=== PATIENT | female | born 1990 | race Caucasian/White ===

== ENCOUNTER 2020-03-29 08:54 | Outpatient (REF) | payer MEDICAID, SELFPAY | END 2020-03-29 08:55 | disposition home or self-care (01) | LOC: HO.LAB 08:54 | PROVIDERS: Visit Provider Internal Medicine | DX: Z20.828 Contact with and (suspected) exposure to other viral communicable diseases (principal) | CPT/HCPCS: C9803; U0003 ==

== ENCOUNTER 2020-04-17 17:21 | Emergency (ER) | payer MEDICAID, SELFPAY ==
--- NOTE | 2020-04-17 | ECG_ITS ---
Test Reason : CHESTPRESSURE Blood Pressure : / mmHG Vent. Rate : 082 BPM Atrial Rate : 082 BPM P-R Int : 150 ms QRS Dur : 090 ms QT Int : 366 ms P-R-T Axes : 064 077 051 degrees QTc Int : 427 ms Normal sinus rhythm with sinus arrhythmia Normal ECG No previous ECGs available Referred By: Bryon Ness Electronically Signed By:BLANCA DOHERTY MD
[2020-04-17 17:25] VITALS: BP 117/74; PULSE 85; RESP 18; TEMP 36.7; O2SAT 100
--- NOTE | 2020-04-17 17:40 | XR_ITS ---
EXAMINATION: XR chest 2V CLINICAL INFORMATION: Pain COMPARISON: No prior chest x-ray available in our system for comparison at the time of this dictation. TECHNIQUE: Frontal and lateral Lungs and Alessandra: Both lungs are clear. Pleura: Normal. Costophrenic angles are sharp. No pneumothorax. Heart: The heart is normal in size. Mediastinum: The mediastinum is within normal limits.. Bones: Skeletal structures included are normal for patient's age. XR/XR chest 2V IMPRESSION: Normal chest x-ray.
--- NOTE | 2020-04-17 19:02 | ED.CHESTPAIN ---
HPI - Chest Pain General Chief Complaint: Chest Pain Stated Complaint: ANXIETY,CHEST TIGHTNESS,SOB Time Seen by Provider: 04/17/20 17:40 History of Present Illness HPI narrative: Patient complains of episode of hyperventilating breathing fast palpitations feeling anxious , a mild headache but no weakness numbness or vision change, pain in the chest that was worse with movement and deep breath and was continuous not related to exertion no sweating no nausea no vomiting, accompanied by a feeling of tingling in the arms and legs, no fainting, no recent cough or fever, patient did have a recent COVID illness 2 weeks ago Right now symptoms are moderate they began half an hour ago and they continue unchanged She has had several prior similar episodes none of which were related to exertion which resolved on their own Related Data Previous Rx's Medication Instructions Recorded lorazepam [Ativan] 1 mg PO TID PRN #10 tab 04/17/20 lorazepam [Ativan] 1 mg PO TID PRN #10 tab 04/17/20 Allergies Allergy/AdvReac Type Severity Reaction Status Date / Time No Known Allergies Allergy Mild NOT Unverified 02/07/20 17:27 APPLICABLE Review of Systems Review of Systems: Positive for chest pain shortness of breath palpitations and tingling in extremities as well as feeling anxious Negative for fever cough feeling faint, fainting, weakness numbness confusion, no sweating, not related to exertion no abdominal pain no nausea no vomiting no diarrhea, no changes to bowel or bladder no burning with urination no frequency, no back pain no neck pain no rash, no leg swelling, or leg pain or calf pain PMFSH Past Medical History Medical History (Updated 04/17/20 @ 19:48 by TREVER Salazar) Gastritis Surgical History (Updated 04/17/20 @ 17:28 by Beverly Corral) H/O: hysterectomy Social History Social History Alcohol intake: never Smoked in Last 30 Days: No Use of substances other than those prescribed or required for medical reasons: No Advance Directives: No Advance Directives Information Provided: Yes Physical Exam Vital Signs: Vital Signs: Last Vital Signs Temp 98.0 F 04/17/20 17:25 Pulse 85 04/17/20 17:25 Resp 18 04/17/20 17:25 BP 117/74 04/17/20 17:25 Pulse Ox 100 04/17/20 17:25 Body Mass Index 30.0 Patient is breathing rapidly and anxious appearing, no acute distress, speaking full sentences, no respiratory distress The pharynx is clear and moist The eyes have no redness, no discharge The neck is supple without lymphadenopathy The chest is clear with full symmetrical equal breath sounds, no adventitious sounds The heart rate and rhythm is regular, no murmurs The abdomen is soft and nontender The extremities there is no calf tenderness or swelling, there is no edema Skin no rash Neuro no focal deficit, so patient is speaking full sentences, interacting appropriately, gait and balance are normal, motor is 5/5 x4, cerebellar exam is normal Course Course Course Narrative: EKG and chest x-ray were normal The patient was treated with Ativan with good relief of symptoms Her symptoms were not consistent with cardiac as they were fully reproducible with deep breath movement and palpation, she was PERC negative with a score of 0 and history and physical were consistent with hyperventilation and anxiety MDM - Chest Pain ECG Data ECG #1: Interpretation: EKG was normal sinus rhythm with a rate of 82 normal HI normal QRS duration QT was normal, there was no acute ischemic change, no acute ST changes Discharge Plan Discharge Clinical Impression: Atypical chest pain, Anxiety Patient Disposition: Home, Self-Care Additional Instructions: Your EKG and chest x-ray were normal Your symptoms were consistent with anxiety attack and were relieved with Ativan which is a good medicine for anxiety Follow with primary doctor for further evaluation Return to ER any time for any change or worsening chest pain, difficulty breathing, any worse condition or any concerns Prescriptions: New lorazepam [Ativan] 1 mg tablet 1 mg PO TID PRN (Reason: anxiety) Qty: 10 RF: 0 lorazepam [Ativan] 1 mg tablet 1 mg PO TID PRN (Reason: anxiety) Qty: 10 RF: 0 Interventions: ED Discharge Assessment Last Done: 04/17/20 20:07 Print Language: Beninese
[2020-04-17] MEDS: LORazepam 1 MG TABLET PO (19:05)
--- NOTE | 2020-04-17 19:11 | PC.NURSE ---
ASSUMED CARE OF PT. PT RESTING IN STRETCHER C/O MID STERNAL CP RATING PAIN 3/10. PT ALSO C/O ANXIETY. PT MEDICATED PER EMAR FOR ANXIETY. PA IN ROOM SPEAKING [place]ENLAND[place] WITH PT. PT AWAITING FURTHER ORDERS.
[2020-04-17] MEDS: Acetaminophen 325 MG TABLET 650 MG PO (20:12)
== END 2020-04-17 20:10 | disposition home or self-care (01) ==
PROVIDERS: Emergency Provider Emergency Medicine
DX: R51.9 Headache, unspecified (principal); R07.89 Other chest pain; F41.1 Generalized anxiety disorder; F43.0 Acute stress reaction; Z79.899 Other long term (current) drug therapy
CPT/HCPCS: 71046; 93005; 99283; 99284

== ENCOUNTER 2020-04-28 09:52 | Outpatient (REF) | payer MEDICAID, SELFPAY | END 2020-04-28 09:53 | disposition home or self-care (01) | LOC: HO.LAB 09:52 | PROVIDERS: Visit Provider Internal Medicine | DX: Z20.828 Contact with and (suspected) exposure to other viral communicable diseases (principal) | CPT/HCPCS: C9803; U0003 ==

== ENCOUNTER 2020-05-31 07:56 | Outpatient (REF) | payer MEDICAID, SELFPAY | END 2020-05-31 07:57 | disposition home or self-care (01) | LOC: HO.LAB 07:56 | PROVIDERS: Visit Provider Internal Medicine | DX: Z20.822 Contact with and (suspected) exposure to COVID-19 (principal) | CPT/HCPCS: 36415; C9803; U0003 ==

== ENCOUNTER → 2020-08-26 11:04 | Outpatient (BNVA) | payer MEDICAID, SELFPAY | PROVIDERS: Visit Provider Obstetrics & Gynecology | DX: R10.2 Pelvic and perineal pain (principal) | CPT/HCPCS: 99212 ==

== ENCOUNTER 2020-09-02 11:16 | Outpatient (REF) | payer MEDICAID, SELFPAY ==
--- NOTE | ~2020-09-02 | US_ITS ---
EXAMINATION: PELVIC ULTRASOUND CLINICAL INFORMATION: PELVIC AND PERINEAL PAIN COMPARISON: Previous pelvic ultrasound February 2019 TECHNIQUE: Transabdominal and transvaginal pelvic ultrasound was performed. Transvaginal exam was performed for better visualization of the ovaries. FINDINGS: The uterus has been removed. The ovaries are normal in size. The right ovary measures 3.2 x 2.1 x 3 cm, volume 11 mL. The left ovary measures 3.6 x 2 x 2.4 cm, volume 9 mL. There are multiple small peripheral cysts or follicles seen in both ovaries. There is no fluid in the pelvis. US/US transvaginal IMPRESSION: Multiple small bilateral peripheral cysts or follicles seen in both ovaries. The ovaries are normal in size. Appearance is questionable for polycystic ovarian syndrome. Clinical correlation recommended.
--- NOTE | ~2020-09-02 | US_ITS ---
EXAMINATION: PELVIC ULTRASOUND CLINICAL INFORMATION: PELVIC AND PERINEAL PAIN COMPARISON: Previous pelvic ultrasound February 2019 TECHNIQUE: Transabdominal and transvaginal pelvic ultrasound was performed. Transvaginal exam was performed for better visualization of the ovaries. FINDINGS: The uterus has been removed. The ovaries are normal in size. The right ovary measures 3.2 x 2.1 x 3 cm, volume 11 mL. The left ovary measures 3.6 x 2 x 2.4 cm, volume 9 mL. There are multiple small peripheral cysts or follicles seen in both ovaries. There is no fluid in the pelvis. US/US pelvic complete IMPRESSION: Multiple small bilateral peripheral cysts or follicles seen in both ovaries. The ovaries are normal in size. Appearance is questionable for polycystic ovarian syndrome. Clinical correlation recommended.
== END 2020-09-02 11:17 | disposition home or self-care (01) ==
LOC: HO.US 11:16
PROVIDERS: Visit Provider Obstetrics & Gynecology
DX: R10.2 Pelvic and perineal pain (principal)
CPT/HCPCS: 76830; 76856

== ENCOUNTER → 2020-09-16 11:04 | Outpatient (BNVA) | payer MEDICAID, SELFPAY | PROVIDERS: Visit Provider Obstetrics & Gynecology ==

== ENCOUNTER 2020-11-15 13:53 | Emergency (ER) | payer MEDICAID, SELFPAY ==
--- NOTE | ~2020-11-15 | CT_ITS ---
EXAMINATION: CT ABDOMEN AND PELVIS WITH CONTRAST CLINICAL INFORMATION: Mid to lower back pain. Status post liposuction. COMPARISON: CT of the abdomen and pelvis done on 03/18/2018. TECHNIQUE: Multidetector volumetric images were obtained from the superior aspect of the liver through the pubic symphysis following administration 85 mL of Omnipaque 350 intravenous contrast. Sagittal and coronal reformatted images were obtained on the technologist's workstation. Oral contrast: No This CT examination was performed using dose optimization techniques as appropriate, variously including the following: *Automated exposure control *Adjustment of mA and/or kV according to patient size (this includes techniques or standardized protocols for targeted exams where dose is matched to indication/reason for exam; i.e. extremities or head) *Use of iterative reconstruction technique DLP: 637.0 mGy-cm FINDINGS: LUNG BASES: The visualized lung bases are unremarkable. LIVER, GALLBLADDER, AND BILIARY TREE: Mild diffuse hypodensity consistent with hepatic steatosis is present without any superimposed focal liver lesion. The gallbladder is collapsed, otherwise unremarkable. No evidence of any intrahepatic or extrahepatic biliary ductal dilatation present. PANCREAS: Unremarkable. SPLEEN: Unremarkable. ADRENAL GLANDS: Unremarkable. KIDNEYS AND URETERS: The kidneys are normal in size, shape, and attenuation. No hydronephrosis, hydroureter, or calculi seen. No perinephric stranding. BLADDER: Nearly empty, not evaluated. GASTROINTESTINAL TRACT: The small and large bowel are unremarkable. Nonvisualized appendix without any inflammatory changes around the cecum. ABDOMINAL WALL: Remarkable for a loculated simple-appearing fluid collection overlying the posterior subcutaneous fat seen at midline extending on either side along the flank, measures approximately 15 x 18 x 3 cm at its maximum craniocaudal by transverse by anteroposterior dimension, starting at the level of spinous process of L2 vertebral body and extending inferiorly to the level of S3 vertebral body. Specific note is made of mildly thickened margin of the collection. There is no evidence of any air-fluid level present. The mean Hounsfield value of the collection measures 15. Given the patient history of recent surgery, likely represent postsurgical seroma/hematoma. Differential includes evolving early stage phlegmon and/or abscess. Further differentiation cannot be made based on this imaging appearance alone. Specific note is made of absence of any communication within the abdomen or pelvis. LYMPH NODES: Multiple prominent bilateral groin lymph nodes are present. There are no pathologically enlarged retroperitoneal lymph node measures or pelvic lymphadenopathy. VASCULAR: Unremarkable. PELVIC VISCERA: Small volume free fluid is present within the dependent part of the pelvis with Hounsfield value of 0 no evidence of any pelvic mass. OSSEOUS STRUCTURES: Unremarkable. CT/CT abdomen pelvis w con IMPRESSION: 1. Abnormal study showing evidence of a large loculated simple-appearing fluid collection seen overlying the posterior subcutaneous fat at midline, and extending on either side along the flanks starting at the level of spinous processes of L2 to inferiorly extending to the level of S3 vertebral body, measures 15 x 18 x 3 cm at its maximum craniocaudal by transverse by anteroposterior dimension. There is no evidence of any air-fluid level present. Note is made of mild thickening along the peripheral margin of the collection with Hounsfield value of 15. Given the patient history of recent surgery, likely represent postsurgical seroma/hematoma. Differential however includes evolving early stage phlegmon and/or abscess. Further differentiation cannot be made based on this imaging appearance alone. No evidence of any intra-abdominal or intrapelvic communication. 2. Nonspecific small volume free fluid is also noted within the dependent part of the pelvis without evidence of any pelvic mass or free air. 3. Multiple prominent bilateral groin lymph nodes, of indeterminate etiology. 4. Mild diffuse hepatic steatosis.
[2020-11-15 13:55] VITALS: BP 146/83; PULSE 98; RESP 16; TEMP 36.7; O2SAT 99
--- NOTE | 2020-11-15 14:14 | ED.BACK ---
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 patient describes the pain is burning. No radiation of pain. No abdominal pain. She has had some intermittent chills but denies fever, nausea, vomiting, diarrhea. No urinary symptoms. The patient tells me she did stay in [place] for approximately 7 days after her procedure and was told that this was a normal postoperative course. Patient however lives in [place] and returned here and has continued to have discomfort. Patient cleared pre-operatively by [facility] Related Data Home Medications Medication Instructions Recorded Confirmed omeprazole magnesium 20 mg 20 mg PO DAILY 08/26/20 09/16/20 tablet,delayed release sennosides 8.6 mg capsule 8.6 mg PO DAILY 08/26/20 09/16/20 Previous Rx's Medication Instructions Recorded lorazepam [Ativan] 1 mg PO TID PRN #10 tab 04/17/20 lorazepam [Ativan] 1 mg PO TID PRN #10 tab 04/17/20 oxycodone 5 mg PO Q8H PRN #10 tab 11/15/20 Allergies Allergy/AdvReac Type Severity Reaction Status Date / Time No Known Allergies Allergy Mild NOT Verified 08/26/20 11:27 APPLICABLE Review of Systems Review of Systems: Yes all other systems are reviewed and are negative Constitutional: Constitutional: Reports no additional constitutional complaints, Denies body ache(s), Denies chills, Denies fever(s), Denies headache(s) and Denies weakness Eyes: Eyes: Reports no additional eye complaints and Denies change in vision ENT: Reports system reviewed and no additional complaints, except as documented, Denies dizziness, Denies headache(s), Denies nasal congestion, Denies nasal discharge and Denies neck pain Cardiovascular: Cardiovascular: Reports no additional cardiovascular complaints, Denies chest pain, Denies leg edema and Denies dyspnea Respiratory: Respiratory: Reports no additional respiratory complaints, Denies cough and Denies dyspnea Gastrointestinal: Gastrointestinal: Reports no additional gastrointestinal complaints, Denies abdominal pain, Denies diarrhea, Denies nausea and Denies vomiting Genitourinary: Genitourinary: Reports no additional female genitourinary complaints and Denies urinary incontinence Musculoskeletal: Musculoskeletal: Reports no additional musculoskeletal complaints, Reports back pain, Denies arthralgias, Denies joint swelling, Denies neck pain, Denies numbness and Denies tingling Integumentary/Breasts: Skin/Breast: Reports system reviewed and no additional complaints, except as docu and Denies rash Neurologic: Reports system reviewed and no additional complaints, except as documented, Denies Abnormal speech present, Denies dizziness, Denies headache(s), Denies numbness, Denies tingling and Denies weakness PMFSH Past Medical History Attestation statement: The following information was validated with the patient. Source: old records reviewed and nursing notes reviewed Medical History Gastritis Surgical History H/O: hysterectomy Social History Social History Alcohol intake: never Advance Directives: No Advance Directives Information Provided: Yes Patient : No Physical Exam Vital Signs: Vital Signs: Last Vital Signs Temp 98.4 F 11/15/20 16:30 Pulse 83 11/15/20 16:30 Resp 18 11/15/20 16:30 BP 110/55 L 11/15/20 16:30 Pulse Ox 100 11/15/20 16:30 Body Mass Index 30.0 Const: General: cooperative, healthy appearing, comfortable and no acute distress Orientation/consciousness: patient oriented x3 Limitations: no limitations HENMT: Head: Yes normal to inspection Ears: hearing grossly normal bilaterally General nose exam: Normal external nose present Face and sinus: Yes normal facial exam Mouth: Normal oral and palatal mucosa present Throat: Yes posterior oropharynx normal Eyes: General: appearance normal, both eyes and all related structures Pupils: Equal, round and reactive pupils present Neck: Neck: Yes normal visual inspection Chest: Chest palpation & inspection: normal inspection of the chest Resp: Effort & Inspection: normal respiratory effort Auscultation: clear to auscultation bilaterally Cardio: Rate: regular rate Rhythm: regular rhythm Peripheral pulses: Peripheral pulses 2+ throughout GI: Inspection: Yes normal to inspection Palpation (GI): Soft to palpation and nontender Auscultation: normal bowel sounds Back/Spine/Pelvis: Other: to the lower back there is an area of swelling which crosses the midline on both sites. Soft and tender. No fluctuance, erythma or warmth Thoracic/Lumbar Spine: thoracic and lumbar spine normal to inspection Skin: General skin exam: no rashes or lesions noted Neuro: General: patient oriented x3, no focal motor deficits and normal sensation to monofilament Cranial nerves: Yes Equal, round and reactive pupils present Cognition (Neuro): normal cognition Speech: No Abnormal speech present Gait exam (Neuro): Normal gait present Motor exam (neuro): 5/5 motor strength present throughout Extrem: General: Yes normal to inspection, Yes no pedal edema and Yes no calf tenderness Course Course Course Narrative: 30-year-old female here with lower back pain for approximately 1 month status post 360 [place]. Has had some chills but no other associated symptoms. On exam the patient has an area of soft tissue swelling which extends across the midline spine with no warmth or redness. There is some swelling which is soft but no induration or obvious abscess collection. Will check labs, UA, CT A/P, provide analgesia. 1620- CT shows evidence of a large loculated simple appearing fluid collection overlying the posterior subcutaneous fat midline extending to bilateral flanks. May represent postsurgical seroma, hematoma versus abscess. Will discuss with surgical team. 1640-D/w with Dr Renee. Agree not likely abscess with no fever, no leukocytosis and no clinical findings on exam concerning for infection. Likely hematoma/serotoma. Recommended additional compression, f/u next week in office. 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 wrapped with additional [place] wrap. Reviewed worrisome signs/symptoms with patient and when to return to ED. Comfortable with discharge home. MDM - Back Pain/Injury MDM Narrative Medical decision making narrative: seroma, abscess Differential Diagnosis Differential diagnosis: Likely strain of lumbar region Medical Records Attestation: I reviewed the patient's medical records. Lab Data Attestation: I reviewed the patient's lab results. Result diagrams: 11/15/20 14:39 11/15/20 14:39 Labs: Lab Results 11/15/20 11/15/20 11/15/20 Range/Units 14:39 14:39 14:47 WBC 10.9 H (4.8-10.8) X10*3/uL RBC 3.93 L (4.20-5.50) X10*6/uL Hgb 11.0 L (12.0-16.0) g/dl Hct 34.0 L (37-47) % MCV 86.5 (80-98) fL MCH 28.0 (27.0-33.0) pg MCHC 32.4 (31.0-35.0) g/dl RDW 13.7 (11.0-16.0) % Plt Count 324 (160-400) X10*3/uL MPV 9.5 (9.4-12.3) fL Immature Gran % (Auto) 0.3 (0.0-0.4) % Neut % (Auto) 74.1 H (45-73) % Lymph % (Auto) 14.9 L (20-40) % [place] % (Auto) 9.7 (2-11) % Eos % (Auto) 0.6 (0-4) % Baso % (Auto) 0.4 (0-2) % Lymph # (Auto) 1.6 (1.2-4.9) X10*3/uL [place] # (Auto) 1.1 (0.1-1.2) X10*3/uL Eos # (Auto) 0.1 (0.0-0.4) X10*3/uL Baso # (Auto) 0.0 (0.0-0.2) X10*3/uL Abs Immat Gran (auto) 0.03 (0.00-0.03) X10*3/uL Absolute Neuts (auto) 8.1 (2.0-8.3) X10*3/uL Absolute Nucleated RBC 0.000 (0.0-0.012) X10*3/uL Nucleated RBC % (auto) 0.0 (0.0-0.2) /100WBC Sodium 138 (135-145) mmol/L Potassium 4.0 (3.3-5.1) mmol/L Chloride 104 (96-108) mmol/L Carbon Dioxide 24 (22-29) mmol/L Anion Gap 14 (12-20) BUN 7 L (9-16) mg/dL Creatinine 0.64 (0.5-1.4) mg/dL Estim Creat Clear Calc 131.0 Estimated GFR > 60 Random Glucose 85 (60-115) mg/dL Calcium 9.7 (8.4-10.2) mg/dL Magnesium 2.2 (1.6-2.6) mg/dL Total Bilirubin 0.7 (0.0-1.0) mg/dL Direct Bilirubin 0.4 (0.0-0.5) mg/dL AST 28 (5-31) U/L ALT 27 (0-31) U/L Alkaline Phosphatase 71 (39-117) U/L Total Protein 7.5 (6.5-8.0) g/dL Albumin 4.6 (3.5-5.0) g/dL Urine Color YELLOW Urine Appearance CLEAR Urine pH 6.0 (5.0-8.0) Ur Specific Orange 1.020 (1.005-1.025) Urine Protein TRACE (NEG-TRACE) MG/DL Urine Glucose (UA) NEG (NEG) MG/DL Urine Ketones NEG (NEG) MG/DL Urine Blood 2+ H (NEG) Urine Nitrite NEG (NEG) Ur Leukocyte Esterase NEG (NEG) Urine RBC 1-4 (0) /HPF Urine WBC 0-2 (0-4) /HPF Ur Squamous Epith Cells 2+ /LPF Urine Bacteria TRACE /LPF Urine Mucus 1+ /LPF Urine Test (NEGATIVE) 11/15/20 Range/Units 14:47 WBC (4.8-10.8) X10*3/uL RBC (4.20-5.50) X10*6/uL Hgb (12.0-16.0) g/dl Hct (37-47) % MCV (80-98) fL MCH (27.0-33.0) pg MCHC (31.0-35.0) g/dl RDW (11.0-16.0) % Plt Count (160-400) X10*3/uL MPV (9.4-12.3) fL Immature Gran % (Auto) (0.0-0.4) % Neut % (Auto) (45-73) % Lymph % (Auto) (20-40) % [place] % (Auto) (2-11) % Eos % (Auto) (0-4) % Baso % (Auto) (0-2) % Lymph # (Auto) (1.2-4.9) X10*3/uL [place] # (Auto) (0.1-1.2) X10*3/uL Eos # (Auto) (0.0-0.4) X10*3/uL Baso # (Auto) (0.0-0.2) X10*3/uL Abs Immat Gran (auto) (0.00-0.03) X10*3/uL Absolute Neuts (auto) (2.0-8.3) X10*3/uL Absolute Nucleated RBC (0.0-0.012) X10*3/uL Nucleated RBC % (auto) (0.0-0.2) /100WBC Sodium (135-145) mmol/L Potassium (3.3-5.1) mmol/L Chloride (96-108) mmol/L Carbon Dioxide (22-29) mmol/L Anion Gap (12-20) BUN (9-16) mg/dL Creatinine (0.5-1.4) mg/dL Estim Creat Clear Calc Estimated GFR Random Glucose (60-115) mg/dL Calcium (8.4-10.2) mg/dL Magnesium (1.6-2.6) mg/dL Total Bilirubin (0.0-1.0) mg/dL Direct Bilirubin (0.0-0.5) mg/dL AST (5-31) U/L ALT (0-31) U/L Alkaline Phosphatase (39-117) U/L Total Protein (6.5-8.0) g/dL Albumin (3.5-5.0) g/dL Urine Color Urine Appearance Urine pH (5.0-8.0) Ur Specific Orange (1.005-1.025) Urine Protein (NEG-TRACE) MG/DL Urine Glucose (UA) (NEG) MG/DL Urine Ketones (NEG) MG/DL Urine Blood (NEG) Urine Nitrite (NEG) Ur Leukocyte Esterase (NEG) Urine RBC (0) /HPF Urine WBC (0-4) /HPF Ur Squamous Epith Cells /LPF Urine Bacteria /LPF Urine Mucus /LPF Urine Test NEGATIVE (NEGATIVE) Imaging Data CT scan - abdomen: Attestation: I personally reviewed and interpreted this imaging study as follows: Radiologist's impression: 1. Abnormal study showing evidence of a large loculated simple-appearing fluid collection seen overlying the posterior subcutaneous fat at midline, and extending on either side along the flanks starting at the level of spinous processes of L2 to inferiorly extending to the level of S3 vertebral body, measures 15 x 18 x 3 cm at its maximum craniocaudal by transverse by anteroposterior dimension. There is no evidence of any air-fluid level present. Note is made of mild thickening along the peripheral margin of the collection with Hounsfield value of 15. Given the patient history of recent surgery, likely represent postsurgical seroma/hematoma. Differential however includes evolving early stage phlegmon and/or abscess. Further differentiation cannot be made based on this imaging appearance alone. No evidence of any intra-abdominal or intrapelvic communication. 2. Nonspecific small volume free fluid is also noted within the dependent part of the pelvis without evidence of any pelvic mass or free air. 3. Multiple prominent bilateral groin lymph nodes, of indeterminate etiology. 4. Mild diffuse hepatic steatosis. Discharge Plan Discharge Clinical Impression: Seroma after procedure Patient Disposition: Home, Self-Care Instructions: Seroma (DC) Additional Instructions: Continue girdle daily, apply [place] wrap over the girdle Follow-up tuesday with the surgery team Prescriptions: New oxycodone 5 mg tablet 5 mg PO Q8H PRN (Reason: pain) Qty: 10 RF: 0 No Action lorazepam [Ativan] 1 mg tablet 1 mg PO TID PRN (Reason: anxiety) Qty: 10 RF: 0 lorazepam [Ativan] 1 mg tablet 1 mg PO TID PRN (Reason: anxiety) Qty: 10 RF: 0 senna 8.6 mg capsule 8.6 mg PO DAILY RF: 0 omeprazole magnesium [Prilosec OTC] 20 mg tablet,delayed release (DR/EC) 20 mg PO DAILY RF: 0 Referrals: Homa Freedman MD [Physician] - 2 days Print Language: Honduran
[2020-11-15] MEDS: Ketorolac Tromethamine 30 MG/ML VIAL IVPUSH (14:44)
[2020-11-15 14:45] LABS: MANUAL DIFF FLAG NO
[2020-11-15 14:47] LABS: Basophils Percent Auto 0.4 % (0-2); Eosinophils Absolute Auto 0.1 X10*3/uL (0.0-0.4); Eosinophils Percent Auto 0.6 % (0-4); Imm Gran Abs Auto 0.03 X10*3/uL (0.00-0.03); Imm Gran Pct Auto 0.3 % (0.0-0.4); Lymphocytes Absolute Auto 1.6 X10*3/uL (1.2-4.9); Lymphocytes Percent Auto 14.9 % (20-40); Mean Corpuscular HGB Conc 32.4 g/dl (31.0-35.0); Mean Corpuscular Volume 86.5 fL (80-98); Mean Platelet Volume 9.5 fL (9.4-12.3); Monocytes Absolute Auto 1.1 X10*3/uL (0.1-1.2); Monocytes Percent Auto 9.7 % (2-11); Neutrophils Absolute Auto 8.1 X10*3/uL (2.0-8.3); Neutrophils Percent Auto 74.1 % (45-73); Platelet Count 324 X10*3/uL (160-400); Red Blood Count 3.93 X10*6/uL (4.20-5.50); Red Cell Distribution Width 13.7 % (11.0-16.0); White Blood Count 10.9 X10*3/uL (4.8-10.8)
[2020-11-15 14:53] LABS: Appearance Urine CLEAR; Color Urine YELLOW; Glucose Urine UA NEG (NEG); Leukocyte Esterase Urine NEG (NEG); Nitrite Urine NEG (NEG); Urine Blood 2+ (NEG); Urine Ketones NEG (NEG); Urine Protein TRACE MG/DL (NEG-TRACE)
[2020-11-15 14:55] LABS: UPreg QC Valid YES; Urine Pregnancy NEGATIVE (NEGATIVE)
[2020-11-15 15:00] LABS: Bacteria Urine TRACE /LPF; Squamous Epithelial Cell Urine 2+ /LPF; WBC Urine 0-2 /HPF (0-4)
[2020-11-15 15:01] LABS: Mucus Urine 1+ /LPF
[2020-11-15 15:10] LABS: Alanine Aminotransferase 27 U/L (0-31); Albumin Level 4.6 g/dL (3.5-5.0); Alkaline Phosphatase 71 U/L (39-117); Anion Gap 14 (12-20); Aspartate Amino Transferase 28 U/L (5-31); Bilirubin Direct 0.4 mg/dL (0.0-0.5); Bilirubin Total 0.7 mg/dL (0.0-1.0); Blood Urea Nitrogen 7 mg/dL (9-16); Calcium 9.7 mg/dL (8.4-10.2); Carbon Dioxide 24 mmol/L (22-29); Chloride 104 mmol/L (96-108); Estimated Glomerular Filt Rate > 60; Glucose Random 85 mg/dL (60-115); Magnesium 2.2 mg/dL (1.6-2.6); Sodium 138 mmol/L (135-145); Total Protein 7.5 g/dL (6.5-8.0)
[2020-11-15] MEDS: iohexoL 350 MG/ML 100 ML INFUS..BTL IV (15:24)
[2020-11-15 15:41] VITALS: BP 114/59; PULSE 85; RESP 18; O2SAT 98
[2020-11-15] MEDS: Morphine Sulfate 4 MG/ML CARTRIDGE IVPUSH (15:42)
[2020-11-15 16:30] VITALS: BP 110/55; PULSE 83; RESP 18; TEMP 36.9; O2SAT 100
== END 2020-11-15 17:26 | disposition home or self-care (01) ==
PROVIDERS: Nurse Practitioner Family; Emergency Provider Emergency Medicine
DX: L76.34 Postprocedural seroma of skin and subcutaneous tissue following other procedure (principal); Y83.8 Other surgical procedures as the cause of abnormal reaction of the patient, or of later complication, without mention of misadventure at the time of the procedure; Y92.9 Unspecified place or not applicable
CPT/HCPCS: 36415; 74177; 80048; 80076; 81001; 81025; 83735; 85025; 96374; 96375; 99284; J1885; J2270; Q9967

== ENCOUNTER 2020-11-18 13:50 | Outpatient (RCR) | payer MEDICAID, SELFPAY | END 2020-11-26 11:43 | disposition home or self-care (01) | LOC: HO.WCC 13:50 | PROVIDERS: Visit Provider Physician Assistant | DX: L76.34 Postprocedural seroma of skin and subcutaneous tissue following other procedure (principal) | CPT/HCPCS: 99213 ==

== ENCOUNTER → 2020-12-02 10:05 | Outpatient (BNVA) | payer MEDICAID, SELFPAY | PROVIDERS: PCP Nurse Practitioner Primary Care; Referring Provider Nurse Practitioner Primary Care; Visit Provider Surgery | DX: Z48.817 Encounter for surgical aftercare following surgery on the skin and subcutaneous tissue (principal); Z87.2 Personal history of diseases of the skin and subcutaneous tissue | CPT/HCPCS: 99202 ==

== ENCOUNTER 2021-10-07 14:35 | Outpatient (REF) | payer MEDICAID, SELFPAY ==
--- NOTE | ~2021-10-07 | MM_ITS ---
EXAMINATION: MM DIAGNOSTIC DIGITAL BREAST TOMOSYNTHESIS, BILATERAL US DIAGNOSTIC ULTRASOUND BREAST, BILATERAL CLINICAL INFORMATION: 31-year-old with pain upper outer left breast and palpable mass upper outer right breast. History fat transfer breast augmentation performed in [place]2020. No prior breast imaging. No known family history breast cancer. COMPARISON: None (current study represents initial baseline exam). TECHNIQUE: Digital breast tomosynthesis is performed in both the craniocaudal and mediolateral oblique views along with computer-aided detection (CAD). Synthesized 2D images are generated from the tomosynthesis. Ultrasound of each breast is targeted to the areas of clinical concern using grayscale imaging and color Doppler without and with harmonics. Patient is able to point to the areas of concern at time of imaging. FINDINGS: There are scattered areas of fibroglandular density (ACR BI-RADS breast composition Category b). There is unremarkable parenchymal pattern without suspicious mass or architectural abnormality. No skin thickening or coarsening of the Geovany's ligaments. No abnormal calcifications. The axilla are unremarkable. Right breast has an incidental complicated circumscribed oil cyst corresponding to the area of palpable concern mid upper outer quadrant measuring approximately 1.8 x 2.0 cm. There is some geographic intermediate attenuation within the oil cyst. There is incomplete peripheral fine benign rim calcification around the oil cyst. Ultrasound left breast demonstrates no cystic or solid mass or architectural abnormality. No focal duct ectasia. No skin thickening or edema tracking in soft tissue planes. Ultrasound right breast demonstrates the circumscribed mildly complicated oil cyst 11:00 position 9 cm from nipple residing just beneath the skin and measuring approximately 1.9 x 1.5 cm. There is a vascular internal geographic solid component measuring 0.5 x 1.0 cm. There is no peripheral or internal color flow. There is mild increased through-transmission of sound. A few scattered fine satellite cystic foci are also noted adjacent to the dominant oil cyst in the upper outer quadrant, small measuring under 6 mm. There is no solid mass or architectural abnormality. No skin thickening or edema tracking in soft tissue planes. Results are discussed with the patient at time of visit, using an landscape maintenance internship. MM/MM tomosynthesis diagnostic BI IMPRESSION: Right: -No mammographic evidence of malignancy or inflammatory changes. -Dominant oil cyst upper outer right breast corresponding to area of palpable concern measuring just under 2 cm, likely sequela from prior breast surgery. There are some adjacent incidental small satellite cystic foci. Left: -No mammographic evidence of malignancy or inflammatory changes. -Unremarkable ultrasound left breast. ASSESSMENT: BI-RADS 2: Benign RECOMMENDATION: 1. Patient may be managed based on the clinical impression. 2. Otherwise, routine annual screening mammography, beginning age 40, or earlier as clinical risk factors warrant. This patient's information was entered into a reminder system with a target due date for their next mammogram.
== END 2021-10-07 14:36 | disposition home or self-care (01) ==
LOC: HO.MAMMO 14:35
PROVIDERS: PCP Nurse Practitioner Primary Care; Visit Provider Nurse Practitioner Primary Care
DX: N64.4 Mastodynia (principal)
CPT/HCPCS: 76642; 77062; 77066

== ENCOUNTER → 2021-11-03 08:44 | Outpatient (BNVA) | payer MEDICAID, SELFPAY | PROVIDERS: PCP Nurse Practitioner Primary Care; Visit Provider Surgery | DX: N60.01 Solitary cyst of right breast (principal) | CPT/HCPCS: 99212 ==

== ENCOUNTER 2022-04-26 15:53 | Emergency (ER) | payer MEDICAID, SELFPAY ==
--- NOTE | 2022-04-26 | ECG_ITS ---
Test Reason : CHEST TIGHTNESS Blood Pressure : / mmHG Vent. Rate : 065 BPM Atrial Rate : 065 BPM P-R Int : 162 ms QRS Dur : 094 ms QT Int : 404 ms P-R-T Axes : 071 085 034 degrees QTc Int : 420 ms Normal sinus rhythm with sinus arrhythmia Normal ECG When compared with ECG of 17-APR-2020 17:32, No significant change was found Referred By: Generic ED Physician Electronically Signed By:TAHIR SOTO MD
--- NOTE | ~2022-04-26 | XR_ITS ---
EXAMINATION: XR CHEST CLINICAL INFORMATION: Chest pain COMPARISON: 04.17.2020 TECHNIQUE: 2 views of the chest were obtained. FINDINGS: Normal symmetric lung volumes. No parenchymal consolidation. No pleural effusion. No pneumothorax. Cardiomediastinal silhouette and pulmonary vascularity are within normal limits. No acute osseous abnormalities. XR/XR chest 2V IMPRESSION: Clear lungs
[2022-04-26 18:11] VITALS: BP 129/82; PULSE 62; RESP 16; TEMP 36.3; O2SAT 99; BMI 30.9
--- NOTE | 2022-04-26 18:13 | ED.GENADULT ---
HPI - General Adult General Chief complaint: Chest Pain Stated complaint: chest pain,left arm numbness Related Data Home Medications Medication Instructions Recorded Confirmed omeprazole magnesium 20 mg 20 mg PO DAILY 08/26/20 11/03/21 tablet,delayed release (Prilosec OTC) sennosides 8.6 mg capsule (senna) 8.6 mg PO DAILY 08/26/20 09/16/20 ergocalciferol (vitamin D2) 1,250 1,250 mcg PO QWEEK 11/03/21 11/03/21 mcg (50,000 unit) capsule ferrous sulfate 325 mg (65 mg 325 mg PO Q OTHER DAY 11/03/21 11/03/21 iron) tablet (FeroSul) Previous Rx's Medication Instructions Recorded lorazepam 1 mg tablet (Ativan) 1 mg PO TID PRN anxiety #10 tabs 04/17/20 lorazepam 1 mg tablet (Ativan) 1 mg PO TID PRN anxiety #10 tabs 04/17/20 oxycodone 5 mg tablet 5 mg PO Q8H PRN pain #10 tabs 11/15/20 Allergies Allergy/AdvReac Type Severity Reaction Status Date / Time No Known Allergies Allergy Mild NOT Verified 04/26/22 18:16 APPLICABLE [facility] Past Medical History Medical History Gastritis Surgical History H/O plastic surgery H/O: hysterectomy Family History Family History Maternal Aunt Breast cancer Maternal Aunt Breast cancer Maternal Aunt Breast cancer Mother Uterine cancer Maternal Aunt Uterine cancer Social History Social History Alcohol intake: current Patient Tobacco Use Status: Never used Tobacco Advance Directives: No Physical Exam ED Vital Signs: BMI result Body Mass Index 30.9 Course Course Course Narrative: 31F who drank red Bull today and now has chest pain and left arm pain. Denies traumatic injury, has LUE pain, denies DM/HTN and denies family hx of early cardiac issue. VS reviewed GEN: NAD PULM: CTAB CVS: RRR, no murmurs ABD: NT/ND - EKG, CXR Discharge Plan Discharge Clinical Impression: Atypical chest pain Patient Disposition: Elopement Prescriptions: No Action lorazepam [Ativan] 1 mg tablet 1 mg PO TID PRN (Reason: anxiety) Qty: 10 0RF Rx Instructions: This medication causes drowsiness, no driving for 6 hours after taking lorazepam [Ativan] 1 mg tablet 1 mg PO TID PRN (Reason: anxiety) Qty: 10 0RF Rx Instructions: This medication may cause drowsiness, no driving for 6 hours after taking oxycodone 5 mg tablet 5 mg PO Q8H PRN (Reason: pain) Qty: 10 0RF senna 8.6 mg capsule 8.6 mg PO DAILY omeprazole magnesium [Prilosec OTC] 20 mg tablet,delayed release (DR/EC) 20 mg PO DAILY ferrous sulfate [FeroSul] 325 mg (65 mg iron) tablet 325 mg PO Q OTHER DAY ergocalciferol (vitamin D2) 1,250 mcg (50,000 unit) capsule 1,250 mcg PO QWEEK Interventions: ANDIEBS Worksheet Last Done: 04/27/22 00:07 Discharge Date/Time: 04/27/22 00:47
--- NOTE | 2022-04-26 22:40 | PC.NURSE ---
no response called 3 times
--- OUTSIDE RECORDS SUMMARY | 2022-04-27 00:23 | XMS_ITS | Continuity of Care Document ---
:1990 Author Organization [facility] Address [address] [place] [id number]- Care Team Providers Name Role Phone Teddy BARNETT, Sonu Magana Primary Care Physician Encounter [facility] Date(s): 09/26/20 - 10/26/20 [facility] [employer] [address] [place] [id number] Allergies, Adverse Reactions, Alerts Substance Reaction Severity Status NKA Active
--- OUTSIDE RECORDS SUMMARY | 2022-04-27 00:23 | XMS_ITS | Continuity of Care Document ---
:1990 Author Organization [facility] Address [address] [place] [phone]- Care Team Providers Name Role Phone Sonu Espinal MD Primary Care Physician Encounter [facility] Date(s): 10/21/20 - 10/28/20 [facility] [address] [id number] Attending Physician: Panchito BARNETT, Robbin Wallace Referring Physician: Sonu Espinal MD Allergies, Adverse Reactions, Alerts Substance Reaction Severity Status NKA Active Procedures Procedure Date Related Diagnosis Body Site Status Hysterectomy 2020 Completed Colonoscopy 2019 Completed Endoscopy 2019 Completed Vaginal delivery 2011 Completed Vaginal delivery 2007 Completed
--- OUTSIDE RECORDS SUMMARY | 2022-04-27 00:23 | XMS_ITS | Continuity of Care Document ---
:1990 Author Organization [facility] Address [address] [place] [phone]- Care Team Providers Name Role Phone Teddy BARNETT, Sonu Magana Primary Care Physician Encounter [facility] Date(s): 10/21/20 - 01/01/21 [facility] [address] [address]- Attending Physician: Not on Staff, Attending MD Referring Physician: Robbin Flanagan MD Allergies, Adverse Reactions, Alerts Substance Reaction Severity Status NKA Active
--- OUTSIDE RECORDS SUMMARY | 2022-04-27 00:23 | XMS_ITS | Continuity of Care Document ---
:1990 Author Organization [facility] Address [address] [place] [phone]- Care Team Providers Name Role Phone Sonu Espinal MD Primary Care Physician Encounter [facility] Date(s): 10/21/20 - 01/01/21 [facility] [address] [place] [id number]- Attending Physician: Not on Staff, Attending MD Referring Physician: Sonu Espinal MD Allergies, Adverse Reactions, Alerts Substance Reaction Severity Status NKA Active
--- OUTSIDE RECORDS SUMMARY | 2022-04-27 00:23 | XMS_ITS | Continuity of Care Document ---
:1990 Author Organization [facility] Address [address] [place] [phone]- Care Team Providers Name Role Phone Teddy BARNETT, Sonu Magana Primary Care Physician [phone] Encounter [facility] Date(s): 12/02/20 - 01/01/21 [facility] [address] [place] [id number]- Attending Physician: Brian Aquino Admitting Physician: AdmBrian contreras Referring Physician: Admtr, Ar8 Allergies, Adverse Reactions, Alerts Substance Reaction Severity Status NKA Active
== END 2022-04-27 00:47 | disposition left against medical advice (07) ==
PROVIDERS: Emergency Provider Emergency Medicine
DX: R07.89 Other chest pain (principal); R20.0 Anesthesia of skin; M79.602 Pain in left arm; Z79.899 Other long term (current) drug therapy
CPT/HCPCS: 71046; 93005; 99283

== ENCOUNTER 2022-09-18 18:26 | Emergency (ER) | payer MEDICAID, SELFPAY ==
[2022-09-18 18:39] VITALS: BP 129/87; PULSE 72; RESP 18; TEMP 36.6; O2SAT 100; BMI 31.7
--- NOTE | 2022-09-18 18:43 | ED_ITS ---
HPI - Headache General Chief Complaint: Headache <TREVER [place] - Last Filed: 09/18/22 18:46> Stated Complaint: headache, body shakes <TREVER Houston - Last Filed: 09/18/22 18:46> Time Seen by Provider: 09/18/22 19:17 <TREVER Houston - Last Filed: 09/18/22 18:46> Source: patient <TREVER Lamb - Last Filed: 09/18/22 19:49> Mode of arrival: ambulatory <TREVER Lamb - Last Filed: 09/18/22 19:49> Limitations: no limitations <TREVER Lamb - Last Filed: 09/18/22 19:49> History of Present Illness HPI Narrative: 32 yo female presents to the ER for evaluation of posterior headache for the last couple of days along with generalized body aches and pains. She reports nausea associated with the headache and some photophobia. She denies history of migraines. She denies any weakness, numbness, tingling. No neck pain or fevers. <TREVER Lamb - Last Filed: 09/18/22 19:49> MD elicited complaint: headache <TREVER Lamb - Last Filed: 09/18/22 19:49> Onset (ago): day(s) <TREVER Lamb - Last Filed: 09/18/22 19:49> Onset description: gradually <TREVER Lamb - Last Filed: 09/18/22 19:49> Location: occipital <TREVER Lamb - Last Filed: 09/18/22 19:49> Severity: moderate <TREVER Lamb Last Filed: 09/18/22 19:49> Quality & Timing: aching and throbbing <TREVER Lamb Last Filed: 09/18/22 19:49> Exacerbating factors: light and noise <TREVER Lamb - Last Filed: 09/18/22 19:49> Relieving factors: nothing <TREVER Lamb Last Filed: 09/18/22 19:49> Context: occurred at rest <TREVER Lamb - Last Filed: 09/18/22 19:49> Associated symptoms: nausea <TREVER Lamb - Last Filed: 09/18/22 19:49> Treatments prior to arrival: none <TREVER Lamb - Last Filed: 09/18/22 19:49> Related Data Home Medications: Home Medications Medication Instructions Recorded Confirmed omeprazole magnesium 20 mg 20 mg PO DAILY 08/26/20 11/03/21 tablet,delayed release (Prilosec OTC) sennosides 8.6 mg capsule (senna) 8.6 mg PO DAILY 08/26/20 09/16/20 ergocalciferol (vitamin D2) 1,250 1,250 mcg PO QWEEK 11/03/21 11/03/21 mcg (50,000 unit) capsule ferrous sulfate 325 mg (65 mg 325 mg PO Q OTHER DAY 11/03/21 11/03/21 iron) tablet (FeroSul) Previous Rx's Medication Instructions Recorded lorazepam 1 mg tablet (Ativan) 1 mg PO TID PRN anxiety #10 tabs 04/17/20 lorazepam 1 mg tablet (Ativan) 1 mg PO TID PRN anxiety #10 tabs 04/17/20 oxycodone 5 mg tablet 5 mg PO Q8H PRN pain #10 tabs 11/15/20 ramfunwvtm-jmyppkvfldzxi-qhzqfnul 1 cap PO Q8H PRN headache #10 caps 09/18/22 50 mg-300 mg-40 mg capsule (Fioricet) ondansetron 4 mg disintegrating 4 mg PO Q8H PRN nausea and 09/18/22 tablet vomiting #7 tabs <TREVER Houston - Last Filed: 09/18/22 18:46> Allergies/Adverse Reactions: Allergies Allergy/AdvReac Type Severity Reaction Status Date / Time No Known Allergies Allergy Mild NOT Verified 04/26/22 18:16 APPLICABLE <TREVER Houston - Last Filed: 09/18/22 18:46> Review of Systems Review of Systems: Yes all other systems are reviewed and are negative <TREVER Lamb - Last Filed: 09/18/22 19:49> PMFSH Past Medical History Medical History: Medical History Gastritis <TREVER Houston - Last Filed: 09/18/22 18:46> Surgical History: Surgical History H/O plastic surgery H/O: hysterectomy <TREVER Houston - Last Filed: 09/18/22 18:46> Family History Family History: Family History Maternal Aunt Breast cancer Maternal Aunt Breast cancer Maternal Aunt Breast cancer Mother Uterine cancer Maternal Aunt Uterine cancer <TREVER Houston - Last Filed: 09/18/22 18:46> Social History Social History: Social History Alcohol intake: current Patient Tobacco Use Status: Never used Tobacco Advance Directives: No Advance Directives Information Provided: Yes <TREVER Houston - Last Filed: 09/18/22 18:46> Physical Exam Vital Signs: Vital Signs: Last Vital Signs Temp 97.8 F 09/18/22 18:39 Pulse 72 09/18/22 18:39 Resp 18 09/18/22 18:39 BP 129/87 09/18/22 18:39 Pulse Ox 100 09/18/22 18:39 O2 Del Method Room Air 09/18/22 18:39 BMI result Body Mass Index 31.7 <TREVER Houston - Last Filed: 09/18/22 18:46> Vital Signs: Last Vital Signs Temp 97.8 F 09/18/22 18:39 Pulse 72 09/18/22 18:39 Resp 18 09/18/22 18:39 BP 129/87 09/18/22 18:39 Pulse Ox 100 09/18/22 18:39 O2 Del Method Room Air 09/18/22 18:39 BMI result Body Mass Index 31.7 <TREVER Lamb - Last Filed: 09/18/22 19:49> Appearance: Alert. Oriented X3. No acute distress. Head: normocephalic, atraumatic. Eyes: Pupils equal, round and reactive to light. ENT: Pharynx normal. No tonsillar swelling or exudate. Neck: Normal inspection. Neck supple. CVS: Normal heart rate and rhythm. Pulses normal. Respiratory: No respiratory distress. Breath sounds normal. Skin: Skin warm and dry. Normal skin color. Normal skin turgor. No rashes. Extremities: No lower extremity edema. No joint swelling. Neuro/psych: Oriented X 3. No motor deficit. No sensory deficit. CN II-XII intact. Normal speech and cognition. Steady gait <TREVER Lamb - Last Filed: 09/18/22 19:49> Course Course Course Narrative: RME - 32 yo Argentine speaking female presents to the ER for headaches and nausea for several days. Denies hx of migraines in the past. VSS. Patient has no focal deficits. Pt stable to return to the waiting room until treatment room becomes available. <TREVER Houston - Last Filed: 09/18/22 18:46> Medications Administered Discontinued Medications Generic Name Dose Route Start Last Admin Trade Name Freq PRN Reason Stop Dose Admin Ketorolac Tromethamine 30 mg 09/18/22 19:30 09/18/22 19:43 Ketorolac Tromethamine 30 Mg/Ml Vial IM 09/18/22 19:31 30 mg ONCE ONE Administration Ondansetron HCl 4 mg 09/18/22 19:30 09/18/22 19:43 Ondansetron Odt 4 Mg Tab.Rapdis TRANSLINGU 09/18/22 19:31 4 mg ONCE ONE Administration <TREVER Houston - Last Filed: 09/18/22 18:46> Medications Administered Discontinued Medications Generic Name Dose Route Start Last Admin Trade Name Freq PRN Reason Stop Dose Admin Ketorolac Tromethamine 30 mg 09/18/22 19:30 09/18/22 19:43 Ketorolac Tromethamine 30 Mg/Ml Vial IM 09/18/22 19:31 30 mg ONCE ONE Administration Ondansetron HCl 4 mg 09/18/22 19:30 09/18/22 19:43 Ondansetron Odt 4 Mg Tab.Rapdis TRANSLINGU 09/18/22 19:31 4 mg ONCE ONE Administration <TREVER Lamb - Last Filed: 09/18/22 19:49> Medical Decision Making Medical Decision Making MDM Narrative: 32 yo female presents to the ER for evaluation of headaches and nausea as well as body aches. Neuro intact on arrival. COVID negative. VSS and exam unremarkable. chatting on her cell phone and appears well. She was given toradol and zofran here. she is stable for d/c home w/ fioricet and zofran. <TREVER Lamb - Last Filed: 09/18/22 19:49> Differential Diagnosis Differential Diagnoses: The differential diagnosis associated with the presentation includes <TREVER Lamb Last Filed: 09/18/22 19:49> migraine headache, tension headache, cluster headache, viral syndrome, doubt SAH or meningitis <TREVER Lamb Last Filed: 09/18/22 19:49> Lab Data MDM Lab Attestation statement: I reviewed the patient's lab results. <TREVER Lamb Last Filed: 09/18/22 19:49> Labs: Lab Results 09/18/22 Range/Units 19:09 COVID-19 (JERRY) Negative (Negative) COVID-19 Clin Com See Note <TREVER Houston - Last Filed: 09/18/22 18:46> Lab Results 09/18/22 Range/Units 19:09 COVID-19 (JERRY) Negative (Negative) COVID-19 Clin Com See Note <TREVER Lamb - Last Filed: 09/18/22 19:49> External Record Review External record reviewed: Prior outpatient labs <TREVER Lamb - Last Filed: 09/18/22 19:49> Prescription Management I considered prescription management with: Pain Medication <TREVER Lamb Last Filed: 09/18/22 19:49> Critical Care Time Critical Care Time Critical Care Time: No <TREVER Lamb Last Filed: 09/18/22 19:49> Discharge Plan Discharge Clinical Impression: Headache <TREVER Houston Last Filed: 09/18/22 18:46> Patient Disposition: Home, Self-Care <TREVER Houston Last Filed: 09/18/22 18:46> Instructions: General Headache (ED) <TREVER Houston Last Filed: 09/18/22 18:46> Additional Instructions: You tested negative for COVID today You could have another viral illness. Rest and drink plenty of fluids. Take over the counter cold/flu medications as needed for your symptoms. Take the prescribed medications as directed - one is for headache and one is for nausea Follow up with your doctor If you develop new or worsening symptoms call 911 or come back to the ER for further evaluation. Latrell negativo para COVID hoy Podr?as tener otra enfermedad viral. Descanse y rocco muchos l?quidos. Protivin medicamentos de venta braden para el resfriado o la gripe seg?n sea necesario para gricelda s?ntomas. Protivin los medicamentos recetados seg?n las indicaciones: skyla para el dolor de genia y otro para las n?useas. Seguimiento con diallo m?dico Si desarrolla s?ntomas nuevos o que empeoran, llame al 911 o regrese a la janak de emergencias para sharron evaluaci?n adicional. <TREVER Houston - Last Filed: 09/18/22 18:46> Prescriptions: New iqxpsffxmi-psubtstgzjwva-tbng [Fioricet] 50-300-40 mg capsule 1 cap PO Q8H PRN (Reason: headache) Qty: 10 0RF ondansetron 4 mg tablet,disintegrating 4 mg PO Q8H PRN (Reason: nausea and vomiting) Qty: 7 0RF No Action lorazepam [Ativan] 1 mg tablet 1 mg PO TID PRN (Reason: anxiety) Qty: 10 0RF Rx Instructions: This medication causes drowsiness, no driving for 6 hours after taking lorazepam [Ativan] 1 mg tablet 1 mg PO TID PRN (Reason: anxiety) Qty: 10 0RF Rx Instructions: This medication may cause drowsiness, no driving for 6 hours after taking oxycodone 5 mg tablet 5 mg PO Q8H PRN (Reason: pain) Qty: 10 0RF senna 8.6 mg capsule 8.6 mg PO DAILY omeprazole magnesium [Prilosec OTC] 20 mg tablet,delayed release (DR/EC) 20 mg PO DAILY ferrous sulfate [FeroSul] 325 mg (65 mg iron) tablet 325 mg PO Q OTHER DAY ergocalciferol (vitamin D2) 1,250 mcg (50,000 unit) capsule 1,250 mcg PO QWEEK <TREVER Houston - Last Filed: 09/18/22 18:46> Stand Alone Forms: Work/School Release <TREVER Houston - Last Filed: 09/18/22 18:46>
[2022-09-18 19:25] LABS: COVID-19 Test Negative (Negative); IDNOW Serial# 08D9AD1C
[2022-09-18] MEDS: Ondansetron ODT 4 MG TAB.RAPDIS TRANSLINGU (19:43)
[2022-09-18] MEDS: Ketorolac Tromethamine 30 MG/ML VIAL IM (19:43)
== END 2022-09-18 19:55 | disposition home or self-care (01) ==
PROVIDERS: Physician Assistant Medical; Emergency Provider Internal Medicine
DX: R51.9 Headache, unspecified (principal); Z20.822 Contact with and (suspected) exposure to COVID-19
CPT/HCPCS: 87635; 96372; 99282; 99284; J1885

== ENCOUNTER 2022-10-13 08:41 | Emergency (ER) | payer MEDICAID, SELFPAY ==
[2022-10-13 08:55] VITALS: BP 128/78; PULSE 71; RESP 18; TEMP 36.6; O2SAT 99; BMI 30.9
[2022-10-13 09:39] LABS: COVID-19 Test Negative (Negative); IDNOW Serial# 6674DD1D; IDNOW Serial# BCCEAD1C; Strep A Nucleic Acid Negative (Negative)
--- NOTE | 2022-10-13 10:28 | ED.GENADULT ---
HPI - General Adult General Chief complaint: General Medical Stated complaint: Sore Throat Time Seen by Provider: 10/13/22 09:59 History of Present Illness HPI narrative: patient complains of sore throat and hoarse voice for past 24 hours, it hurts to swallow but she is able to swallow She has a mild runny nose no cough no difficulty breathing no nausea or vomiting no rash no ear pain Related Data Home Medications Medication Instructions Recorded Confirmed omeprazole magnesium 20 mg 20 mg PO DAILY 08/26/20 11/03/21 tablet,delayed release (Prilosec OTC) sennosides 8.6 mg capsule (senna) 8.6 mg PO DAILY 08/26/20 09/16/20 ergocalciferol (vitamin D2) 1,250 1,250 mcg PO QWEEK 11/03/21 11/03/21 mcg (50,000 unit) capsule ferrous sulfate 325 mg (65 mg 325 mg PO Q OTHER DAY 11/03/21 11/03/21 iron) tablet (FeroSul) Previous Rx's Medication Instructions Recorded lorazepam 1 mg tablet (Ativan) 1 mg PO TID PRN anxiety #10 tabs 04/17/20 lorazepam 1 mg tablet (Ativan) 1 mg PO TID PRN anxiety #10 tabs 04/17/20 oxycodone 5 mg tablet 5 mg PO Q8H PRN pain #10 tabs 11/15/20 psvvyhriyx-ideviuihrbxey-kziyfbpy 1 cap PO Q8H PRN headache #10 caps 09/18/22 50 mg-300 mg-40 mg capsule (Fioricet) ondansetron 4 mg disintegrating 4 mg PO Q8H PRN nausea and 09/18/22 tablet vomiting #7 tabs ibuprofen 600 mg tablet 600 mg PO Q6H PRN fever or pain 10/13/22 #20 tabs prednisone 20 mg tablet 40 mg PO DAILY 2 days #4 tabs 10/13/22 Allergies Allergy/AdvReac Type Severity Reaction Status Date / Time No Known Allergies Allergy Mild NOT Verified 10/13/22 08:54 APPLICABLE [facility] Past Medical History Medical History Gastritis Surgical History H/O plastic surgery H/O: hysterectomy Family History Family History Maternal Aunt Breast cancer Maternal Aunt Breast cancer Maternal Aunt Breast cancer Mother Uterine cancer Maternal Aunt Uterine cancer Social History Social History Alcohol intake: current Patient Tobacco Use Status: Never used Tobacco Advance Directives: No Advance Directives Information Provided: Yes Physical Exam ED Vital Signs: Vital Signs - 24 hr 10/13/22 08:55 Temperature 98 F Pulse Rate 71 Respiratory Rate 18 Blood Pressure 128/78 Pulse Oximetry 99 Oxygen Delivery Method Room Air BMI result Body Mass Index 30.9 general appearance no distress Eyes no redness or discharge The sinuses are nontender The pharynx had redness and some bilateral symmetric tonsillar swelling no exudate, the voice was hoarse, mucous membranes were moist, uvula was midline The neck was supple The chest was clear to auscultation bilateral Heart no murmur Extremities for range of motion x4 Skin no rash Course Course Course Narrative: strep and COVID tests were negative, patient it who tolerates liquid was treated with Decadron and Motrin and discharged, well-appearing Medical Decision Making Lab Data Labs: Lab Results 10/13/22 10/13/22 Range/Units 09:16 09:16 COVID-19 (JERRY) Negative (Negative) COVID-19 Clin Com See Note S. pyogenes GrpA KRISTINE Negative (Negative) Discharge Plan Discharge Clinical Impression: Pharyngitis Patient Disposition: Home, Self-Care Additional Instructions: test for COVID and strep were negative, so this is likely a viral sore throat We are treating with steroids for 2 days, Tylenol or Motrin for pain Drink plenty of fluids Sometimes honey and warm fluids is helpful Return any time any worse condition or any concerns Prescriptions: New prednisone 20 mg tablet 40 mg PO DAILY 2 Days Qty: 4 0RF ibuprofen 600 mg tablet 600 mg PO Q6H PRN (Reason: fever or pain) Qty: 20 0RF No Action lorazepam [Ativan] 1 mg tablet 1 mg PO TID PRN (Reason: anxiety) Qty: 10 0RF Rx Instructions: This medication causes drowsiness, no driving for 6 hours after taking lorazepam [Ativan] 1 mg tablet 1 mg PO TID PRN (Reason: anxiety) Qty: 10 0RF Rx Instructions: This medication may cause drowsiness, no driving for 6 hours after taking oxycodone 5 mg tablet 5 mg PO Q8H PRN (Reason: pain) Qty: 10 0RF kmjtrwrxnj-plrlklknudofv-utdx [Fioricet] 50-300-40 mg capsule 1 cap PO Q8H PRN (Reason: headache) Qty: 10 0RF ondansetron 4 mg tablet,disintegrating 4 mg PO Q8H PRN (Reason: nausea and vomiting) Qty: 7 0RF senna 8.6 mg capsule 8.6 mg PO DAILY omeprazole magnesium [Prilosec OTC] 20 mg tablet,delayed release (DR/EC) 20 mg PO DAILY ferrous sulfate [FeroSul] 325 mg (65 mg iron) tablet 325 mg PO Q OTHER DAY ergocalciferol (vitamin D2) 1,250 mcg (50,000 unit) capsule 1,250 mcg PO QWEEK
[2022-10-13] MEDS: dexAMETHasone 2 MG TABLET 10 MG PO (10:39)
[2022-10-13] MEDS: Ibuprofen 600 MG TABLET PO (10:39)
== END 2022-10-13 10:43 | disposition home or self-care (01) ==
PROVIDERS: Emergency Provider Emergency Medicine Emergency Medical Services; PCP Internal Medicine Geriatric Medicine
DX: J02.9 Acute pharyngitis, unspecified (principal); Z20.822 Contact with and (suspected) exposure to COVID-19; Z79.899 Other long term (current) drug therapy
CPT/HCPCS: 87635; 87651; 99283; 99284; J8540

== ENCOUNTER 2023-03-02 18:37 | Outpatient (REF) | payer MEDICAID, SELFPAY ==
[2023-03-03 05:39] LABS: CT PCR NOT DETECTED (Not Detect.); NG PCR NOT DETECTED (Not Detect.)
[2023-03-03 09:53] LABS: BV Int Neg Control Negative (Negative); BV Int Pos Control Positive (Positive)
== END 2023-03-02 18:38 | disposition home or self-care (01) ==
LOC: HO.HHCLNP 18:37
PROVIDERS: Visit Provider Emergency Medicine
DX: N89.8 Other specified noninflammatory disorders of vagina (principal)
CPT/HCPCS: 0353U; 87480; 87510; 87660

== ENCOUNTER 2023-06-16 10:33 | Outpatient (REF) | payer MEDICAID, SELFPAY ==
[2023-06-16 12:17] LABS: HIV AB/AG Nonreactive (Nonreactive); HIV Num 1 0.07 S/CO (0.00-0.99); ~HepC Num1 0.08 S/CO (0.00-0.79); ~Hepatitis C Antibody Nonreactive (Nonreactive)
[2023-06-16 13:48] LABS: CT PCR NOT DETECTED (Not Detect.); NG PCR NOT DETECTED (Not Detect.)
[2023-06-17 09:29] LABS: RPR Rapid Plasma Reagin NON-REACTIVE (NON-REACTIVE)
== END 2023-06-16 10:34 | disposition home or self-care (01) ==
LOC: HO.HHCL 10:33
PROVIDERS: Visit Provider Nurse Practitioner Primary Care
DX: R10.2 Pelvic and perineal pain (principal); N80.9 Endometriosis, unspecified; Z11.3 Encounter for screening for infections with a predominantly sexual mode of transmission
CPT/HCPCS: 0353U; 86592; 86803; 87389

== ENCOUNTER 2023-07-15 08:26 | Emergency (ER) | payer MEDICAID, SELFPAY ==
[2023-07-15 08:42] VITALS: BP 126/82; PULSE 68; RESP 18; TEMP 36.6; O2SAT 98; BMI 31.8
[2023-07-15 09:40] LABS: Influenza A PCR NEGATIVE (Negative); Influenza B PCR NEGATIVE (Negative); Resp Syncy Virus RNA Qual PCR NEGATIVE (Negative); SARS COV2 PCR INHOUSE NEGATIVE (Negative)
== END 2023-07-15 12:40 | disposition left against medical advice (07) ==
LOC: HO.ED 12:40
PROVIDERS: Emergency Provider Emergency Medicine
DX: R51.9 Headache, unspecified (principal); R19.7 Diarrhea, unspecified; R42 Dizziness and giddiness; Z11.52 Encounter for screening for COVID-19; Z20.828 Contact with and (suspected) exposure to other viral communicable diseases
CPT/HCPCS: 0241U; 99281; 99283

== ENCOUNTER 2023-09-16 13:30 | Emergency (ER) | payer MEDICAID, SELFPAY ==
[2023-09-16] VITALS (7 sets, daily range): BP systolic 97–139; BP diastolic 54–92; PULSE 61–90; RESP 16–18; TEMP 36.3–36.7; O2SAT 100; BMI 32.1
--- NOTE | 2023-09-16 14:16 | ED_ITS ---
HPI - General Adult General Chief complaint: Headache Stated complaint: headache Time Seen by Provider: 09/16/23 21:01 Source: patient Mode of arrival: ambulatory Limitations: no limitations History of Present Illness HPI narrative: Patient comes to the emergency room complaining patient has sensation on the left side of the head. Patient states that she feels a bit unsteady but still able to walk. Patient complaining of nausea, denies visual changes. Patient states she took some kind of migraine medication earlier today without significant relief. Patient states that when she was running her fingers over her scalp, she noticed a bump. Patient denies any history of trauma. Related Data Home Medications ?Medication ?Instructions ?Recorded ?Confirmed omeprazole magnesium 20 mg 20 mg PO DAILY 08/26/20 11/03/21 tablet,delayed release (Prilosec OTC) sennosides 8.6 mg capsule (senna) 8.6 mg PO DAILY 08/26/20 09/16/20 ergocalciferol (vitamin D2) 1,250 1,250 mcg PO QWEEK 11/03/21 11/03/21 mcg (50,000 unit) capsule ferrous sulfate 325 mg (65 mg 325 mg PO Q OTHER DAY 11/03/21 11/03/21 iron) tablet (FeroSul) Previous Rx's ?Medication ?Instructions ?Recorded lorazepam 1 mg tablet (Ativan) 1 mg PO TID PRN anxiety #10 tabs 04/17/20 lorazepam 1 mg tablet (Ativan) 1 mg PO TID PRN anxiety #10 tabs 04/17/20 oxycodone 5 mg tablet 5 mg PO Q8H PRN pain #10 tabs 11/15/20 lgaftoipli-jghphskvphsnq-nuvqzayr 1 cap PO Q8H PRN headache #10 caps 09/18/22 50 mg-300 mg-40 mg capsule (Fioricet) ondansetron 4 mg disintegrating 4 mg PO Q8H PRN nausea and 09/18/22 tablet vomiting #7 tabs ibuprofen 600 mg tablet 600 mg PO Q6H PRN fever or pain 10/13/22 #20 tabs prednisone 20 mg tablet 40 mg (2 x 20 mg) PO DAILY 2 days 10/13/22 #4 tabs ketorolac 10 mg tablet 10 mg PO Q8H PRN pain #10 tabs 09/17/23 metoclopramide HCl 5 mg tablet 5 mg PO TID-QID PRN nausea and 09/17/23 (Reglan) vomiting #10 tabs Allergies Allergy/AdvReac Type Severity Reaction Status Date / Time No Known Allergies Allergy Mild NOT Verified 09/16/23 14:18 APPLICABLE Review of Systems Review of Systems: Constitutional : No Weight loss, No Fever, No Chills, No Night Sweats, No Fatigue, No Malaise ENT/Mouth : No Hearing loss, No Ear Pain, No Nasal Congestion, No Sinus Pain, No Hoarseness, No sore throat, No Rhinorrhea, No Swallowing Difficulty Eyes: No Eye Pain, No Swelling, No Redness, No Foreign Body, No Discharge, No Vision Changes Cardiovascular : No Chest Pain, No SOB, No Dyspnea on Exertion, No Orthopnea, No Edema, No Palpitations Respiratory : No Cough, No Sputum, No Wheezing, No Smoke Exposure, No Dyspnea Gastrointestinal : Complaining of nausea, No Vomiting, No Diarrhea, No Constipation, No abdominal Pain, No Hematochezia, No Melena Genitourinary : no irregular bleeding, No Dysuria, No Urinary Frequency, No Hematuria, No Urinary Incontinence, No Urgency, No Flank Pain, No Urinary Flow Changes, No Hesitancy Musculoskeletal : No joint pain, No Myalgias, No Joint Swelling Skin : No Skin Lesions, No rash Neuro : No Weakness, No Numbness, No Paresthesias, No Loss of Consciousness, complaining of dizziness described as walking sensation, complaining of head pressure Psych : No Anxiety/Panic, No Depression, No SI/HI/AH/VH, No Social Issues, Heme/Lymph: No Bruising, No Bleeding,No Lymphadenopathy Endocrine : No Polyuria, No Polydipsia, No Temperature Intolerance [facility] Past Medical History Medical History Gastritis Surgical History H/O plastic surgery H/O: hysterectomy Family History Family History Maternal Aunt Breast cancer Maternal Aunt Breast cancer Maternal Aunt Breast cancer Mother Uterine cancer Maternal Aunt Uterine cancer Social History Social History Alcohol intake: never Patient Tobacco Use Status: Never used Tobacco Advance Directives: No Advance Directives Information Provided: No Physical Exam ED Vital Signs: Vital Signs - 24 hr 09/16/23 14:16 09/16/23 18:12 09/16/23 20:22 Temperature 97.6 F 97.3 F 98.1 F Pulse Rate 68 65 62 Respiratory Rate 16 18 18 Blood Pressure 139/87 128/92 H 130/77 Pulse Oximetry 100 100 100 Oxygen Delivery Method Room Air Room Air Room Air 09/16/23 22:17 09/16/23 22:24 09/16/23 22:25 Temperature Pulse Rate 83 85 90 Respiratory Rate Blood Pressure 106/59 L 136/75 112/61 Pulse Oximetry Oxygen Delivery Method 09/16/23 23:59 09/16/23 23:59 09/16/23 23:59 Temperature Pulse Rate 64 61 77 Respiratory Rate Blood Pressure 97/54 L 110/60 107/70 Pulse Oximetry Oxygen Delivery Method BMI result Body Mass Index 32.1 Const Other: Appearance: Alert. Oriented X3. No acute distress. Eyes: Pupils equal, round and reactive to light. ENT: Pharynx normal. Neck: Normal inspection. Neck supple. No lymph nodes noted. No crepitus CVS: Normal heart rate and rhythm. Pulses normal. Normal S1 and S2 Respiratory: No respiratory distress. Breath sounds normal. No Wheezing. No rales Abdomen: Soft and nontender. No rigidity. No distention. Skin: Skin warm and dry. Normal skin color. Normal skin turgor. Extremities: No lower extremity edema. No Lacerations. No Rash Neuro: Oriented X 3. No motor deficit. No sensory deficit. Moving all extremities. No slurred speech. CN 2 through 12 grossly intact Psych: calm, cooperative, normal affect Course Course Course Narrative: RME performed by Lilia Yee PA-C. Patient is a 33 year old assigned female at presenting to the emergency department with a headache, nausea, and dizziness. Detailed physical exam and review of systems are deferred to the primary care nurse practitioner. Labs, imaging, and swabs ordered. Patient placed back in the waiting room pending room availability and results. Medications Administered Discontinued Medications Generic Name Dose Route Start Last Admin Trade Name Freq PRN Reason Stop Dose Admin Acetaminophen 975 mg 09/16/23 14:20 09/16/23 14:22 Acetaminophen 325 Mg Tablet PO 09/16/23 14:21 975 mg ONCE ONE Administration Diphenhydramine HCl 50 mg 09/16/23 21:21 09/16/23 22:01 Diphenhydramine Hcl 50 Mg/Ml Vial IVPUSH 09/16/23 21:22 50 mg ONCE ONE Administration Sodium Chloride 1,000 mls @ 999 mls/hr 09/16/23 21:21 09/16/23 21:59 Ns IVCONT 09/16/23 22:21 999 mls/hr .Q1H1M ONE Administration Ketorolac Tromethamine 30 mg 09/16/23 21:21 09/16/23 22:03 Ketorolac Tromethamine 30 Mg/Ml Vial IVPUSH 09/16/23 21:22 30 mg ONCE ONE Administration Metoclopramide HCl 10 mg 09/16/23 21:21 09/16/23 22:07 Metoclopramide Hcl 10 Mg/2 Ml Vial IVPUSH 09/16/23 21:22 10 mg ONCE ONE Administration Medical Decision Making Medical Decision Making MDM Narrative: I discussed the physical exam with the patient, patient does not have any lumps in the scalp, but patient felt when she was running her fingers to the scalp, is normal anatomy of the scalp -patient giving IV fluids, ketorolac, Benadryl, Phenergan -my interpretation of labs: Serology negative for influenza COVID and RSV -patient's orthostatics were positive, patient received IV fluids. --after IV treatment, patient states that she feels much better, migraine headache nearly gone. -after IV hydration, patient's orthostatic negative, patient asymptomatic Differential Diagnosis Differential Diagnoses: The differential diagnosis associated with the presentation includes (Orthostatic hypotension, viral illness, migraine headache) Lab Data [facility] Lab Attestation statement: I reviewed the patient's lab results. Labs: Lab Results 09/16/23 Range/Units 14:22 Influenza Type A (PCR) NEGATIVE (Negative) Influenza Type B (PCR) NEGATIVE (Negative) RSV RNA Qual (PCR) NEGATIVE (Negative) SARS-CoV-2 RNA (RT-PCR) NEGATIVE (Negative) Critical Care Time Critical Care Time Critical Care Time: Yes Total Critical Care Time: 45 Attestation: I have personally provided critical care time. Time includes review of lab data, radiology results, discussion with consultants, and monitoring for potential decompensation. Intervention performed as documented. Discharge Plan Discharge Clinical Impression: Headache, Orthostatic hypotension Patient Disposition: Home, Self-Care Instructions: Acute Headache (ED), Dizziness (ED) Additional Instructions: Please follow-up with your primary care physician tomorrow. If you have any worsening or new symptoms, please return to the emergency room or call 911 Prescriptions: New ketorolac 10 mg tablet 10 mg PO Q8H PRN (Reason: pain) Qty: 10 0RF Rx Instructions: maximum total duration of 5 days from all oral, intranasal, or parenteral formulations metoclopramide HCl [Reglan] 5 mg tablet 5 mg PO TID-QID PRN (Reason: nausea and vomiting) Qty: 10 0RF Rx Instructions: Take together with ketorolac p.r.n. migraines No Action lorazepam [Ativan] 1 mg tablet 1 mg PO TID PRN (Reason: anxiety) Qty: 10 0RF Rx Instructions: This medication causes drowsiness, no driving for 6 hours after taking lorazepam [Ativan] 1 mg tablet 1 mg PO TID PRN (Reason: anxiety) Qty: 10 0RF Rx Instructions: This medication may cause drowsiness, no driving for 6 hours after taking oxycodone 5 mg tablet 5 mg PO Q8H PRN (Reason: pain) Qty: 10 0RF lvrlvvayqt-gfssvaveodxiv-nclw [Fioricet] 50-300-40 mg capsule 1 cap PO Q8H PRN (Reason: headache) Qty: 10 0RF ondansetron 4 mg tablet,disintegrating 4 mg PO Q8H PRN (Reason: nausea and vomiting) Qty: 7 0RF prednisone 20 mg tablet 40 mg PO DAILY 2 Days Qty: 4 0RF ibuprofen 600 mg tablet 600 mg PO Q6H PRN (Reason: fever or pain) Qty: 20 0RF senna 8.6 mg capsule 8.6 mg PO DAILY omeprazole magnesium [Prilosec OTC] 20 mg tablet,delayed release (DR/EC) 20 mg PO DAILY ferrous sulfate [FeroSul] 325 mg (65 mg iron) tablet 325 mg PO Q OTHER DAY ergocalciferol (vitamin D2) 1,250 mcg (50,000 unit) capsule 1,250 mcg PO QWEEK Print Language: Amharic
[2023-09-16] MEDS: Acetaminophen 325 MG TABLET 975 MG PO (14:22)
[2023-09-16 15:38] LABS: Influenza A PCR NEGATIVE (Negative); Influenza B PCR NEGATIVE (Negative); Resp Syncy Virus RNA Qual PCR NEGATIVE (Negative); SARS COV2 PCR INHOUSE NEGATIVE (Negative)
[2023-09-16] MEDS: 0.9 % Sodium Chloride 1,000 ML 999 ML IVCONT (21:59)
[2023-09-16] MEDS: diphenhydrAMINE HCL 50 MG/ML VIAL IVPUSH (22:01)
[2023-09-16] MEDS: Ketorolac Tromethamine 30 MG/ML VIAL IVPUSH (22:03)
[2023-09-16] MEDS: Metoclopramide HCl 10 MG/2 ML VIAL IVPUSH (22:07)
[2023-09-17 00:47] VITALS: BP 109/67; PULSE 62; RESP 14; TEMP 36.7; O2SAT 96
[2023-09-17 00:50] VITALS: BP 109/67; PULSE 62; RESP 14; TEMP 36.7; O2SAT 96
== END 2023-09-17 00:51 | disposition home or self-care (01) ==
PROVIDERS: Physician Assistant Medical; Emergency Provider Emergency Medicine
DX: R51.9 Headache, unspecified (principal); I95.1 Orthostatic hypotension; Z11.52 Encounter for screening for COVID-19; Z20.828 Contact with and (suspected) exposure to other viral communicable diseases
CPT/HCPCS: 0241U; 96374; 96375; 99284; 99285; J1200; J1885; J2765

== ENCOUNTER 2023-09-23 18:03 | Outpatient (REF) | payer MEDICAID, SELFPAY ==
[2023-09-24 17:34] LABS: C. trachomatis RNA TMA NOT DETECTED (NOT DETECTED); Candida glabrata RNA NOT DETECTED (NOT DETECTED); Candida species RNA NOT DETECTED (NOT DETECTED); N. gonorrhoeae RNA TMA NOT DETECTED (NOT DETECTED); Trichomonas vaginalis RNA NOT DETECTED (NOT DETECTED)
== END 2023-09-23 18:04 | disposition home or self-care (01) ==
LOC: HO.HHCLNP 18:03
PROVIDERS: Visit Provider Emergency Medicine
DX: N89.8 Other specified noninflammatory disorders of vagina (principal)
CPT/HCPCS: 36415; 81513; 87086; 87481; 87491; 87591; 87661

== ENCOUNTER 2023-10-04 14:24 | Outpatient (AMB) | payer MEDICAID, SELFPAY ==
--- NOTE | 2023-10-04 14:34 | A.OFFVIS_ITS ---
Vital Signs 3 10/04/23 14:47 Height 5 ft 4 in Weight 191 lb 6 oz BMI 32.8 BP 122/74 Blood Pressure Location Lt brachial Position Sitting Pulse 69 Intake Visit Reasons: Mass Rt upp outer br Intake Note: Patient is seen in office for evaluation of a mass of the right upper quadrant breast. Pt c/o: right breast mass, onset one year, admits to pain, no increase/decrease, has another mass on the right side of the abdomen, onset 2-3 months, texture feels weird per pt, denies discharge, redness or pain in either lump us b:10/07/21 Computer Applications Developer Required: Yes Computer Applications Developer Language: Zambian System Controller: System Controller Present Accompanied by: Daughter Allergies No Known Allergies Allergy (Mild, Verified 10/04/23 14:35) NOT APPLICABLE Medication List - Last Reconciled 10/04/23 by Jefferson Rahman MD xsmeoyo-fwqswnujwbbte-frpbnqmj 250-250-65 mg (Pain Reliever Plus) 1 tab PO Q8H PRN aqmbkappmp-bxojvsexofevz-ntmp 50-300-40 mg (Fioricet) 1 cap PO Q8H PRN ergocalciferol (vitamin D2) 1,250 mcg PO QWEEK ferrous sulfate (FeroSul) 325 mg PO Q OTHER DAY omeprazole magnesium (Prilosec OTC) 20 mg PO DAILY sennosides (senna) 8.6 mg PO DAILY HPI Comments Details: 33-year-old female patient returning to the office with a palpable mass in the right breast at the upper outer quadrant. This is at the site of a previous fat [place] along with the previous liposuction from her back. She was previously evaluated for similar lesion proximally 2 years ago and the lesion was determined to be an oil cyst. Since her last visit she denies any new symptoms in the breast and feels the lesion has remained fairly stable. She does have minimal discomfort associated with this lesion. She now also has a lump in the right abdomen in the upper outer quadrant just above the umbilicus. This does cause discomfort when palpated. She finds that the lump is on her pant line which increases the discomfort. She would like both lesions removed. [facility] Medical History Gastritis Surgical History H/O plastic surgery H/O: hysterectomy Family History Maternal Aunt Breast cancer Maternal Aunt Breast cancer Maternal Aunt Breast cancer Mother Uterine cancer Maternal Aunt Uterine cancer Social History Alcohol intake: never Patient Tobacco Use Status: Never used Tobacco Female Reproductive History Menstrual Age of Menarche: 11 Review of Systems Const All systems reviewed & are unremarkable except as noted in HPI and below Skin/Breast Reports breast pain and Reports breast mass Physical Exam Vital Signs: Last Vital Signs Pulse 69 10/04/23 14:47 BP 122/74 10/04/23 14:47 BMI result Body Mass Index 32.8 Const General: cooperative and no acute distress Nutritional Appearance: well nourished Orientation/consciousness: patient oriented x3 Limitations: no limitations HEENT Head: Yes normocephalic and Yes atraumatic Ears: hearing grossly normal bilaterally Chest Other: Right breast lesion as noted below in the upper outer quadrant. Remaining breast is normal. No enlarged lymph nodes are appreciated. Chest/axillae images: 2 1. 2 cm mass upper outer quadrant Resp Effort & Inspection: normal respiratory effort, no audible wheezes, no cough and no respiratory distress Cardio Jugular venous distension: no JVD GI Inspection: Yes normal to inspection Palpation (GI): Tenderness to palpation present (GI) in the RUQ Abdomen image: 2 1. 2 cm mass right upper quadrant, mobile within subcutaneous tissue, ? lipoma Skin Other: Warm, dry, no rash Neuro General: patient oriented x3 Extrem General: Yes no clubbing, cyanosis or edema Assessment & Plan Assessment & Plan (1) Benign breast cyst in female: Code(s): N60.09 - Solitary cyst of unspecified breast Category: Medical Qualifiers: Laterality: right Qualified Code(s): N60.01 - Solitary cyst of right breast (2) Lipoma: Code(s): D17.9 - Benign lipomatous neoplasm, unspecified Category: Medical Qualifiers: Lipoma location: trunk Qualified Code(s): D17.1 - Benign lipomatous neoplasm of skin and subcutaneous tissue of trunk Plan 33-year-old female patient presenting with a painful abdominal mass in the abdominal wall located in the right upper quadrant as well as a persistent palpable mass in the right breast at the upper outer quadrant. Patient has requested excision of both lesions and after discussion of the procedure, risks, and alternatives, she consents to excision of the right breast mass and right abdominal mass. These will be scheduled as a short-stay surgery at her earliest convenience. Coding Level of Care Code Est Pt Level 4 (09976) Diagnoses Benign cyst of right breast in female N60.01 Laterality: right Lipoma of torso D17.1 Lipoma location: trunk
[2023-10-04 14:47] VITALS: BP 122/74; PULSE 69; BMI 32.8
== END 2023-10-04 15:23 | disposition home or self-care (01) ==
PROVIDERS: Referring Provider Nurse Practitioner Primary Care; Visit Provider Surgery
DX: N60.01 Solitary cyst of right breast (principal); D17.1 Benign lipomatous neoplasm of skin and subcutaneous tissue of trunk
CPT/HCPCS: 99214

== ENCOUNTER → 2023-10-04 14:24 | Outpatient (BNVA) | payer MEDICAID, SELFPAY | PROVIDERS: Referring Provider Nurse Practitioner Primary Care; Visit Provider Surgery | DX: N60.01 Solitary cyst of right breast (principal); D17.1 Benign lipomatous neoplasm of skin and subcutaneous tissue of trunk | CPT/HCPCS: 99212 ==

== ENCOUNTER 2023-10-12 10:10 | Day surgery (SDC) | payer MEDICAID, SELFPAY ==
[2023-10-06 13:33] VITALS: BMI 32.8
--- NOTE | 2023-10-10 15:27 | P.CONAN_ITS ---
Documented by User: Elisa Grey NP 10/10/23 15:28 HPI - Anesthesia Eval Consult details Narrative: 33yo F for Right Breast Lump Mass Excision,and excision of Right abdominal Mass PMFSH Active Problems Active Problems: All Active Problems Lipoma (Acute) Benign breast cyst in female (Acute) Seroma complicating a procedure (Acute) Pelvic pain (Acute) Past Medical History Medical History Atypical chest pain GERD (gastroesophageal reflux disease) Ovarian cyst Migraine Gastritis Family History Family History Maternal Aunt Breast cancer Maternal Aunt Breast cancer Maternal Aunt Breast cancer Mother Uterine cancer Maternal Aunt Uterine cancer Surgical History Surgical History Hx of tubal ligation Hx of dilation and curettage History of esophagogastroduodenoscopy (EGD) H/O colonoscopy H/O plastic surgery H/O: hysterectomy Social History Social History Are you a primary patient care director to a significant other at home: No Do you presently have visiting nurse or other home services: No Alcohol intake: never Patient Tobacco Use Status: Never used Tobacco Use of substances other than those prescribed or required for medical reasons: No Have you been hit, kicked, punched, or otherwise hurt by someone within the past year? If so, by whom?: No Are you DNR?: No Advance Directives: No Advance Directives Information Provided: Yes Advance Directives on File: No Recently lost weight without trying: No Eating poorly because of decreased appetite: No Nutrition Risks: No Nutritional Risk Patient : No FDLMP: N/A-had hysterectomy : No Poor oral hygiene: No (one broken tooth) Meds Allergies Allergy/AdvReac Type Severity Reaction Status Date / Time No Known Allergies Allergy Mild NOT Verified 10/04/23 14:35 APPLICABLE Home Medications ?Medication ?Instructions ?Recorded ?Confirmed ?Last Taken ?Type omeprazole magnesium 20 mg 20 mg PO DAILY 08/26/20 10/12/23 10/12/23 History tablet,delayed release (Prilosec OTC) sennosides 8.6 mg capsule (senna) 8.6 mg PO DAILY 08/26/20 10/06/23 Unknown History ergocalciferol (vitamin D2) 1,250 1,250 mcg PO QWEEK 11/03/21 10/06/23 Unknown History mcg (50,000 unit) capsule xjheduh-qdmzrgjajlckq-tpyweomb 250 1 tab PO Q8H PRN headache 10/04/23 10/06/23 Unknown History mg-250 mg-65 mg tablet (Pain Reliever Plus) Exam Height,Weight and Vital Signs: Height 5 ft 4 in Weight 86.636 kg Assessment and Plan Assessment Anesthesia Assessment: Chart Reviewed Documented by User: Jaciel Heller MD 10/12/23 12:29 [facility] Past Medical History Medical History Atypical chest pain GERD (gastroesophageal reflux disease) Ovarian cyst Migraine Gastritis Family History Family History Maternal Aunt Breast cancer Maternal Aunt Breast cancer Maternal Aunt Breast cancer Mother Uterine cancer Maternal Aunt Uterine cancer Family history of problems with anesthesia: No Surgical History Surgical History Hx of tubal ligation Hx of dilation and curettage History of esophagogastroduodenoscopy (EGD) H/O colonoscopy H/O plastic surgery H/O: hysterectomy History of Problems with Anesthesia: No Social History Social History Are you a primary patient care director to a significant other at home: No Do you presently have visiting nurse or other home services: No Alcohol intake: never Patient Tobacco Use Status: Never used Tobacco Use of substances other than those prescribed or required for medical reasons: No Have you been hit, kicked, punched, or otherwise hurt by someone within the past year? If so, by whom?: No Are you DNR?: No Advance Directives: No Advance Directives Information Provided: Yes Advance Directives on File: No Recently lost weight without trying: No Eating poorly because of decreased appetite: No Nutrition Risks: No Nutritional Risk Patient : No FDLMP: N/A-had hysterectomy : No Poor oral hygiene: No (one broken tooth) Meds Allergies Allergy/AdvReac Type Severity Reaction Status Date / Time No Known Allergies Allergy Mild NOT Verified 10/04/23 14:35 APPLICABLE Home Medications ?Medication ?Instructions ?Recorded ?Confirmed ?Last Taken ?Type omeprazole magnesium 20 mg 20 mg PO DAILY 08/26/20 10/12/23 10/12/23 History tablet,delayed release (Prilosec OTC) sennosides 8.6 mg capsule (senna) 8.6 mg PO DAILY 08/26/20 10/06/23 Unknown History ergocalciferol (vitamin D2) 1,250 1,250 mcg PO QWEEK 11/03/21 10/06/23 Unknown History mcg (50,000 unit) capsule aaunxpt-arqiqyltmfqar-eyneyery 250 1 tab PO Q8H PRN headache 10/04/23 10/06/23 Unknown History mg-250 mg-65 mg tablet (Pain Reliever Plus) Exam Airway Mallampati Class: II TM Dist: >3cm Neck ROM: Full Loose/Missing/Broken Teeth: No Heart: rrr Lungs: cta Assessment and Plan Assessment Anesthesia Assessment: Anesthesia Plan Discussed Final Anesthetic Review Family History of Problems with Anesthesia: No History of Problems with Anesthesia: No NPO: Yes ASA Class: II Final Preanesthetic Review: No Changes in Pt Med Stat, Meds/Allgs Chart Reviewed, Consent Obtained/Reviewed and Anes Risks/Benef Reviewed Patient Risk: Intermediate Procedure Risk: Low Anesthetic Plan Anesthetic Plan: GA Disposition: Standard PACU
[2023-10-12] VITALS (11 sets, daily range): BP systolic 111–124; BP diastolic 62–83; PULSE 56–68; RESP 16–17; TEMP 36.2–36.6; O2SAT 94–99
[2023-10-12] MEDS: Lactated Ringers 1,000 ML 100 ML IVCONT (10:39)
--- NOTE | 2023-10-12 11:17 | MHC.SHP ---
Pre-Procedural Eval Section A - 24 Hr Update-Section A only Date of Service: 10/12/23 The patient is an INPATIENT: No Changes since office visit: Yes Patient answered all questions; No Cold of Flu in the past 2 weeks, No New Medical Problems and No Changes in Medication The patient has been examined within 24 hours of the surgical procedure. The History & Physical has been completed within 30 days and I have reviewed it.: Yes Section B - Complete if H&P > 30 days Chief Complaint: Benign lipomatous neoplasm of skin,solitary cyst Allergies: Allergies Allergy/AdvReac Type Severity Reaction Status Date / Time No Known Allergies Allergy Mild NOT Verified 10/04/23 14:35 APPLICABLE Plan Diagnosis/Plan: Unchanged I have reviewed the history and physical and performed a pertinent physical examination on my patient. No changes have occurred unless specified. Time Spent With Patient Time: Total time managing care of this patient today ____ minutes.
--- NOTE | 2023-10-12 13:25 | P.OP_ITS ---
Operative Note Operative Note Date of Service: 10/12/23 Narrative: Preoperative diagnosis: Right breast lump upper outer quadrant, right upper quadrant abdominal mass Postoperative diagnosis: Same Procedure: Excision of right breast lump upper outer quadrant, right upper quadrant abdominal mass Surgeon: Jefferson Rahman MD Help Desk Support Specialist: Lynda Poole PA-C Anesthesia: General LMA Indications for procedure: 33-year-old female patient presenting with a previous history of Plastic surgery to the right breast with a persistent hard lump located in the right breast at the upper outer quadrant. Reviewed measures approximately 2.5 cm in diameter. Previous workup were felt to be consistent with oil cyst. The patient had persistent pain associated with this lump and requested excision. In addition she has a lump in the right upper quadrant measuring approximately 2 cm by 2 cm most consistent with a lipoma. Operative findings: 2.5 cm cystic lesion of the right breast upper outer quadrant. 2 cm soft tissue mass in the right upper quadrant abdomen most consistent with a lipoma. Specimen: Right breast mass, right upper quadrant abdominal mass Estimated blood loss: 5 mL Complications: None Procedure details: Patient was brought to the OR and placed in a supine position. After administering general anesthesia the patient's abdomen and right breast were prepped with ChloraPrep and draped in a sterile fashion. A surgical time-out was called the consent confirmed. Patient received preoperative antibiotics and Venodyne boots were in place. Local anesthesia consisting of 0.5% Sensorcaine was infiltrated over the right breast lump in a transverse fashion. A curvilinear incision was then made with a scalpel and carried out through subcutaneous tissue. Superior and inferior skin flaps were then created using Metzenbaum scissors. Sharp dissection was then used to dissect around the palpable mass which was grasped with an Allis clamp. Hemostasis was assured using electrocautery. The lesion was completely excised and sent to pathology for further examination. Wounds were again checked for hemostasis and then irrigated with saline solution. Dermis was then reapproximated using interrupted 3-0 Polysorb sutures. Skin was closed using a running subcuticular 4-0 Polysorb suture. Attention was then directed to the right upper quadrant abdominal lesion. Again local anesthesia was infiltrated over the top of the lesion. A transverse incision was made with a 15 blade and carried out through subcutaneous tissue. Allis clamp was then used to grasp the mass and electrocautery used to dissect around the lesion. Hemostasis was assured using electrocautery. The lesion was excised and sent to pathology for further examination. Wounds were checked for hemostasis once again and then irrigated with saline solution. Dermis was then reapproximated using interrupted 3-0 Polysorb sutures. Skin was closed using a running subcuticular 4-0 Polysorb suture. Sterile dressings consisting of Steri-Strips, 2 x 2 gauze and Tegaderm were then applied. The patient tolerated the procedure well. Sponge, instrument, needle counts were reported as correct. The patient was transferred to PACU in stable condition.
[2023-10-12] MEDS: Ketorolac Tromethamine 30 MG/ML VIAL IVPUSH (14:43)
[2023-10-12] MEDS: Acetaminophen 325 MG TABLET 650 MG PO (14:44)
[2023-10-12] MEDS: fentaNYL citrate/PF 100 MCG/2 ML VIAL 25 MCG IVPUSH (14:48)
== END 2023-10-12 15:27 | disposition home or self-care (01) ==
PROVIDERS: PCP Nurse Practitioner Primary Care; Visit Provider Surgery
PROC: (CPT 19120; principal; 2023-10-12 11:50)
DX: D17.1 Benign lipomatous neoplasm of skin and subcutaneous tissue of trunk (principal); N60.01 Solitary cyst of right breast; N63.11 Unspecified lump in the right breast, upper outer quadrant; R19.01 Right upper quadrant abdominal swelling, mass and lump; K21.9 Gastro-esophageal reflux disease without esophagitis; Z90.710 Acquired absence of both cervix and uterus; Z79.82 Long term (current) use of aspirin; Z79.899 Other long term (current) drug therapy
CPT/HCPCS: 11406; 22902; 88304; 88307; 88341; 88342; 88360; J0690; J1100; J1885; J2250; J2405; J2704; J2765; J2795; J3010

== ENCOUNTER → 2023-10-12 10:10 | Outpatient (BNV) | payer MEDICAID, SELFPAY | PROVIDERS: PCP Nurse Practitioner Primary Care; Visit Provider Surgery | DX: D17.1 Benign lipomatous neoplasm of skin and subcutaneous tissue of trunk (principal); N60.01 Solitary cyst of right breast | CPT/HCPCS: 11406; 22902 ==

== ENCOUNTER 2023-10-18 18:40 | Outpatient (REF) | payer MEDICAID, SELFPAY ==
[2023-10-19 04:46] LABS: CT PCR NOT DETECTED (Not Detect.); NG PCR NOT DETECTED (Not Detect.)
[2023-10-19 11:12] LABS: Bacterial Vaginosis PCR NEGATIVE (Negative); Candida Group PCR DETECTED (Not Detect); Candida glab krusei PCR NOT DETECTED (Not Detect); Trichomonas vaginalis PCR NOT DETECTED (Not Detect)
== END 2023-10-18 18:41 | disposition home or self-care (01) ==
LOC: HO.HHCLNP 18:40
PROVIDERS: Visit Provider Emergency Medicine
DX: N89.8 Other specified noninflammatory disorders of vagina (principal)
CPT/HCPCS: 0352U; 0353U

== ENCOUNTER 2023-10-21 10:25 | Outpatient (AMB) | payer MEDICAID, SELFPAY ==
--- NOTE | 2023-10-21 10:12 | A.OFFVIS_ITS ---
Vital Signs 3 10/21/23 10:32 Height 5 ft 4 in Weight 185 lb BMI 31.8 BP 112/63 Blood Pressure Location Lt brachial Position Sitting Pulse 62 Intake Visit Reasons: S/P excision Rt breast mass, Rt upper abdomen mass Intake Note: Patient is seen in office for post op assessment post excision of right breast lump UOQ & RUQ abdominal mass. Patient c/o: denies any concerns Director Of Operations Support Required: Yes Director Of Operations Support Language: Inspector Rubber Stamp Die Name: Lona NEWMAN Information Interpreted: non-clinical & clinical Blast Furnace Tender: Blast Furnace Tender Present Accompanied by: Self / Same As Patient Allergies No Known Allergies Allergy (Mild, Verified 10/21/23 10:36) NOT APPLICABLE HPI Comments Details: 33-year-old female patient returning to the office with a palpable mass in the right breast at the upper outer quadrant. This is at the site of a previous [place] along with the previous liposuction from her back. She was previously evaluated for similar lesion proximally 2 years ago and the lesion was determined to be an oil cyst. Since her last visit she denies any new symptoms in the breast and feels the lesion has remained fairly stable. She does have minimal discomfort associated with this lesion. She feels the lump was causing increased discomfort and requested excision. She subsequently underwent a right breast lumpectomy along with excision of a lipoma in the right upper quadrant abdomen. Pathology revealed benign tissue without evidence of atypia or malignancy. [facility] Medical History Atypical chest pain GERD (gastroesophageal reflux disease) Ovarian cyst Migraine Gastritis Surgical History History of breast lump/mass excision (10/12/23) Hx of tubal ligation Hx of dilation and curettage History of esophagogastroduodenoscopy (EGD) H/O colonoscopy H/O plastic surgery H/O: hysterectomy Family History Maternal Aunt Breast cancer Maternal Aunt Breast cancer Maternal Aunt Breast cancer Mother Uterine cancer Maternal Aunt Uterine cancer Social History Are you a primary careers adviser to a significant other at home: No Do you presently have visiting nurse or other home services: No Alcohol intake: never Patient Tobacco Use Status: Never used Tobacco Female Reproductive History Menstrual Age of Menarche: 11 Physical Exam Vital Signs: Last Vital Signs Pulse 62 10/21/23 10:32 BP 112/63 10/21/23 10:32 BMI result Body Mass Index 31.8 Const General: no acute distress Nutritional Appearance: well nourished Orientation/consciousness: patient oriented x3 Limitations: no limitations Chest Other: Right breast excision site: Clean, dry, and intact without redness or discharge. No hematoma or seroma appreciated. Chest/axillae images: 2 1. Incision upper outer quadrant right breast Resp Effort & Inspection: normal respiratory effort GI Other: Right upper quadrant abdominal incision: Incision clean, dry, and intact without hematoma or seroma. Abdomen image: 2 1. Incision right upper quadrant Neuro General: patient oriented x3 Assessment & Plan Assessment & Plan (1) Lipoma: Code(s): D17.9 - Benign lipomatous neoplasm, unspecified Category: Medical Qualifiers: Lipoma location: trunk Qualified Code(s): D17.1 - Benign lipomatous neoplasm of skin and subcutaneous tissue of trunk (2) Benign breast cyst in female: Code(s): N60.09 - Solitary cyst of unspecified breast Category: Medical Qualifiers: Laterality: right Qualified Code(s): N60.01 - Solitary cyst of right breast Plan Patient returns 1 week following excision of a right breast cyst and right upper quadrant abdominal lipoma. She tolerated the procedure well the wounds are healing nicely. She may resume normal activity without restrictions and should follow up as needed. Coding Level of Care Code Global (85026) Diagnoses Lipoma of torso D17.1 Lipoma location: trunk Benign cyst of right breast in female N60.01 Laterality: right
[2023-10-21 10:32] VITALS: BP 112/63; PULSE 62; BMI 31.8
== END 2023-10-21 10:36 | disposition home or self-care (01) ==
PROVIDERS: PCP Nurse Practitioner Primary Care; Visit Provider Surgery
DX: D17.1 Benign lipomatous neoplasm of skin and subcutaneous tissue of trunk (principal); N60.01 Solitary cyst of right breast
CPT/HCPCS: 99024

== ENCOUNTER → 2023-10-21 10:25 | Outpatient (BNVA) | payer MEDICAID, SELFPAY | PROVIDERS: Visit Provider Surgery | DX: D17.1 Benign lipomatous neoplasm of skin and subcutaneous tissue of trunk (principal); N60.01 Solitary cyst of right breast | CPT/HCPCS: 99212 ==

== ENCOUNTER 2024-01-05 16:16 | Outpatient (REF) | payer MEDICAID, SELFPAY | END 2024-01-05 16:17 | disposition home or self-care (01) | LOC: HO.HHCLNP 16:16 | PROVIDERS: Visit Provider Family Medicine | DX: R30.0 Dysuria (principal); R82.79 Other abnormal findings on microbiological examination of urine | CPT/HCPCS: 87086; 87088; 87186 ==

== ENCOUNTER 2024-07-19 15:26 | Outpatient (REF) | payer MEDICAID, SELFPAY ==
[2024-07-19 16:10] LABS: MANUAL DIFF FLAG NO
[2024-07-19 16:18] LABS: Basophils Absolute Auto 0.1 X10*3/uL (0.0-0.2); Basophils Percent Auto 1.1 % (0-2); Eosinophils Absolute Auto 0.3 X10*3/uL (0.0-0.4); Eosinophils Percent Auto 4.9 % (0-4); Hematocrit 38.4 % (37.0-47.0); Hemoglobin 13.4 g/dl (12.0-16.0); Imm Gran Abs Auto 0.01 X10*3/uL (0.00-0.03); Imm Gran Pct Auto 0.2 % (0.0-0.4); Lymphocytes Percent Auto 35.6 % (20-40); Mean Corpuscular HGB Conc 34.9 g/dl (31.0-35.0); Mean Corpuscular Hemoglobin 29.9 pg (27.0-33.0); Mean Corpuscular Volume 85.7 fL (80.0-98.0); Mean Platelet Volume 9.6 fL (9.4-12.3); Monocytes Absolute Auto 0.4 X10*3/uL (0.1-1.2); Monocytes Percent Auto 7.4 % (2-11); Neutrophils Absolute Auto 2.9 x10*3/uL (2.0-8.3); Neutrophils Percent Auto 50.8 % (45-73); Platelet Count 278 X10*3/uL (160-400); Red Blood Count 4.48 X10*6/uL (4.20-5.50); Red Cell Distribution Width 12.7 % (11.0-16.0); White Blood Count 5.7 X10*3/uL (4.8-10.8)
[2024-07-19 16:34] LABS: Iron 130 mcg/dL (30-160); Percent Iron Saturation 43 % (15-50); Total Iron Binding Capacity 300 mcg/dL (228-428); Unsaturated Iron Binding 170 ug/dL
--- OUTSIDE RECORDS SUMMARY | 2024-07-19 18:46 | XMS_ITS | Encounter Summary ---
Author Organization [employer] [facility] Address [address] [place] [address] 7[address] [place] [address] Care Team Providers Care Project Coordinator Rn Name Role Phone Soha Aguilera Primary Care Provider [phone] Encounter Details Date Type Department Care Team (Late st Contact Info) Description 06/11/2022 Orders Only [facility] MEDICINE [address] [place] [phone] Mary Ellen Ordaz LPN Social History Tobacco Use Types Packs/Day Years Used Date Smoking Tobacco: Never Assessed Comments Unknown Sex and Gender Information Value Date Recorded Sex Assigned at Female 03/22/2022 10:19 AM EDT Legal Sex Female 10:19 AM EDT Gender Identity Female 03/22/2022 10:19 AM EDT Sexual Orientation Straight 03/22/2022 10 :19 AM EDT documented as of this encounter Plan of Treatment Upcoming Encounters Date Type Department Care Team (Late st Contact Info) Description 10/18/2024 9:15 AM EDT Office Visit [facility] MEDICINE [address] [place] [address] Soha Aguilera ANP [address] [place] [address] documented as of this encounter Visit Diagnoses Not on filedocumented in this encounter Care Teams Project Coordinator Rn Relationship Specialty Start Date End Date Soha Aguilera ANP [address] [place] [phone] PCP - General Family Medicine 11/08/19 documented as of this encounter
--- OUTSIDE RECORDS SUMMARY | 2024-07-19 18:46 | XMS_ITS | Encounter Summary ---
Author Organization [employer] Address [address] [facility] 7 [place] [address] Care Team Providers Care Hat Finishing Materials Preparer Name Role Phone Soha Aguilera Primary Care Provider Reason for Visit * Reason Onset Date Comments Appointment Request 04/05/2023 Encounter Details Date Type Department Care Team ([facility] st Contact Info) Description 04/05/2023 Telephone [facility] MEDICINE [address] [place], [place] [phone] Soha Aguilera ANP [address] [place] [address] Appointment Request Social History Tobacco Use Types Packs/Day Years Used Date Smoking Tobacco: Never Passive Smoke Exposure: Never Smokeless Tobacco: Never Alcohol Use Standard Drinks/Week Comments Yes 0 (1 standard drink = 0.6 oz pur e alcohol) Occasionnally Housing Stability Answer Date Recorded What is your housing situation today? I have marisabel bradshaw 03/21/[address] you li ve. Do you have problems with any of the following? None of the above 03/21/2023 Food Insecurity Answer Date Recorded Within the past 12 months, y ou worried that your food would run out before you got money to buy more: Never True 03/21/2023 Within the past 12 months,th e food you bought just didn't last and you didn't have enough money to get more: Never True Transportation Answer Date Recorded In the past 12 months, has l ack of transportation kept you from medical appts, meetings, work or from getting things needed for daily living? No 03/21/2023 Utilities Answer Date Recorded In the past 12 months, has t he electric, gas, oil or water company threatened to shut off services in your home? No 03/21/2023 Depression Answer Date Recorded Patient Health Questionnaire-2 Score 0 06/24/2022 Comments No Sex and Gender Information Value Date Recorded Sex Assigned at Female 03/22/2022 10:19 AM EDT Legal Sex Female 10:19 AM EDT Gender Identity Female 03/22/2022 10:19 AM EDT Sexual Orientation Straight 03/22/2022 10 :19 AM EDT documented as of this encounter Miscellaneous Notes * Telephone Encounter - Cathleen Oswald - 04/05/2023 10:38 AM EST Tc from pt requesting PE appt. Last visit with PCP Willy 10/08/2022 Instructions Follow up in about 6 months (around 04/10/2023) for Physical. documented in this encounter Plan of Treatment Upcoming Encounters Date Type Department Care Team (Late st Contact Info) Description 10/18/2024 9:15 AM EDT Office Visit [facility] MEDICINE [address] [place] [address] Soha Aguilera ANP [address] [place] [address] documented as of this encounter Visit Diagnoses Not on filedocumented in this encounter Care Teams Hat Finishing Materials Preparer Relationship Specialty Start Date End Date Soha Aguilera ANP [address] [place] [address] PCP - General Family Medicine 11/08/19 documented as of this encounter
--- OUTSIDE RECORDS SUMMARY | 2024-07-19 18:46 | XMS_ITS | Encounter Summary ---
Author Organization [employer] Address [address] [facility] 7t [place] [address] Care Team Providers Care Master Control Operator Name Role Phone Soha Aguilera Primary Care Provider [phone] Reason for Visit * Reason Onset Date Comments [facility] 08/31/2023 Encounter Details Date Type Department Care Team ([facility] st Contact Info) Description 08/31/2023 Telephone [facility] MEDICINE [address] [place], [place] [phone] Soha Aguilera ANP [address] [place] [address] [facility] Social History Tobacco Use Types Packs/Day Years [...] encounter Miscellaneous Notes * Telephone Encounter - Beti Martinez RN - 09/01/2023 10:21 AM EDT Walk in from Jorge Rodriguez [employer] Plans Intelligence Officer with [facility] [phone] stating order for US ABD complete needs to be changed to US soft tissue abdominal wall. Advised will forward request to ordering provider. * Telephone Encounter - Cathleen Oswald - 08/31/2023 9:58 AM EDT [facility] requesting correction on order instead of US Abdomen Complete shouldsay US Soft Tissue Abdominal Wall documented in this encounter Plan of Treatment Upcoming Encounters Date Type Department Care Team (Late st Contact Info) Description 10/18/2024 9:15 AM EDT Office Visit [facility] MEDICINE [address] [place] [address] Soha Aguilera ANP [address] [place] [address] documented as of this encounter Visit Diagnoses Not on filedocumented in this encounter Care Teams Master Control Operator Relationship Specialty Start Date End Date Soha Aguilera ANP [address] [place] [address] PCP - General Family Medicine 11/08/19 documented as of this encounter
--- OUTSIDE RECORDS SUMMARY | 2024-07-19 18:46 | XMS_ITS | Encounter Summary ---
Author Organization [employer] Address [address] [facility] 7t [place] [address] Care Team Providers Care Electronics Manufacturer Name Role Phone Willy Soha DOWNEY Primary Care Provider [phone] Reason for Visit * Reason Comments Sore Throat Encounter Details Date Type Department Care Team ([facility] st Contact Info) Description 07/03/2024 10:00 AM EST Office Visit [facility] [address] [place] [address] [phone] Carla Ceballos MD [address] [place] [address] Strep pharyngitis (Primary Dx); Sore throat Social History Tobacco Use Types Packs/Day Years Used Date Smoking Tobacco: Never Passive Smoke Exposure: Never Smokeless Tobacco: Never Tobacco Cessation:Counseling Given: Not Answered Alcohol Use Standard Drinks/Week Comments Yes 0 (1 standard drink = 0.6 oz pur e alcohol) Occasionnally Depression Answer Date Recorded Patient Health Questionnaire-9 Score 19 03/13/2024 Patient Health Questionnaire-9 Score 19 03/13/2024 Last PHQ-9: Questionnaire Data Not on file 1 Housing Stability Answer Date Recorded What is your housing situation today? I have marisabel bradshaw 03/13/[address] you li ve. Do you have problems with any of the following? None of the above 03/13/2024 Food Insecurity Answer Date Recorded Within the past 12 months, y ou worried that your food would run out before you got money to buy more: Sometimes True 2023 Within the past 12 months,th e food you bought just didn't last and you didn't have enough money to get more: Sometimes True 03/13/2024 Transportation Answer Date Recorded In the past 12 months, has l ack of transportation kept you from medical appts, meetings, work or from getting things needed for daily living? No 03/13/2024 Utilities Answer Date Recorded In the past 12 months, has t he electric, gas, oil or water company threatened to shut off services in your home? No 03/13/2024 Depression Answer Date Recorded Patient Health Questionnaire-2 Score 5 03/13/2024 Internet Access Answer Date Recorded Internet Access Q1 Yes 03/13/2024 Internet Access Q2 Not on file 03/13/2024 Comments No Sex and Gender Information Value Date Recorded Sex Assigned at Female 03/22/2022 10:19 AM EDT Legal Sex Female 10:19 AM EDT Gender Identity Female 03/22/2022 10:19 AM EDT Sexual Orientation Straight 03/22/2022 10 :19 AM EDT documented as of this encounter Last Filed Vital Signs Vital Sign Reading Time Taken Comments Blood Pressure 126/86 07/03/2024 10:13 AM EST Pulse 65 07/03/2024 10:13 AM EST Temperature 36.7 ??C (98 ??F) 07/03/2024 10:13 AM EST Respiratory Rate 16 07/03/2024 10:13 AM EST Oxygen Saturation 97% 07/03/2024 10:13 AM EST Inhaled Oxygen Concentration - - Weight 82.1 kg (181 lb) 07/03/2024 10:13 AM EST Height 162.6 cm (5' 4 ) 07/03/2024 10:13 AM EST Body Mass Index 31.07 07/03/2024 10:13 AM EST documented in this encounter Progress Notes * Carla Ceballos MD - 07/03/2024 10:00 AM EST Subjective History was provided by the patient. Nancy Friend is a 34 y.o. female with past medical history of migraine who presents for evaluation of symptoms of a URI. Symptoms include sore throat. Onset of symptoms was 3 days ago, unchanged since that time. Associated negative symptoms include cough, fever, runny nose, vomiting, and diarrhea. Evaluation to date: none. Treatment to date: none Objective Vitals: 07/03/24 1013 BP: 126/86 BP Location: Left arm Patient Position: Sitting BP Cuff Size: Adult Pulse: 65 Resp: 16 Temp: 98 ??F (36.7 ??C) TempSrc: Oral SpO2: 97% Weight: 181 lb (82.1 kg) Height: 5' 4 (1.626 m) Physical Exam Constitutional: Appearance: Normal appearance. HENT: Right Ear: Tympanic membrane normal. Left Ear: Tympanic membrane normal. Nose: No congestion or rhinorrhea. Mouth/Throat: Pharynx: Oropharynx is clear. No oropharyngeal exudate. Comments: Mild erythema, midline uvula, no exudate Eyes: Conjunctiva/sclera: Conjunctivae normal. Cardiovascular: Rate and Rhythm: Normal rate and regular rhythm. Heart sounds: Normal heart sounds. Pulmonary: Effort: Pulmonary effort is normal. Breath sounds: Normal breath sounds. Musculoskeletal: Cervical back: Normal range of motion. No rigidity or tenderness. Lymphadenopathy: Cervical: Cervical adenopathy present. Neurological: Mental Status: She is alert. Psychiatric: Behavior: Behavior normal. Office Visit on 07/03/2024 Component Date Value Ref Range Status Influenza B 07/03/2024 Negative Negative, Indeterminate Final Influenza A 07/03/2024 Negative Negative, Indeterminate Final Rapid COVID Ag 07/03/2024 Negative Final Rapid Strep A Screen 07/03/2024 Positive (A) Negative, None Detected Final Problem List Items Addressed This Visit Strep pharyngitis - Primary -rapid strep positive -amoxicillin 500mg bid for 10 days -droplet precautions discussed -supportive care discussed -ER precautions given Other Visit Diagnoses Sore throat Relevant Orders Influenza B (ID NOW Rapid Molecular) (Completed) Influenza A (ID NOW Rapid Molecular) (Completed) POCT Rapid COVID Ag (Completed) POCT rapid strep A manually resulted (Completed) -No evidence of respiratory distress. Symptoms mild. -No evidence of dehydration. -Supportive care advised. -Isolation recommendations discussed. -ER precautions discussed. -Seek medical attention for worsening symptoms. - note for work given for 3 days, if pt needs more, instructed to call and we can extend note. documented in this encounter Miscellaneous Notes * Assessment & Plan Note - Carla Ceballos MD - 07/03/2024 10:29 AM EST Associated Problem(s): Strep pharyngitis -rapid strep positive -amoxicillin 500mg bid for 10 days -droplet precautions discussed -supportive care discussed -ER precautions given documented in this encounter Plan of Treatment Upcoming Encounters Date Type Department Care Team (Late st Contact Info) Description 10/18/2024 9:15 AM EDT Office Visit [facility] MEDICINE [address] [place] [address] Soha Aguilera, ANP [address] [place] [address] documented as of this encounter Procedures Procedure Name Priority Date/Time Associated Diagnosis Comments POCT INFLUENZA B (ID NOW RAPID MOLECULAR) Routine 07/03/2024 10:28 AM EST Sore throat POCT INFLUENZA A (ID NOW RAPID MOLECULAR) Routine 07/03/2024 10:28 AM EST Sore throat POCT RAPID COVID ANTIGEN Routine 07/03/2024 10:28 AM EST Sore throat POCT RAPID STREP A Routine 07/03/2024 10 :28 AM EST Sore throat documented in this encounter Results * (ABNORMAL) POCT rapid strep A manually resulted (07/03/2024 10:28 AM EST) Rapid Strep A Screen Positive( A) Negative, None Detected Swab 07/03/2024 10:2 8 AM EST Carla Ceballos MD POINT OF CARE TEST ENTER/E DIT ORDERABLES Final Result * POCT Rapid COVID Ag (07/03/2024 10:28 AM EST) Rapid COVID Ag Negative Swab 07/03/2024 10:2 8 AM EST Carla Ceballos MD POINT OF CARE TEST ENTER/E DIT ORDERABLES Final Result * Influenza A (ID NOW Rapid Molecular) (07/03/2024 10:28 AM EST) Influenza A Negative Negative, Indeterminate [facility] Swab 07/03/2024 10:2 8 AM EST Carla Ceballos MD POINT OF CARE TEST ENTER/E DIT ORDERABLES Final Result Performing Organization Address City/[facility]/ZIP Co de Phone Number [facility] [address] [place] [phone] * Influenza B (ID NOW Rapid Molecular) (07/03/2024 10:28 AM EST) Influenza B Negative Negative, Indeterminate [facility] Swab 07/03/2024 10:2 8 AM EST Carla Ceballos MD POINT OF CARE TEST ENTER/E DIT ORDERABLES Final Result Performing Organization Address [facility] Co de Phone Number [facility] [address] [place] [phone] documented in this encounter Visit Diagnoses Diagnosis Strep pharyngitis- Primary Sore throat Acute pharyngitis documented in this encounter Additional Health Concerns Assessment Noted Time PHQ-9 Depression Total Score: 19 024 10:19 AM EDT documented as of this encounter Care Teams Electronics Manufacturer Relationship Specialty Start Date End Date Soha Aguilera ANP [address] [place] [phone] PCP - General Family Medicine 11/08/19 documented as of this encounter
--- OUTSIDE RECORDS SUMMARY | 2024-07-19 18:46 | XMS_ITS | Encounter Summary ---
Author Organization [employer] Address [address] [place] [address] [address], [place] [address] Care Team Providers Care Semiconductor Wafers Tester Name Role Phone Soha Aguilera Primary Care Provider [phone] Reason for Visit * Reason Comments Pre-visit Planning SDOH screening was c ompleted on 06/14/2024 Encounter Details Date Type Department Care Team ([facility] Contact Info) Description 07/06/2024 Patient Outreach [facility] MEDICINE [address] [place], [place] [phone] Soha Aguilera ANP [address] [place] [address] Pre-visit Planning (SDOH screening was completed on 06/14/2024) Social History Tobacco Use Types Packs/Day Years [...] AM EDT documented as of this encounter Progress Notes * Magali Edge - 07/06/2024 10:44 AM EST MARIO Bach placed successful outbound call to patient for pre-visit planning. Patient name and confirmed. Patient confirms appt date and time, and has transportation arrangements. Biggest concern for appointment at this time is no concerns. Patient advised to bring to appointment a photo id and insurance card. Appropriate screenings completed in anticipation of appointment. documented in this encounter Plan of Treatment Upcoming Encounters Date Type Department Care Team (Late st Contact Info) Description 10/18/2024 9:15 AM EDT Office Visit [facility] MEDICINE [address] [place] [address] Soha Aguilera ANP [address] [place] [address] documented as of this encounter Visit Diagnoses Not on filedocumented in this encounter Additional Health Concerns Assessment Noted Time PHQ-9 Depression Total Score: 19 024 10:19 AM EDT documented as of this encounter Care Teams Semiconductor Wafers Tester Relationship Specialty Start Date End Date Soha Aguilera ANP [address] [place] [address] PCP - General Family Medicine 11/08/19 documented as of this encounter
--- OUTSIDE RECORDS SUMMARY | 2024-07-19 18:46 | XMS_ITS | Encounter Summary ---
Author Organization [employer] Address [address] [facility] 7t [place] [address] Care Team Providers Care Metal Sprayer Protective Coating Name Role Phone WillySoha Primary Care Provider [phone] Reason for Visit * Reason Onset Date Comments chart prep 06/27/2024 Encounter Details Date Type Department Care Team ([facility] st Contact Info) Description 06/27/2024 Telephone [facility] MEDICINE [address] [place] [address] Cherelle Rios MA chart prep Social History Tobacco Use Types Packs/Day Years [...] encounter Miscellaneous Notes * Telephone Encounter - Cherelle Rios MA - 06/27/2024 1:42 PM EST Chart Prep Labs: done Images: ordered 09/02/23 Vaccines due: yes Referrals: 10/05/23 Screenings: none Overdue care gaps: Sbirt, PHQ-9 documented in this encounter Plan of Treatment Upcoming Encounters Date Type Department Care Team (Late st Contact Info) Description 10/18/2024 9:15 AM EDT Office Visit [facility] MEDICINE [address] [place] [address] Soha Aguilera ANP [address] [place] [address] documented as of this encounter Visit Diagnoses Not on filedocumented in this encounter Additional Health Concerns Assessment Noted Time PHQ-9 Depression Total Score: 19 024 10:19 AM EDT documented as of this encounter Care Teams Metal Sprayer Protective Coating Relationship Specialty Start Date End Date Soha Aguilera ANP [address] [place] [address] PCP - General Family Medicine 11/08/19 documented as of this encounter
--- OUTSIDE RECORDS SUMMARY | 2024-07-19 18:46 | XMS_ITS | Encounter Summary ---
Author Organization [employer] Address [address] [facility] 7 [place] [address] Care Team Providers Care Steelscope Operator Name Role Phone Soha Aguilera Primary Care Provider [phone] Reason for Visit * Reason Onset Date Comments Chart Prep 07/16/2024 Encounter Details Date Type Department Care Team ([facility] st Contact Info) Description 07/16/2024 Telephone [facility] MEDICINE [address] [place], [place] [phone] Soha Aguilera ANP [address] [place] [address] Chart Prep Social History Tobacco Use Types Packs/Day Years [...] encounter Miscellaneous Notes * Telephone Encounter - Ami Marinelli MA - 07/16/2024 3:43 PM EST Chart Prep Labs: not applicable Images: not applicable Vaccines due: Covid Due Referrals: General Surgery Completed Screenings: Not Applicable Overdue care gaps: Sbirt and PHQ-9 documented in this encounter Plan of Treatment Upcoming Encounters Date Type Department Care Team (Late st Contact Info) Description 10/18/2024 9:15 AM EDT Office Visit [facility] MEDICINE [address] [place] [address] Soha Aguilera ANP [address] [place] [address] documented as of this encounter Visit Diagnoses Not on filedocumented in this encounter Additional Health Concerns Assessment Noted Time PHQ-9 Depression Total Score: 19 024 10:19 AM EDT documented as of this encounter Care Teams Steelscope Operator Relationship Specialty Start Date End Date Soha Aguilera ANP [address] [place] [address] PCP - General Family Medicine 11/08/19 documented as of this encounter
--- OUTSIDE RECORDS SUMMARY | 2024-07-19 18:46 | XMS_ITS | Encounter Summary ---
Author Organization [email or web address] Address [address] [facility] 7t [place] [address] Care Team Providers Care Human Resource Internship Name Role Phone Willy Soha DOWNEY Primary Care Provider [phone] Encounter Details Date Type Department Care Team (Latest Contact Info) Description 07/19/2024 Travel Social History Tobacco Use Types Packs/Day Years Used Date Smoking Tobacco: Never Passive Smoke Exposure: Never Smokeless Tobacco: Never Alcohol Use Standard Drinks/Week Comments Yes 0 (1 standard drink = 0.6 oz pur e alcohol) Occasionnally Depression Answer Date Recorded Patient Health Questionnaire-9 Score 16 07/19/2024 Patient Health Questionnaire-9 Score 16 07/19/2024 Last PHQ-9: Questionnaire Data Not on file 0 07/19/2024 Housing Stability Answer Date Recorded What is [...] Answer Date Recorded Patient Health Questionnaire-2 Score 3 07/19/2024 Internet Access Answer Date Recorded Internet Access [...] Description 10/18/2024 9:15 AM EDT Office Visit [facility] MEDICINE [address] [place] [address] Soha Aguilera ANP [address] [place] [address] documented as of this encounter Visit Diagnoses Not on filedocumented in this encounter Additional Health Concerns Assessment Noted Time PHQ-9 Depression Total Score: 16 025 3:25 PM EST documented as of this encounter Care Teams Human Resource Internship Relationship Specialty Start Date End Date Soha Aguilera ANP [address] [place] [address] PCP - General Family Medicine 11/08/19 documented as of this encounter
--- OUTSIDE RECORDS SUMMARY | 2024-07-19 18:46 | XMS_ITS | Encounter Summary ---
Author Organization [employer] Address [address] [facility] 7t [place] [address] Care Team Providers Care Tester Operator Name Role Phone Soha Aguilera Primary Care Provider [phone] Reason for Referral * Imaging (Routine) - Closed Specialty Diagnoses / Procedures Referred By Contashley t Referred To Contact Radiology Diagnoses Abdominal wall mass Procedures US ABDOMINAL WALL, SOFT TISSUE RIGHT Ana Laura Montelongo FNP [address] [place] [address] Phone: tel: fax: [facility] [address] [facility], [address] [place] [address] Phone: tel: fax: Referral ID Status Reason Start Date Expiration Date Visits Re quested Visits Authorized [id number] Closed 09/02/2023 09/01/2024 1 1 Encounter Details Date Type Department Care Team (Late st Contact Info) Description 09/02/2023 Orders Only [facility] [address] [place], [place] [phone] Ana Laura Montelongo FNP [address] [place], [place] [phone] Abdominal wall mass (Primary Dx) Social History Tobacco Use Types Packs/Day Years [...] Description 10/18/2024 9:15 AM EDT Office Visit [facility] MEDICINE [address] [place] [address] Soha Aguilera ANP [address] [place] [address] Scheduled Orders Name Type Priority Associated Diagnoses Orde r Schedule US ABDOMINAL WALL, SOFT TISSUE RIGHT Imaging Routine Abdominal wall mass Expected: 09/02/2023, Expires: 09/01/2024 documented as of this encounter Visit Diagnoses Diagnosis Abdominal wall mass- Primary Abdominal or pelvic swelling, mass or lump, unspecified site documented in this encounter Care Teams Tester Operator Relationship Specialty Start Date End Date Soha Aguilera ANP [address] [place] [address] PCP - General Family Medicine 11/08/19 documented as of this encounter
--- OUTSIDE RECORDS SUMMARY | 2024-07-19 18:46 | XMS_ITS | Encounter Summary ---
Author Organization [employer] Address [address] [place] [address] 7 [place] [address] Care Team Providers Care Grinder Set Up Operator Jig Name Role Phone Soha Aguilera Primary Care Provider [phone] Reason for Visit * Reason Comments CHW - Office Visit Encounter Details Date Type Department Care Team ([facility] st Contact Info) Description 07/19/2024 2:15 PM EST Office Visit [facility] MEDICINE [address] [place], [place] [phone] Soha Aguilera ANP [address] [place] [address] History of pneumonia (Primary Dx); Shortness of breath; Seborrheic dermatitis of scalp; Easy bruising Social History Tobacco Use Types Packs/Day Years [...] Sign Reading Time Taken Comments Blood Pressure 126/74 07/19/2024 2:49 PM EST Pulse 59 07/19/2024 2:49 PM EST Temperature 36.6 ??C (97.9 ??F) 07/19/2024 2:49 PM ES T Respiratory Rate 14 07/19/2024 2:49 PM EST Oxygen Saturation 99% 07/19/2024 2:49 PM EST Inhaled Oxygen Concentration - - Weight 82.6 kg (182 lb 3.2 oz) 07/19/2024 2:49 P M EST Height - - Body Mass Index 31.27 07/03/2024 10:13 AM EST documented in this encounter Plan of Treatment Upcoming Encounters Date Type Department Care Team (Late st Contact Info) Description 10/18/2024 9:15 AM EDT Office Visit [facility] MEDICINE [address] [place], [place] [phone] Soha Aguilera ANP [address] [place] [address] Scheduled Orders Name Type Priority Associated Diagnoses Orde r Schedule XR Chest 2 Views Imaging Routine History of pneumonia Shortness of breath Expected: 07/19/2024, Expires: 07/19/2025 documented as of this encounter Procedures Procedure Name Priority Date/Time Associated Diagnosis Comments CBC WITH AUTO DIFFERENTIAL Routine 07/19/2024 3:28 PM EST Shortness of breath Easy bruising IRON AND TOTAL IRON BINDING CAPACITY Routine 07/19/2024 3:28 PM EST Easy bruising documented in this encounter Results * Iron And Total Iron Binding Capacity (07/19/2024 3:28 PM EST) [facility] Iron 130 30 - 160 mcg/dL [facility] Total Iron Binding Capacity 300 228 - 428 mcg/dL [facility] Percent Iron Saturation 43 15 - 50 % [facility] Unsaturated Iron Binding 170 ug/dL [facility] Blood Venous blood specimen / Unknown 07/19/2024 3:28 PM EST 07/19/2024 4:04 PM EST [facility] LAB BLOOD ORDERABLES Final Resul t [facility] [address] [place] [phone] * (ABNORMAL) CBC auto differential (07/19/2024 3:28 PM EST) [facility] White Blood Count 5.7 4.8 - 10.8 X10*3/uL [facility] Red Blood Count 4.48 4.20 - 5.50 X10*6/uL [facility] Hemoglobin 13.4 12.0 - 16.0 g/dl [facility] Hematocrit 38.4 37.0 - 47.0 % [facility] Mean Corpuscular Volume 85.7 80.0 - 98.0 fL [facility] Mean Corpuscular Hemoglobin 29.9 27.0 - 33.0 pg [facility] Mean Corpuscular HGB Conc 34.9 31.0 - 35.0 g/dl [facility] Red Cell Distribution Width 12.7 11.0 - 16.0 % [facility] Platelet Count 278 160 - 400 X10*3/uL [facility] Mean Platelet Volume 9.6 9.4 - 12.3 fL [facility] Neutrophils Percent Auto 50.8 45 - 73 % [facility] Imm Gran Pct Auto 0.2 0.0 - 0.4 % [facility] Lymphocytes Percent Auto 35.6 20 - 40 % [facility] Monocytes Percent Auto 7.4 2 - 11 % [facility] Eosinophils Percent Auto 4.9(H) 0 - 4 % [facility] Basophils Percent Auto 1.1 0 - 2 % [facility] NRBC Pct Auto 0.0 0.0 - 0.2 /100WBC [facility] Neutrophils Absolute Auto 2.9 2.0 - 8.3 x10*3/uL [facility] Imm Gran Abs Auto 0.01 0.00 - 0.03 X10*3/uL [facility] Lymphocytes Absolute Auto 2.0 1.2 - 4.9 X10*3/uL [facility] Monocytes Absolute Auto 0.4 0.1 - 1.2 X10*3/uL [facility] Eosinophils Absolute Auto 0.3 0.0 - 0.4 X10*3/uL [facility] Basophils Absolute Auto 0.1 0.0 - 0.2 X10*3/uL [facility] NRBC Abs Auto 0.000 0.0 - 0.012 X10*3/uL [facility] Blood Venous blood specimen / Unknown 07/19/2024 3:28 PM EST 07/19/2024 4:04 PM EST Soha Aguilera [facility] LAB BLOOD ORDERABLES Final Resul t [facility] [address] [place] [address] [phone] documented in this encounter Visit Diagnoses Diagnosis History of pneumonia- Primary Personal history of pneumonia (recurrent) Shortness of breath Seborrheic dermatitis of scalp Other seborrheic dermatitis Easy bruising Other symptoms involving skin and integumentary tissues documented in this encounter Additional Health Concerns Assessment Noted Time PHQ-9 Depression Total Score: 16 07/19/ 025 3:25 PM EST documented as of this encounter Care Teams Grinder Set Up Operator Jig Relationship Specialty Start Date End Date Soha Aguilera ANP [address] [place] [address] PCP - General Family Medicine 11/08/19 documented as of this encounter
--- OUTSIDE RECORDS SUMMARY | 2024-07-19 18:46 | XMS_ITS | Encounter Summary ---
Author Organization [employer] Address [address] [facility] 7t [place] [address] Care Team Providers Care Extrusion Line Operator Name Role Phone Soha Aguilera Primary Care Provider [phone] Reason for Visit * Reason Onset Date Comments Results 09/26/2023 Encounter Details Date Type Department Care Team ([facility] st Contact Info) Description 09/26/2023 Telephone [facility] MEDICINE [address] [place], [place] [phone] Soha Aguilera ANP [address] [place] [address] Results Social History Tobacco Use Types Packs/Day Years [...] encounter Miscellaneous Notes * Telephone Encounter - Naomie Jimenes RN - 09/26/2023 12:56 PM EDT Please review and advise for below US result. Result is in pt.'s chart. * Telephone Encounter - Michael Xiao - 09/26/2023 12:39 PM EDT TC from pt who called [facility] . They state results were sent 09/22 and sent again this am . * Telephone Encounter - Shiraz Cardenas - 09/26/2023 10:57 AM EDT TC from pt requesting call back regarding Results. Type of results: Sonogram Date when done: 09/01 Facility: [facility] documented in this encounter Plan of Treatment Upcoming Encounters Date Type Department Care Team (Late st Contact Info) Description 10/18/2024 9:15 AM EDT Office Visit [facility] MEDICINE [address] [place] [address] Soha Aguilera ANP [address] [place] [address] documented as of this encounter Visit Diagnoses Not on filedocumented in this encounter Care Teams Extrusion Line Operator Relationship Specialty Start Date End Date Soha Aguilera ANP [address] [place] [address] PCP - General Family Medicine 11/08/19 documented as of this encounter
--- OUTSIDE RECORDS SUMMARY | 2024-07-19 18:46 | XMS_ITS | Clinical Summary ---
Author Organization [employer] Address [address] [place] [address] [address] [place] [address] Care Team Providers Care Torch Solderer Name Role Phone Willy Soha DOWNEY Primary Care Provider [phone] Allergies No known active allergies Medications * This document contains information received from the source organization and may not represent a complete record from that organization. acetaminophen (Tylenol 8 Hour) 650 MG ER tablet Take 1 tablet by mouth in the morning and 1 tablet at noon and 1 tablet in the evening. 04/25/20 19 Active docusate sodium (Colace) 100 MG capsule Take 1 capsule by mouth at bed time. Active ergocalciferol (Vitamin D-2) 1.25 MG (52488 UT) capsule take 1 capsule (73736HHAEV) by oral route ONCE A WEEK for 8 weeks 01/31/20 21 Active ferrous sulfate 325 (65 Fe) MG tablet take 1 tablet by oral every other day 01/31/20 21 Active pantoprazole (ProtoNix) 40 MG EC tablet Take 1 tablet by mouth at bed time. Active sennosides (Senokot) 8.6 MG tablet take 2 tablet by oral route every day as needed for constipation Active Ketoconazole (Nizoral A-D) 1 % shampooIndicati ons:Scalp itch APPLY TO DAMP SCALP, LATHER, AND RINSE EVERY 3 DAYS DIRECTED 200 mL 11 03/21/20 23 Active Additional Information Patient not taking.Reported on 06/16/2023 diphenhydrAMINE (BENADryl) 25 MG capsule Take 1 capsule (25 mg) by mouth every 4 (four) hours if needed for sleep. 30 capsule 07/15/19 24 Active Additional Information Patient not taking.Reported on 05/02/2024 betamethasone valerate (Valisone) 0.1 % cream Apply topically 2 times daily. 30 g 10/18/19 24 Active baclofen (Lioresal) 10 MG tabletIndicatio ns:Acute non intractable tension-type headache TAKE 1 TABLET BY MOUTH THREE TIMES DAILY NEEDED FOR MUSCLE SPASMS (NECK) 30 tablet 1 02/14/20 24 Active aspirin-acetami nophen-caffeine (Pain Reliever Plus) 250-250-65 MG tabletIndicatio ns:Intractable migraine without aura and without status migrainosus TAKE 1 TABLET BY MOUTH EVERY 8 HOURS NEEDED FOR HEADACHE 30 tablet 1 02/14/20 24 Active budesonide-form oterol (Symbicort) 80-4.5 MCG/ACT inhalerIndicati ons:Wheezing Inhale 2 puffs every 4-6 hours as needed for cough and wheeezing 1 each 04/13/20 24 Active triamcinolone (Kenalog) 0.1 % ointmentIndicat ions:Rash APPLY TOPICALLY TO AFFECTED AREA(S) TWICE DAILY 30 g 1 06/15/19 25 Active amoxicillin (Amoxil) 500 MG capsuleIndicati ons:Strep pharyngitis Take 1 tab po bid for 10 days 20 capsule 07/03/19 25 Active Fluocinolone Acetonide Scalp 0.01 % oilIndications: Seborrheic dermatitis of scalp Apply in evening, wash off in AM, 3x/wk 118.28 mL 2 07/19/19 25 Active selenium sulfide (Selsun) 2.5 % shampooIndicati ons:Seborrheic dermatitis Use 3x/wk as shampoo 118 mL 11 06/16/19 24 025 Discontin ued(Ineff ective) Magnesium 400 MG capsuleIndicati ons:Intractable migraine without aura and without status migrainosus 1 tab once daily 90 capsule 2 10/10/19 24 025 Discontin ued(Ineff ective) amitriptyline (Elavil) 10 MG tabletIndicatio ns:Intractable migraine without aura and without status migrainosus Take 1 tablet (10 mg) by mouth at bedtime. 90 tablet 1 12/12/19 24 025 Discontin ued(Ineff ective) Active Problems Problem Noted Date Diagnosed Date Shortness of breath 07/19/2024 Strep pharyngitis 07/03/2024 Assessment & Plan (07/03/2024 10:29 AM EST): -rapid strep positive -amoxicillin 500mg bid for 10 days -droplet precautions discussed -supportive care discussed -ER precautions given Candidal vulvovaginitis 10/19/2023 Intractable migraine without aura and without status migrainosus 07/15/2023 Chronic constipation 03/16/2018 Cyst of ovary 11/02/2017 Chronic gastritis 11/02/2017 Pain in female pelvis 11/02/2017 Seborrheic dermatitis of scalp 01/21/2017 Atopic dermatitis 09/25/2012 Encounters Date Type Department Care Team Description 07/19/2024 2:15 PM EST Office Visit [facility] [address] [place] [phone] Soha Aguilera ANP History of pneumonia (Primary Dx); Shortness of breath; Seborrheic dermatitis of scalp; Easy bruising 07/19/2024 Travel 07/16/2024 Telephone [facility] [address] [place] [phone] Soha Aguilera ANP Chart Prep 07/06/2024 Patient Outreach [address] [address] Soha Aguilera ANP Pre-visit Planning (SDOH screening was completed on 06/14/2024) 07/03/2024 10:00 AM EST Office Visit [facility] [address] [place] [phone] Carla Ceballos MD Strep pharyngitis (Primary Dx); Sore throat 06/27/[address] [address] Cherelle Rios MA chart prep 06/15/2024 Refill [facility] [address] [place] [phone] Soha Aguilera ANP Rash 06/14/2024 Patient Outreach [address] [address] Soha Aguilera ANP Care Coordination ([facility] outreach for SDOH PT-1 and food needs- LVM ) 06/14/2024 Patient Outreach [facility] [address] [place] [address] Soha Aguilera ANP Pre-visit Planning (SDOH Screening positive and Tobacco screening negative) 06/12/2024 1:45 PM EST Office Visit [facility] [address] [place] [address] Sorin, Keila, OD 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) 05/14/2024 Telephone [facility] [address] [place] [address] Audrey Honeycutt [place] February recall 05/02/2024 10:00 AM EST Office Visit [facility] [address] [place] [address] Sorin, Keila, OD Lattice degeneration of left retina (Primary Dx); Regular astigmatism of both eyes 05/02/2024 Travel 04/24/2024 10:30 AM EST Office Visit [facility] [address] [place] [phone] Soha Aguilera ANP Acute cough (Primary Dx); Pneumonia of right lower lobe due to infectious organism 04/24/2024 Travel 04/24/[address] [address] Soha Aguilera ANP Nurse Triage 04/23/[address] [address] Soha Aguilera ANP ER Follow-up from Last 3 Months Immunizations Name Administration Dates Next Due DTaP 02/18/2012, 5,07/01/1993,11/10,1990,1990 HPV, Quadrivalent 09/26/2012,02/25/2009,12/26/19 09 Hep B, Adolescent or Pediatric 01/18/2006,1998,05/30/1998 Hib ([facility]) 10/10/1992,1990 IPV 12/02/1994, 3,1990,09/06 Influenza injectable quadriv alent IIV4 with preservative 04/29/2017,02/27/2015 Influenza injectable quadriv alent preservative free 06/16/2023,06/24/2022,04/13/2019,05/09 Influenza, seasonal, injecta ble, preservative free 03/13/2024 MMR 08/07/1993,10/12/1992 Meningococcal MCV4P [id number]-135 12/25/2008 Moderna Covid-19 Vaccine 12+ 10/01/2020,09/04/19 21 Moderna Covid-19 Vaccine 6+ Bivalent 06/24/2022 TD (adult), 2 Lf tetanus tox oid, preservative free, adsorbed 03/13/2024,05/29/2009 Tdap 01/18/2006 Varicella 12/25/2008,1994 Family History Medical History Relation Name Comments Asthma Brother Asthma Mother Endometrial cancer Mother Diabetes Other Heart disease Other Stroke Other Relation Name Status Comments Brother Mother Other Social History Tobacco Use Types Packs/Day Years [...] Orientation Straight 03/22/2022 10 :19 AM EDT Last Filed Vital Signs Vital Sign Reading [...] oz) 07/19/2024 2:49 P M EST Height 162.6 cm (5' 4 ) 07/03/2024 10:13 AM EST Body Mass Index 31.27 07/03/2024 10:13 AM EST Plan of Treatment Upcoming Encounters Date Type Department Care Team (Late st Contact Info) Description 10/18/2024 9:15 AM EDT Office Visit [facility] [address] [place] [address] Soha Aguilera ANP [address] [place] [address] Health Maintenance Due Date Last Done Comments Family Planning (PISQ) 2005 COVID-19 Vaccine ( season) 2024 06/24/2022, 10/01/2020, 09/03/2020 Depression Monitoring (PHQ-9) 01/16/2025 07/19/2024, 07/19/2024 SDOH Screening 06/14/2025 06/14/2024 Alcohol/Substance Use Screening 07/19/2025 07/19/2024 Depression Screening 07/19/2025 07/19/2024, 07/19/19 Tobacco Screening 07/19/2025 07/19/2024 DTaP/Tdap/Td Vaccines (10 - Td or Tdap) 03/13/2034 03/13/2024, 02/18/2012, 05/29/2009, Additional history exists Zoster Vaccines (1 of 2) 2040 RSV Patients and Patients Aged 60 years or older (1 - 1-dose 75+ series) 2065 HIB Vaccines Completed 10/10/1992, 1990 IPV Vaccines Completed 12/02/1994, 09/21, 1990, Additional history exists Hepatitis B Vaccines Completed 01/18/2006, 08/15/1998, 05/30/1998 Meningococcal Vaccine Completed 12/25/2008 HPV Vaccines Completed 09/26/2012, 10/2008, 12/25/2008 HIV Screening Completed 06/16/2023, 06/2022, 08/29/2020, Additional history exists Hepatitis C Screening Completed 06/16/2023 , 06/24/2022, 08/29/2020 Influenza Vaccine Completed 03/13/2024, , 06/24/2022, Additional history exists Hepatitis A Vaccines Aged Out No long er eligible based on patient's age to complete this topic Pneumococcal Vaccine: Pediatrics (0 to 5 Years) and At-Risk Patients (6 to 49) Years) Aged Out No longer eligible based on patient's age to complete this topic RSV under 20 months Aged Out No longe r eligible based on patient's age to complete this topic Rotavirus Vaccines Aged Out No longer eligible based on patient's age to complete this topic Procedures Procedure Name Priority Date/Time Associated Diagnosis Comments IRON AND TOTAL IRON BINDING CAPACITY Routine 07/19/2024 3:28 PM EST Easy bruising CBC WITH AUTO DIFFERENTIAL Routine 07/19/2024 3:28 PM EST Shortness of breath Easy bruising POCT RAPID STREP A Routine 07/03/2024 10 :28 AM EST Sore throat POCT RAPID COVID ANTIGEN Routine 07/03/2024 10:28 AM EST Sore throat POCT INFLUENZA A (ID NOW RAPID MOLECULAR) Routine 07/03/2024 10:28 AM EST Sore throat POCT INFLUENZA B (ID NOW RAPID MOLECULAR) Routine 07/03/2024 10:28 AM EST Sore throat HEPATITIS C AB W/REFL TO HCV RNA, QN, PCR Routine 06/16/2023 10:36 AM EST Routine screening for STI (sexually transmitted infection) HIV 1/2 ANTIGEN/ANTIBODY, FOURTH GENERATION W/RFL Routine 06/16/2023 10:36 AM EST Routine screening for STI (sexually transmitted infection) from Last 3 Months or Most Recently Relevant to Health Maintenance Results * (ABNORMAL) CBC auto differential (07/19/2024 3:28 PM EST) White Blood Count 5.7 4.8 - 10.8 X10*3/uL [facility] Red Blood Count 4.48 4.20 - 5.50 X10*6/uL [facility] Hemoglobin 13.4 12.0 - 16.0 g/dl [facility] Hematocrit 38.4 37.0 - 47.0 % [facility] Mean Corpuscular Volume 85.7 80.0 - 98.0 fL [facility] Mean Corpuscular Hemoglobin 29.9 27.0 - 33.0 pg [facility] Mean Corpuscular HGB Conc 34.9 31.0 - 35.0 g/dl [facility] Red Cell Distribution Width 12.7 11.0 - 16.0 % [facility] Platelet Count 278 160 - 400 X10*3/uL [facility] Mean Platelet Volume 9.6 9.4 - 12.3 fL [facility] Neutrophils Percent Auto 50.8 45 - 73 % [facility] Imm Gran Pct Auto 0.2 0.0 - 0.4 % [facility] Lymphocytes Percent Auto 35.6 20 - 40 % [facility] Monocytes Percent Auto 7.4 2 - 11 % [facility] Eosinophils Percent Auto 4.9(H) 0 - 4 % [facility] Basophils Percent Auto 1.1 0 - 2 % [facility] NRBC Pct Auto 0.0 0.0 - 0.2 /100WBC [facility] Neutrophils Absolute Auto 2.9 2.0 - 8.3 x10*3/uL [facility] Imm Gran Abs Auto 0.01 0.00 - 0.03 X10*3/uL [facility] Lymphocytes Absolute Auto 2.0 1.2 - 4.9 X10*3/uL [facility] Monocytes Absolute Auto 0.4 0.1 - 1.2 X10*3/uL [facility] Eosinophils Absolute Auto 0.3 0.0 - 0.4 X10*3/uL [facility] Basophils Absolute Auto 0.1 0.0 - 0.2 X10*3/uL [facility] NRBC Abs Auto 0.000 0.0 - 0.012 X10*3/uL [facility] Blood Venous blood specimen / Unknown 07/19/2024 3:28 PM EST 07/19/2024 4:04 PM EST Soha Aguilera ANP LAB BLOOD ORDERABLES Final Resul t Performing Organization Address City/[facility]/ZIP Co de Phone Number [facility] [address] [place] [phone] * Iron And Total Iron Binding Capacity (07/19/2024 3:28 PM EST) Iron 130 30 - 160 mcg/dL [facility] Total Iron Binding Capacity 300 228 - 428 mcg/dL [facility] Percent Iron Saturation 43 15 - 50 % [facility] Unsaturated Iron Binding 170 ug/dL [facility] Blood Venous blood specimen / Unknown 07/19/2024 3:28 PM EST 07/19/2024 4:04 PM EST Soha Aguilera ANP LAB BLOOD ORDERABLES Final Resul t [facility] [address] [place] [phone] * Influenza B (ID NOW Rapid Molecular) (07/03/2024 10:28 AM EST) [facility] Influenza B Negative Negative, Indeterminate [facility] Swab 07/03/2024 10:2 8 AM EST Carla Ceballos MD POINT OF CARE TEST ENTER/E DIT ORDERABLES Final Result Performing Organization Address [facility] Co de Phone Number [facility] [address] [place] [phone] * Influenza A (ID NOW Rapid Molecular) (07/03/2024 10:28 AM EST) [facility] Influenza A Negative Negative, Indeterminate [facility] Swab 07/03/2024 10:2 8 AM EST us Carla Ceballos MD POINT OF CARE TEST ENTER/E DIT ORDERABLES Final Result Performing Organization Address [facility] Co de Phone Number [facility] [address] [place] [phone] * POCT Rapid COVID Ag (07/03/2024 10:28 AM EST) [facility] Rapid COVID Ag Negative Swab 07/03/2024 10:2 8 AM EST us Carla Ceballos MD POINT OF CARE TEST ENTER/E DIT ORDERABLES Final Result * (ABNORMAL) POCT rapid strep A manually resulted (07/03/2024 10:28 AM EST) [facility] Rapid Strep A Screen Positive( A) Negative, None Detected Swab 07/03/2024 10:2 8 AM EST us Carla Ceballos MD POINT OF CARE TEST ENTER/E DIT ORDERABLES Final Result * Hepatitis C Antibody with Reflex to HCV, RNA, Quantitative, Real-Time PCR (06/16/2023 10:36 AM EST) Pathologist [facility] Hepatitis C Antibody Nonreactive Nonreactive [facility] Comment:Antibodies to HCV no t detected; does not exclude early acuteHCV infection. Blood Venous blood specimen / Unknown 06/16/2023 10:36 AM EST 06/16/2023 11:36 AM EST Soha Aguilera ANP LAB BLOOD ORDERABLES Final Resul t Performing Organization Address [facility] Co de Phone Number [facility] [address] [place] [phone] * HIV-1/2 Antigen and Antibodies, Fourth Generation, with Reflexes (06/16/2023 10:36 AM EST) Pathologist [facility] HIV AB/AG Nonreactive Nonreactive [facility] Comment:HIV-1 p24 Ag and/or HIV-1/HIV-2 Ab not detected.A test result that is nonreactive does not exclude thepossibility of exposure to or infection with HIV-1 and/orHIV-2. Nonreactive results in this assay for individualswith prior exposure to HIV-1 and/or HIV-2 may be due toantigen and antibody levels that are below the limit ofdetection of this assay.The [employer] HIV Ag/Ab Combo assay result andsupplemental assay results should be interpreted inconjunction with the patient's clinical presentation,history and other laboratory results. If the results areinconsistent with clinical evidence, additional testing issuggested to confirm the result. Blood Venous blood specimen / Unknown 06/16/2023 10:36 AM EST 06/16/2023 11:36 AM EST Soha Aguilera ANP LAB BLOOD ORDERABLES Final Resul t Performing Organization Address [facility] Co de Phone Number [facility] [address] [place] [phone] from Last 3 Months or Most Recently Relevant to Health Maintenance Insurance C3 Care Teams Torch Solderer Relationship Specialty Start Date End Date Soha Aguilera ANP [address] [place] [phone] PCP - General Family Medicine 11/08/19
== END 2024-07-19 15:27 | disposition home or self-care (01) ==
LOC: HO.HHCL 15:26
PROVIDERS: Visit Provider Nurse Practitioner Primary Care
DX: R23.3 Spontaneous ecchymoses (principal); R06.02 Shortness of breath
CPT/HCPCS: 36415; 83540; 85025

== ENCOUNTER 2024-07-23 14:10 | Outpatient (REF) | payer MEDICAID, SELFPAY ==
--- NOTE | ~2024-07-23 | XR_ITS ---
EXAMINATION: XR CHEST CLINICAL INFORMATION: h/o PNA 03/2024, ongoing SOB COMPARISON: None available. TECHNIQUE: 2 views of the chest were obtained. FINDINGS: No significant abnormality is noted involving the heart, lungs, mediastinum, bony thorax or soft tissues. XR/XR chest 2V IMPRESSION: Unremarkable chest examination. Electronically signed by: Alfred Carmona MD 07/23/2024 03:37 PM EST
--- OUTSIDE RECORDS SUMMARY | 2024-07-23 16:57 | XMS_ITS | Encounter Summary ---
Author Organization [employer] Address [address] [facility] [address] [place] [address] Care Team Providers Care Automobile Technician Name Role Phone WillySoha Primary Care Provider [phone] Reason for Visit * Reason Onset Date Comments chart prep 06/27/2024 Encounter Details Date Type Department Care Team ([facility] st Contact Info) Description 06/27/2024 Telephone [facility] [address] [place] [address] Cherelle Rios MA chart prep Social History [...] Description 10/18/2024 9:15 AM EDT Office Visit [facility] [address] [place] [phone] Soha Aguilera ANP [address] [place] [address] documented as of this encounter Visit Diagnoses Not on filedocumented in this encounter Additional Health Concerns Assessment Noted Time PHQ-9 Depression Total Score: 19 024 10:19 AM EDT documented as of this encounter Care Teams Automobile Technician Relationship Specialty Start Date End Date Soha Aguilera ANP [address] [place] [phone] PCP - General Family Medicine 11/08/19 documented as of this encounter
--- OUTSIDE RECORDS SUMMARY | 2024-07-23 16:57 | XMS_ITS | Encounter Summary ---
Author Organization [employer] Address [address] [place] [address] [place] [address] Care Team Providers Care Rock Star Name Role Phone Soha Aguilera Primary Care Provider [phone] Reason for Visit * Reason Comments Pre-visit Planning SDOH screening was c ompleted on 06/14/2024 Encounter Details Date Type Department Care Team ([facility] Contact Info) Description 07/06/[address] [facility] [address] [place], [place] [phone] Soha Aguilera ANP [address] [place] [address] Pre-visit Planning (SDOH screening was completed on [...] Description 10/18/2024 9:15 AM EDT Office Visit [facility] [address] [place] [address] Soha Aguilera ANP [address] [place] [address] documented as of this encounter Visit Diagnoses Not on filedocumented in this encounter Additional Health Concerns Assessment Noted Time PHQ-9 Depression Total Score: 19 024 10:19 AM EDT documented as of this encounter Care Teams Rock Star Relationship Specialty Start Date End Date Soha Aguilera ANP [address] [place] [address] PCP - General Family Medicine 11/08/19 documented as of this encounter
--- OUTSIDE RECORDS SUMMARY | 2024-07-23 16:57 | XMS_ITS | Encounter Summary ---
Author Organization [employer] Address [address] [place] [address] 7 [place] [address] Care Team Providers Care Stripper Printed Circuit Boards Name Role Phone Inocencio Cassidy Primary Care Provider [phone] Reason for Visit * Reason Comments CHW - Office Visit Encounter Details Date Type Department Care Team ([facility] st Contact Info) Description 07/19/2024 2:15 PM EST Office Visit [facility] MED[facility] [address] [place], [place] [phone] Inocencio Cassidy ANP [address] [place] [address] History of pneumonia (Primary Dx); Shortness of [...] Description 10/18/2024 9:15 AM EDT Office Visit [facility] [address] [place] [address] Inocencio Cassidy ANP [address] [place] [address] documented as of this encounter Procedures Procedure Name Priority Date/Time Associated Diagnosis Comments XR CHEST 2 VIEWS Routine 07/23/2024 2:10 PM EST History of pneumonia Shortness of breath CBC WITH AUTO DIFFERENTIAL Routine 07/19/2024 3:28 PM EST Shortness of breath Easy bruising IRON AND TOTAL IRON BINDING CAPACITY Routine 07/19/2024 3:28 PM EST Easy bruising documented in this encounter Results * XR Chest 2 Views (07/23/2024 2:10 PM EST) Anatomical Region Laterality Modality Chest Radiographic Batsheva ging 07/23/2024 2:10 PM EST Narrative 07/23/2024 3:40 PM EST ?[facility] ?[address] ?[place] [address] ?XRay Report ? Signed ? Patient: Nancy Johnson ?MR#: ?? [id number] ? : 1990 ?Acct:[id number] ? Age/Sex: 34 / F ?ADM Date: 07/23/24 ? Loc: HO.HHCX ? Attending Dr: Inocencio Cassidy NP ? Ordering Physician: INOCENCIO CASSIDY NP ?? Date of Service: 07/23/24 ?? Procedure(s): XR chest 2V ?? Accession Number(s): [id number] ? cc: INOCENCIO CASSIDY NP ? EXAMINATION: ?? XR CHEST ? CLINICAL INFORMATION: ?? h/o PNA 03/2024, ongoing SOB ? COMPARISON: ?? None available. ? TECHNIQUE: ?? 2 views of the chest were obtained. ? FINDINGS: ?? No significant abnormality is noted involving the heart, lungs, ?? mediastinum, bony thorax or soft tissues. ? XR/XR chest 2V ?? IMPRESSION: ?? Unremarkable chest examination. ? Electronically signed by: ??Alfred Kristine MD ??07/23/2024 03:37 PM EST RP ? Dictated By: ?Kristine,Alfred S MD ? Signed By: ?<Electronically signed by Alfred S Kristine, MD in OV> ?07/23/24 1537 ? DD/ 1410 ? TD/TT: 07/23/24 1419 ? Screener Operator: MSM ? Procedure Note Ramo, Image - 07/23/2024 [facility] [address] [place] [address] XRay Report Signed Patient: Markel Johnson#: [id number] : 1990Acct:[id number] Age/Sex: 34 / FADM Date: 07/23/24 Loc: HO.HHCX Attending Dr: Inocencio Cassidy GI TECHNICIAN Ordering Physician: INOCENCIO CASSIDY NP Date of Service: 07/23/24 Procedure(s): XR chest 2V Accession Number(s): [id number] cc: INOCENCIO CASSIDY NP EXAMINATION: XR CHEST CLINICAL INFORMATION: h/o PNA 03/2024, ongoing SOB COMPARISON: None available. TECHNIQUE: 2 views of the chest were obtained. FINDINGS: No significant abnormality is noted involving the heart, lungs, mediastinum, bony thorax or soft tissues. XR/XR chest 2V IMPRESSION: Unremarkable chest examination. Electronically signed by: Alfred Carmona MD 07/23/2024 03:37 PM EST Dictated By: Alfred Carmona MD Signed By: <Electronically signed by Alfred Carmona MD in OV> 07/23/24 1537 DD/ 1410 TD/TT: 07/23/24 1419 Screener Operator: DAVEY us Inocencio Cassidy ANP IMG XR PROCEDURES Final Result * Iron And Total Iron Binding Capacity (07/19/2024 3:28 PM EST) Iron 130 30 - 160 mcg/dL [facility] Total Iron Binding Capacity 300 228 - 428 mcg/dL [facility] Percent Iron Saturation 43 15 - 50 % [facility] Unsaturated Iron Binding 170 ug/dL [facility] Blood Venous blood specimen / Unknown 07/19/2024 3:28 PM EST 07/19/2024 4:04 PM EST us Inocencio Cassidy ANP LAB BLOOD ORDERABLES Final Resul t [facility] [address] [place] [phone] * (ABNORMAL) CBC auto differential (07/19/2024 3:28 PM EST) White Blood Count 5.7 4.8 - 10.8 X10*3/uL [facility] Red Blood Count 4.48 4.20 - 5.50 X10*6/uL [facility] Hemoglobin 13.4 12.0 - 16.0 g/dl [facility] Hematocrit 38.4 37.0 - 47.0 % [facility] Mean Corpuscular Volume 85.7 80.0 - 98.0 fL [facility] Mean Corpuscular Hemoglobin 29.9 27.0 - 33.0 pg [facility] Mean Corpuscular HGB Conc 34.9 31.0 - 35.0 g/dl [facility] Red Cell Distribution Width 12.7 11.0 - 16.0 % [facility] Platelet Count 278 160 - 400 X10*3/uL [facility] Mean Platelet Volume 9.6 9.4 - 12.3 fL [facility] Neutrophils Percent Auto 50.8 45 - 73 % [facility] Imm Gran Pct Auto 0.2 0.0 - 0.4 % [facility] Lymphocytes Percent Auto 35.6 20 - 40 % [facility] Monocytes Percent Auto 7.4 2 - 11 % [facility] Eosinophils Percent Auto 4.9(H) 0 - 4 % [facility] Basophils Percent Auto 1.1 0 - 2 % [facility] NRBC Pct Auto 0.0 0.0 - 0.2 /100WBC [facility] Neutrophils Absolute Auto 2.9 2.0 - 8.3 x10*3/uL [facility] Imm Gran Abs Auto 0.01 0.00 - 0.03 X10*3/uL [facility] Lymphocytes Absolute Auto 2.0 1.2 - 4.9 X10*3/uL [facility] Monocytes Absolute Auto 0.4 0.1 - 1.2 X10*3/uL [facility] Eosinophils Absolute Auto 0.3 0.0 - 0.4 X10*3/uL [facility] Basophils Absolute Auto 0.1 0.0 - 0.2 X10*3/uL [facility] NRBC Abs Auto 0.000 0.0 - 0.012 X10*3/uL [facility] Blood Venous blood specimen / Unknown 07/19/2024 3:28 PM EST 07/19/2024 4:04 PM EST Inocencio DOWNEY LAB BLOOD ORDERABLES Final Resul t [facility] [address] [place] [address] [phone] documented in this encounter Visit Diagnoses Diagnosis History of pneumonia- Primary Personal history of pneumonia (recurrent) Shortness of breath Seborrheic dermatitis of scalp Other seborrheic dermatitis Easy bruising Other symptoms involving skin and integumentary tissues documented in this encounter Additional Health Concerns Assessment Noted Time PHQ-9 Depression Total Score: 16 07/19/ 025 3:25 PM EST documented as of this encounter Care Teams Stripper Printed Circuit Boards Relationship Specialty Start Date End Date Inocencio Cassidy ANP [address] [place] [phone] PCP - General Family Medicine 11/08/19 documented as of this encounter
--- OUTSIDE RECORDS SUMMARY | 2024-07-23 16:57 | XMS_ITS | Encounter Summary ---
Author Organization [employer] Address [address] [facility] 7t [place] [address] Care Team Providers Care Gear Tooth Grinding Machine Operator Name Role Phone Soha Aguilera Primary Care Provider [phone] Reason for Referral * Imaging (Routine) - Closed Specialty Diagnoses / Procedures Referred By Contashley t Referred To Contact Radiology Diagnoses Abdominal wall mass Procedures US ABDOMINAL WALL, SOFT TISSUE RIGHT Ana Laura Montelongo FNP [address] [place] [address] Phone: tel: fax: [facility] [address] [facility], [address] [place] [address] Phone: tel: fax: Referral ID Status Reason Start Date Expiration Date Visits Re quested Visits Authorized [id number] Closed 09/02/2023 09/01/2024 1 1 Encounter Details Date Type Department Care Team (Late st Contact Info) Description 09/02/2023 Orders Only [facility] & PEDS [address] [place], [place] [phone] Ana Laura Montelongo FNP [address] [place], [place] [phone] Abdominal wall mass (Primary Dx) Social History [...] Description 10/18/2024 9:15 AM EDT Office Visit [facility] MEDICINE [address] [place] [phone] Soha Aguilera ANP [address] [place] [address] Scheduled Orders Name Type Priority Associated Diagnoses Orde r Schedule US ABDOMINAL WALL, SOFT TISSUE RIGHT Imaging Routine Abdominal wall mass Expected: 09/02/2023, Expires: 09/01/2024 documented as of this encounter Visit Diagnoses Diagnosis Abdominal wall mass- Primary Abdominal or pelvic swelling, mass or lump, unspecified site documented in this encounter Care Teams Gear Tooth Grinding Machine Operator Relationship Specialty Start Date End Date Soha Aguilera ANP [address] [place] [phone] PCP - General Family Medicine 11/08/19 documented as of this encounter
--- OUTSIDE RECORDS SUMMARY | 2024-07-23 16:57 | XMS_ITS | Encounter Summary ---
Author Organization [employer] Address [address] [facility] 7 [place] [address] Care Team Providers Care Accreditation Manager Name Role Phone Inocencio Cassidy Primary Care Provider [phone] Reason for Visit * Reason Onset Date Comments Med Refill 07/23/2024 Encounter Details Date Type Department Care Team ([facility] st Contact Info) Description 07/23/2024 Telephone [facility] MEDICINE [address] [place], [place] [phone] Inocencio Cassidy ANP [address] [place] [address] Med Refill Social History Tobacco Use Types Packs/Day Years [...] encounter Miscellaneous Notes * Telephone Encounter - Danna Heller RN - 07/23/2024 3:10 PM EST Returned call to pt using [employer] inset cutter Christine #[id number] to advise amitriptyline 25mg prescription sent to [facility] pharmacy and to call pharmacy directly to ensure ready for diamond picker. Pt verbalized understanding, no further questions. * Addendum Note - SHAYAN Menon - 07/23/2024 3:01 PM ESTAddended by: INOCENCIO CASSIDY on: 07/23/2024 03:01 PM Modules accepted: Orders * Telephone Encounter - SHAYAN Menon - 07/23/2024 3:01 PM EST Apologies - all set * Telephone Encounter - Danna Heller RN - 07/23/2024 2:43 PM EST Amitriptyline 10mg discontinued at 07/19/24 visit. [id number] prescribed for same diagnosis. Will message PCP to clarify plan of care & medication for migraines. * Telephone Encounter - Shruthi Vigiliago - 07/23/2024 2:30 PM EST Pt walked in stating she needs refill for Amitriptyline at 25mg pt states she went to pharmacy and theirs nothing . documented in this encounter Plan of Treatment Upcoming Encounters Date Type Department Care Team (Late st Contact Info) Description 10/18/2024 9:15 AM EDT Office Visit [facility] MEDICINE [address] [place] [phone] Inocencio Cassidy ANP [address] [place] [address] documented as of this encounter Visit Diagnoses Diagnosis Intractable migraine without aura and without status migrainosus- Primary documented in this encounter Additional Health Concerns Assessment Noted Time PHQ-9 Depression Total Score: 16 07/19/ 025 3:25 PM EST documented as of this encounter Care Teams Accreditation Manager Relationship Specialty Start Date End Date Inocencio Cassidy ANP [address] [place] [phone] PCP - General Family Medicine 11/08/19 documented as of this encounter
--- OUTSIDE RECORDS SUMMARY | 2024-07-23 16:57 | XMS_ITS | Encounter Summary ---
Author Organization [employer] Address [address] [facility] 7t [place] [address] Care Team Providers Care Telegraph Printer Mechanic Name Role Phone Willy Soha DOWNEY Primary Care Provider [phone] Reason for Visit * Reason Comments Sore Throat Encounter Details Date Type Department Care Team ([facility] st Contact Info) Description 07/03/2024 10:00 AM EST Office Visit [facility] [address] [place] [phone] Carla Ceballos MD [address] [place] [address] Strep pharyngitis (Primary Dx); Sore throat Social [...] 9:15 AM EDT Office Visit [facility] MED[facility] [address] [place] [address] Soha Aguilera, ANP [address] [place] [address] documented as of this encounter Procedures Procedure [...] AM EST) Influenza A Negative Negative, Indeterminate [facility] Swab 07/03/2024 10:2 8 AM EST Carla Ceballos MD POINT OF CARE TEST ENTER/E DIT ORDERABLES Final Result Performing Organization Address City/[facility]/ZIP Co de Phone Number [facility] [address] [place] [phone] * Influenza B (ID NOW Rapid Molecular) (07/03/2024 10:28 AM EST) Influenza B Negative Negative, Indeterminate [facility] Swab 07/03/2024 10:2 8 AM EST Carla Ceballos MD POINT OF CARE TEST ENTER/E DIT ORDERABLES Final Result Performing Organization Address [facility] Co de Phone Number [facility] [address] [place] [phone] documented in this encounter Visit Diagnoses Diagnosis Strep pharyngitis- Primary Sore throat Acute pharyngitis documented in this encounter Additional Health Concerns Assessment Noted Time PHQ-9 Depression Total Score: 19 024 10:19 AM EDT documented as of this encounter Care Teams Telegraph Printer Mechanic Relationship Specialty Start Date End Date Soha Aguilera ANP [address] [place] [phone] PCP - General Family Medicine 11/08/19 documented as of this encounter
--- OUTSIDE RECORDS SUMMARY | 2024-07-23 16:57 | XMS_ITS | Encounter Summary ---
Author Organization [employer] Address [address] [facility] 7t [place] [address] Care Team Providers Care Weather Strip Mechanic Name Role Phone Soha Aguilera Primary Care Provider [phone] Reason for Visit * Reason Onset Date Comments [facility] 08/31/2023 Encounter Details Date Type Department Care Team ([facility] st Contact Info) Description 08/31/2023 Telephone [facility] MEDICINE [address] [place], [place] [phone] Soha Aguilera ANP [address] [place] [address] [facility] Social History Tobacco Use Types [...] AM EDT Walk in from Jorge Rodriguez Condominium Property Manager with [facility] [phone] stating order for US ABD complete needs [...] Description 10/18/2024 9:15 AM EDT Office Visit [facility] MEDICINE [address] [place] [address] Soha Aguilera ANP [address] [place] [address] documented as of this encounter Visit Diagnoses Not on filedocumented in this encounter Care Teams Weather Strip Mechanic Relationship Specialty Start Date End Date Soha Aguilera ANP [address] [place] [address] PCP - General Family Medicine 11/08/19 documented as of this encounter
--- OUTSIDE RECORDS SUMMARY | 2024-07-23 16:57 | XMS_ITS | Encounter Summary ---
Author Organization [employer] Address [address] [facility] 7t [place] [address] Care Team Providers Care Food Supervisor Name Role Phone Willy Soha DOWNEY Primary Care Provider [phone] Encounter Details Date Type Department Care Team [...] Description 10/18/2024 9:15 AM EDT Office Visit [facility] MEDICINE [address] [place] [address] Soha Aguilera ANP [address] [place] [address] documented as of this encounter Visit Diagnoses Not on filedocumented in this encounter Additional Health Concerns Assessment Noted Time PHQ-9 Depression Total Score: 16 025 3:25 PM EST documented as of this encounter Care Teams Food Supervisor Relationship Specialty Start Date End Date Soha Aguilera ANP [address] [place] [address] PCP - General Family Medicine 11/08/19 documented as of this encounter
--- OUTSIDE RECORDS SUMMARY | 2024-07-23 16:57 | XMS_ITS | Encounter Summary ---
Author Organization [employer] Address [address] [facility] 7 [place] [address] Care Team Providers Care Dice Manager Name Role Phone Soha Aguilera Primary Care Provider [phone] Reason for Visit * Reason Onset Date Comments Chart Prep 07/16/2024 Encounter Details Date Type Department Care Team ([facility] st Contact Info) Description 07/16/2024 Telephone [facility] MEDICINE [address] [place], [place] [phone] Soha Aguilera ANP [address] [place] [address] Chart Prep Social History Tobacco Use Types [...] Description 10/18/2024 9:15 AM EDT Office Visit [facility] MEDICINE [address] [place] [address] Soha Aguilera ANP [address] [place] [address] documented as of this encounter Visit Diagnoses Not on filedocumented in this encounter Additional Health Concerns Assessment Noted Time PHQ-9 Depression Total Score: 19 024 10:19 AM EDT documented as of this encounter Care Teams Dice Manager Relationship Specialty Start Date End Date Soha Aguilera ANP [address] [place] [phone] PCP - General Family Medicine 11/08/19 documented as of this encounter
--- OUTSIDE RECORDS SUMMARY | 2024-07-23 16:57 | XMS_ITS | Encounter Summary ---
Author Organization [employer] Address [address] [facility] 7t [place] [address] Care Team Providers Care Inflated Ball Molder Name Role Phone Soha Aguilera Primary Care Provider [phone] Reason for Visit * Reason Onset Date Comments Results 09/26/2023 Encounter Details Date Type Department Care Team ([facility] st Contact Info) Description 09/26/2023 Telephone [facility] MEDICINE [address] [place], [place] [phone] Soha Aguilera ANP [address] [place] [address] Results Social History Tobacco Use Types Packs/Day [...] encounter Miscellaneous Notes * Telephone Encounter - Noamie Jimenes RN - 09/26/2023 12:56 PM EDT [...] Description 10/18/2024 9:15 AM EDT Office Visit [facility] MEDICINE [address] [place] [address] Soha Aguilera ANP [address] [place] [address] documented as of this encounter Visit Diagnoses Not on filedocumented in this encounter Care Teams Inflated Ball Molder Relationship Specialty Start Date End Date Soha Aguilera ANP [address] [place] [address] PCP - General Family Medicine 11/08/19 documented as of this encounter
--- OUTSIDE RECORDS SUMMARY | 2024-07-23 16:57 | XMS_ITS | Encounter Summary ---
Author Organization [employer] [facility] Address [address] [place] [address] 7t [place] [address] Care Team Providers Care Community Service Director Name Role Phone Soha Aguilera Primary Care Provider [phone] Encounter Details Date Type Department Care Team (Late st Contact Info) Description 06/11/2022 Orders Only [facility] MEDICINE [address] [place] [phone] Mary Ellen Ordaz LPN Social History Tobacco [...] 9:15 AM EDT Office Visit [facility] MEDICINE [address] [place] [address] Soha Aguilera ANP [address] [place] [address] documented as of this encounter Visit Diagnoses Not on filedocumented in this encounter Care Teams Community Service Director Relationship Specialty Start Date End Date Soha Aguilera ANP [address] [place] [address] PCP - General Family Medicine 11/08/19 documented as of this encounter
--- OUTSIDE RECORDS SUMMARY | 2024-07-23 16:57 | XMS_ITS | Encounter Summary ---
Author Organization [employer] Address [address] [facility] 7 [place] [address] Care Team Providers Care Policy Intern Name Role Phone Soha Aguilera Primary Care Provider [phone] Reason for Visit * Reason Onset Date Comments Appointment Request 04/05/2023 Encounter Details Date Type Department Care Team ([facility] st Contact Info) Description 04/05/2023 Telephone [facility] [address] [place], [place] [phone] Soha Aguilera ANP [address] [place] [address] Appointment Request Social History Tobacco Use Types [...] 10/18/2024 9:15 AM EDT Office Visit [facility] [address] [place] [address] Soha Aguilera ANP [address] [place] [address] documented as of this encounter Visit Diagnoses Not on filedocumented in this encounter Care Teams Policy Intern Relationship Specialty Start Date End Date Soha Aguilera ANP [address] [place] [address] PCP - General Family Medicine 11/08/19 documented as of this encounter
--- OUTSIDE RECORDS SUMMARY | 2024-07-23 16:57 | XMS_ITS | Clinical Summary ---
Author Organization [employer] Address [address] [place] [address] 7t [place] [address] Care Team Providers Care Implementation Services Analyst Name Role Phone Willy Inocencio DOWNEY Primary Care Provider [phone] Allergies No known active allergies Medications * [...] time. Active ergocalciferol (Vitamin D-2) 1.25 MG (60955 UT) capsule take 1 capsule (65452PSKHP) by oral route ONCE A WEEK for [...] TO AFFECTED AREA(S) TWICE DAILY 30 g 06/15/19 25 Active amoxicillin (Amoxil) 500 MG capsuleIndicati ons:Strep pharyngitis Take 1 tab po bid for 10 days 20 capsule 07/03/19 25 Active Fluocinolone Acetonide Scalp 0.01 % oilIndications: Seborrheic dermatitis of scalp Apply in evening, wash off in AM, 3x/wk 118.28 mL 2 07/19/19 25 Active amitriptyline (Elavil) 25 MG tabletIndicatio ns:Intractable migraine without aura and without status migrainosus Take 1 tablet (25 mg) by mouth at bedtime. 90 tablet 07/24/19 25 025 Active selenium sulfide (Selsun) 2.5 % shampooIndicati [...] Encounters Date Type Department Care Team Description 07/23/[address] [address] Inocencio Cassidy ANP Med Refill 07/19/2024 2:15 PM EST Office Visit [address] [address] Inocencio Cassidy ANP History of pneumonia (Primary Dx); Shortness of breath; Seborrheic dermatitis of scalp; Easy bruising 07/19/2024 Travel 07/16/[address] [address] Inocencio Cassidy ANP Chart Prep 07/06/2024 Patient Outreach [address] [address] Inocencio Cassidy ANP Pre-visit Planning (SDDC screening was completed on 06/14/2024) 07/03/2024 10:00 AM EST Office Visit [facility] [address] [place] [address] Carla Ceballos MD Strep pharyngitis (Primary Dx); Sore throat 06/27/[address] [address] Cherelle Rios MA chart prep 06/15/[address] [address] Inocencio Cassidy ANP Rash 06/14/2024 Patient Outreach [address] [address] Inocencio Cassidy ANP Care Coordination ([facility] outreach for SDOH PT-1 and food needs- LVM ) 06/14/2024 Patient Outreach [address] [address] Inocencio Cassidy ANP Pre-visit Planning (SDOH Screening positive and Tobacco screening negative) 06/12/2024 1:45 PM EST Office Visit [facility] [address] [place] [address] Keila Rowell, OD 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) 05/14/[address] [address] Audrey Honeycutt MA June recall 05/02/2024 10:00 AM EST Office Visit [facility] [address] [place] [address] Keila Rowell, OD Lattice degeneration of left retina (Primary Dx); Regular astigmatism of both eyes 05/02/2024 Travel 04/24/2024 10:30 AM EST Office Visit [address] [address] Inocencio Cassidy ANP Acute cough (Primary Dx); Pneumonia of right lower lobe due to infectious organism 04/24/2024 Travel 04/24/[address] [address] Inocencio Cassidy ANP Nurse Triage from Last 3 Months Immunizations Name Administration Dates Next Due DTaP 02/18/2012, 5,07/01/1993,11/10,1990,1990 HPV, Quadrivalent 09/26/2012,02/25/2009,12/26/19 09 Hep B, Adolescent or Pediatric 01/18/2006,1998,05/30/1998 Hib (HbOC) 10/10/1992,1990 IPV 12/02/1994, 3,1990,09/06 Influenza injectable quadriv [...] EDT Office Visit [facility] [address] [place] [address] Inocencio Cassidy ANP [address] [place] [address] Health Maintenance Due Date Last Done Comments [...] EST History of pneumonia Shortness of breath IRON AND TOTAL IRON BINDING CAPACITY Routine [...] Recently Relevant to Health Maintenance Results * XR Chest 2 Views (07/23/2024 2:10 PM EST) Anatomical Region Laterality Modality Chest Radiographic Batsheva ging 07/23/2024 2:10 PM EST Narrative 07/23/2024 3:40 PM EST ?[facility] ?[address] ?[place] [address] ?XRay Report ? Signed ? Patient: Schmitt Phuc,Nancy ?MR#: ?? [id number] ? : 1990 ?Acct:[id number] ? Age/Sex: 34 / F ?ADM Date: 03/03/25 ? Loc: HO.HHCX ? Attending : Inocencio Cassidy NP ? Ordering Physician: INOCENCIO CASSIDY NP ?? Date of Service: 07/23/24 ?? Procedure(s): XR chest 2V ?? Accession Number(s): [id number] ? cc: INOCENCIO CASSIDY NP ? EXAMINATION: [...] chest examination. ? Electronically signed by: ??Alfred Carmona MD ??07/23/2024 03:37 PM EST RP ? Dictated By: ?Alfred Carmona MD ? Signed By: ?<Electronically signed by Alfred Carmona MD in OV> ?07/23/24 1537 ? DD/ 1410 ? TD/TT: 07/23/24 1419 ? [employer] Law Clerk: MSM ? Procedure Note Donotuseinterpreter, Image - 07/23/[address] [address] XRay Report Signed Patient: Lamin JohnsonnMR#: [id number] : 1990Acct:[id number] Age/Sex: 34 / FADM Date: 07/23/24 Loc: HO.HHCX Attending Dr: Inocencio Cassidy NP Ordering Physician: INOCENCIO CASSIDY NP Date of Service: 07/23/24 Procedure(s): XR chest 2V Accession Number(s): [id number] cc: INOCENCIO CASSIDY NP EXAMINATION: XR CHEST [...] 07/23/24 1537 DD/ 1410 TD/TT: 07/23/[address] Law Clerk: MSM us Inocencio Cassidy ANP IMG XR PROCEDURES Final Result * (ABNORMAL) CBC auto differential (07/19/2024 3:28 PM EST) White Blood Count 5.7 4.8 - 10.8 X10*3/uL [facility] Red Blood Count 4.48 4.20 - 5.50 X10*6/uL [facility] Hemoglobin 13.4 12.0 - 16.0 g/dl [facility] Hematocrit 38.4 37.0 - 47.0 % [facility] Mean Corpuscular Volume 85.7 80.0 - 98.0 fL [facility] Mean Corpuscular Hemoglobin 29.9 27.0 - 33.0 pg [facility] Mean Corpuscular HGB Conc 34.9 31.0 - 35.0 g/dl [facility] Red Cell Distribution Width 12.7 11.0 - 16.0 % [facility] Platelet Count 278 160 - 400 X10*3/uL [facility] Mean Platelet Volume 9.6 9.4 - 12.3 fL [facility] Neutrophils Percent Auto 50.8 45 - 73 % [facility] Imm Gran Pct Auto 0.2 0.0 - 0.4 % [facility] Lymphocytes Percent Auto 35.6 20 - 40 % [facility] Monocytes Percent Auto 7.4 2 - 11 % [facility] Eosinophils Percent Auto 4.9(H) 0 - 4 % [facility] Basophils Percent Auto 1.1 0 - 2 % [facility] NRBC Pct Auto 0.0 0.0 - 0.2 /100WBC [facility] Neutrophils Absolute Auto 2.9 2.0 - 8.3 x10*3/uL [facility] Imm Gran Abs Auto 0.01 0.00 - 0.03 X10*3/uL [facility] Lymphocytes Absolute Auto 2.0 1.2 - 4.9 X10*3/uL [facility] Monocytes Absolute Auto 0.4 0.1 - 1.2 X10*3/uL [facility] Eosinophils Absolute Auto 0.3 0.0 - 0.4 X10*3/uL [facility] Basophils Absolute Auto 0.1 0.0 - 0.2 X10*3/uL [facility] NRBC Abs Auto 0.000 0.0 - 0.012 X10*3/uL [facility] Blood Venous blood specimen / Unknown 07/19/2024 3:28 PM EST 07/19/2024 4:04 PM EST Inocencio Cassidy [facility] LAB BLOOD ORDERABLES Final Resul t Performing Organization Address [facility] Co de Phone Number [facility] [address] [place] [phone] * Iron And Total Iron Binding Capacity (07/19/2024 3:28 PM EST) Iron 130 30 - 160 mcg/dL [facility] Total Iron Binding Capacity 300 228 - 428 mcg/dL [facility] Percent Iron Saturation 43 15 - 50 % [facility] Unsaturated Iron Binding 170 ug/dL [facility] Blood Venous blood specimen / Unknown 07/19/2024 3:28 PM EST 07/19/2024 4:04 PM EST Inocencio Cassidy [facility] LAB BLOOD ORDERABLES Final Resul t Performing Organization Address [facility] Co de Phone Number [facility] [address] [place] [phone] * Influenza B (ID NOW Rapid Molecular) (07/03/2024 10:28 AM EST) Influenza B Negative Negative, Indeterminate [facility] Swab 07/03/2024 10:2 8 AM EST Carla Ceballos MD POINT OF CARE TEST ENTER/E DIT ORDERABLES Final Result Performing Organization Address [facility] Co de Phone Number [facility] [address] [place] [phone] * Influenza A (ID NOW Rapid Molecular) (07/03/2024 10:28 AM EST) [facility] Influenza A Negative Negative, Indeterminate [facility] Swab 07/03/2024 10:2 8 AM EST Carla Ceballos MD POINT OF CARE TEST ENTER/E DIT ORDERABLES Final Result Performing Organization Address [facility] Co de Phone Number [facility] [address] [place] [phone] * POCT Rapid COVID Ag (07/03/2024 10:28 AM EST) [facility] Rapid COVID Ag Negative Swab 07/03/2024 10:2 8 AM EST Carla Ceballos MD POINT OF CARE TEST ENTER/E DIT ORDERABLES Final Result * (ABNORMAL) POCT rapid strep A manually resulted (07/03/2024 10:28 AM EST) [facility] Rapid Strep A Screen Positive( A) Negative, None Detected Swab 07/03/2024 10:2 8 AM EST us Carla Ceballos MD POINT OF CARE TEST ENTER/E DIT ORDERABLES Final Result * Hepatitis C Antibody with Reflex to HCV, RNA, Quantitative, Real-Time PCR (06/16/2023 10:36 AM EST) [facility] Hepatitis C Antibody Nonreactive Nonreactive [facility] Comment:Antibodies to HCV no t detected; does not exclude early acuteHCV infection. Blood Venous blood specimen / Unknown 06/16/2023 10:36 AM EST 06/16/2023 11:36 AM EST Inocencio DOWNEY LAB BLOOD ORDERABLES Final Resul t Performing Organization Address City/[facility]/ZIP Co de Phone Number [facility] [address] [place] [phone] * HIV-1/2 Antigen and Antibodies, Fourth Generation, with Reflexes (06/16/2023 10:36 AM EST) HIV AB/AG Nonreactive Nonreactive [facility] Comment:HIV-1 p24 Ag and/or HIV-1/HIV-2 Ab not detected.A test result that is nonreactive does not exclude thepossibility of exposure to or infection with HIV-1 and/orHIV-2. Nonreactive results in this assay for individualswith prior exposure to HIV-1 and/or HIV-2 may be due toantigen and antibody levels that are below the limit ofdetection of this assay.The [employer] HIV Ag/Ab Combo assay result andsupplemental assay results should be interpreted inconjunction with the patient's clinical presentation,history and other laboratory results. If the results areinconsistent with clinical evidence, additional testing issuggested to confirm the result. Blood Venous blood specimen / Unknown 06/16/2023 10:36 AM EST 06/16/2023 11:36 AM EST Inocencio [facility] LAB BLOOD ORDERABLES Final Resul t [facility] [address] [place] [phone] [phone] from Last 3 Months or Most Recently Relevant to Health Maintenance Insurance [facility] C3 Care Teams Implementation Services Analyst Relationship Specialty Start Date End Date Inocencio Cassidy ANP [address] [place] [phone] PCP - General Family Medicine 11/08/19
== END 2024-07-23 14:11 | disposition home or self-care (01) ==
LOC: HO.HHCX 14:10
PROVIDERS: Visit Provider Nurse Practitioner Primary Care
DX: R06.02 Shortness of breath (principal); Z87.01 Personal history of pneumonia (recurrent)
CPT/HCPCS: 71046

== ENCOUNTER → 2024-07-23 14:10 | Outpatient (BNV) | payer MEDICAID, SELFPAY | PROVIDERS: Visit Provider Radiology Diagnostic Radiology | DX: R06.02 Shortness of breath (principal) | CPT/HCPCS: 71046 ==

== ENCOUNTER 2024-07-25 17:26 | Outpatient (REF) | payer MEDICAID, SELFPAY ==
--- OUTSIDE RECORDS SUMMARY | 2024-07-25 19:30 | XMS_ITS | Encounter Summary ---
Author Organization [employer] Address [address] [facility] 7t [place] [address] Care Team Providers Care Truck Chauffeur Name Role Phone Willy Soha DOWNEY Primary Care Provider [phone] Reason for Visit * Reason Comments Sore Throat Encounter Details Date Type Department Care Team ([facility] st Contact Info) Description 07/03/2024 10:00 AM EST Office Visit [facility] [address] [place] [phone] Carla Ceballos MD [address] [place] [address] Strep pharyngitis (Primary Dx); Sore throat Social [...] Visit [facility] [address] [place] [address] Soha Aguilera, ANP [address] [place] [address] documented as of this encounter Procedures Procedure [...] AM EST) Influenza A Negative Negative, Indeterminate [facility] Swab 07/03/2024 10:2 8 AM EST Carla Ceballos MD POINT OF CARE TEST ENTER/E DIT ORDERABLES Final Result Performing Organization Address City/[facility]/ZIP Co de Phone Number [facility] [address] [place] [phone] * Influenza B (ID NOW Rapid Molecular) (07/03/2024 10:28 AM EST) Influenza B Negative Negative, Indeterminate [facility] Swab 07/03/2024 10:2 8 AM EST Carla Ceballos MD POINT OF CARE TEST ENTER/E DIT ORDERABLES Final Result Performing Organization Address [facility] Co de Phone Number [facility] [address] [place] [phone] documented in this encounter Visit Diagnoses Diagnosis Strep pharyngitis- Primary Sore throat Acute pharyngitis documented in this encounter Additional Health Concerns Assessment Noted Time PHQ-9 Depression Total Score: 19 024 10:19 AM EDT documented as of this encounter Care Teams Truck Chauffeur Relationship Specialty Start Date End Date Soha Aguilera ANP [address] [place] [phone] PCP - General Family Medicine 11/08/19 documented as of this encounter
--- OUTSIDE RECORDS SUMMARY | 2024-07-25 19:30 | XMS_ITS | Encounter Summary ---
Author Organization [employer] Address [address] [place] [address] 7 [place] [address] Care Team Providers Care Plant Operations Coordinator Name Role Phone Inocencio Cassidy Primary Care Provider [phone] Reason for Visit * Reason Comments CHW - Office Visit Encounter Details Date Type Department Care Team ([facility] st Contact Info) Description 07/19/2024 2:15 PM EST Office Visit [facility] [address] [place], [place] [phone] Inocencio Cassidy ANP [address] [place] [address] History of pneumonia (Primary Dx); Shortness of [...] Description 10/18/2024 9:15 AM EDT Office Visit [facility] [address] [place] [address] Inocencio Cassidy ANP [address] [place] [address] documented as of this encounter Procedures Procedure [...] PM EST Narrative 07/23/2024 3:40 PM EST ?[facility] ?[address] ?[place] [address] ?XRay Report ? Signed ? Patient: Nancy Johnson ?MR#: ?? [id number] ? : 1990 ?Acct:[id number] ? Age/Sex: 34 / F ?ADM Date: 07/23/24 ? Loc: HO.HHCX ? Attending Dr: Inocencio Cassidy NP ? Ordering Physician: INOCENCIO CASSIDY NP ?? Date of Service: 07/23/24 ?? Procedure(s): XR chest 2V ?? Accession Number(s): [id number] ? cc: INOCENCIO CASSIDY NP ? EXAMINATION: [...] DD/ 1410 ? TD/TT: 07/23/24 1419 ? Operational Intelligence Analyst: MSM ? Procedure Note Ramo, Image - 07/23/2024 [facility] [address] [place] [address] XRay Report Signed Patient: Markel Johnson#: [id number] : 1990Acct:[id number] Age/Sex: 34 / FADM Date: 07/23/24 Loc: HO.HHCX Attending Dr: Inocencio Cassidy DIRECTOR [employer] Ordering Physician: INOCENCIO CASSIDY NP Date of Service: 07/23/24 Procedure(s): XR chest 2V Accession Number(s): [id number] cc: INOCENCIO CASSIDY NP EXAMINATION: XR CHEST [...] 07/23/24 1537 DD/ 1410 TD/TT: 07/23/24 1419 Operational Intelligence Analyst: DAVEY us Inocencio Cassidy ANP IMG XR PROCEDURES Final Result * Iron And Total Iron Binding Capacity (07/19/2024 3:28 PM EST) Iron 130 30 - 160 mcg/dL [facility] Total Iron Binding Capacity 300 228 - 428 mcg/dL [facility] Percent Iron Saturation 43 15 - 50 % [facility] Unsaturated Iron Binding 170 ug/dL [facility] Blood Venous blood specimen / Unknown 07/19/2024 3:28 PM EST 07/19/2024 4:04 PM EST us Inocencio Cassidy ANP LAB BLOOD ORDERABLES Final Resul t [facility] [address] [place] [phone] * (ABNORMAL) CBC auto differential (07/19/2024 3:28 PM EST) White Blood Count 5.7 4.8 - 10.8 X10*3/uL [facility] Red Blood Count 4.48 4.20 - 5.50 X10*6/uL [facility] Hemoglobin 13.4 12.0 - 16.0 g/dl [facility] Hematocrit 38.4 37.0 - 47.0 % [facility] Mean Corpuscular Volume 85.7 80.0 - 98.0 fL [facility] Mean Corpuscular Hemoglobin 29.9 27.0 - 33.0 pg [facility] Mean Corpuscular HGB Conc 34.9 31.0 - 35.0 g/dl [facility] Red Cell Distribution Width 12.7 11.0 - 16.0 % [facility] Platelet Count 278 160 - 400 X10*3/uL [facility] Mean Platelet Volume 9.6 9.4 - 12.3 fL [facility] Neutrophils Percent Auto 50.8 45 - 73 % [facility] Imm Gran Pct Auto 0.2 0.0 - 0.4 % [facility] Lymphocytes Percent Auto 35.6 20 - 40 % [facility] Monocytes Percent Auto 7.4 2 - 11 % [facility] Eosinophils Percent Auto 4.9(H) 0 - 4 % [facility] Basophils Percent Auto 1.1 0 - 2 % [facility] NRBC Pct Auto 0.0 0.0 - 0.2 /100WBC [facility] Neutrophils Absolute Auto 2.9 2.0 - 8.3 x10*3/uL [facility] Imm Gran Abs Auto 0.01 0.00 - 0.03 X10*3/uL [facility] Lymphocytes Absolute Auto 2.0 1.2 - 4.9 X10*3/uL [facility] Monocytes Absolute Auto 0.4 0.1 - 1.2 X10*3/uL [facility] Eosinophils Absolute Auto 0.3 0.0 - 0.4 X10*3/uL [facility] Basophils Absolute Auto 0.1 0.0 - 0.2 X10*3/uL [facility] NRBC Abs Auto 0.000 0.0 - 0.012 X10*3/uL [facility] Blood Venous blood specimen / Unknown 07/19/2024 3:28 PM EST 07/19/2024 4:04 PM EST Inocencio DOWNEY LAB BLOOD ORDERABLES Final Resul t [facility] [address] [place] [address] [phone] documented in this encounter Visit Diagnoses Diagnosis History of pneumonia- Primary Personal history of pneumonia (recurrent) Shortness of breath Seborrheic dermatitis of scalp Other seborrheic dermatitis Easy bruising Other symptoms involving skin and integumentary tissues documented in this encounter Additional Health Concerns Assessment Noted Time PHQ-9 Depression Total Score: 16 07/19/ 025 3:25 PM EST documented as of this encounter Care Teams Plant Operations Coordinator Relationship Specialty Start Date End Date Inocencio Cassidy ANP [address] [place] [phone] PCP - General Family Medicine 11/08/19 documented as of this encounter
--- OUTSIDE RECORDS SUMMARY | 2024-07-25 19:30 | XMS_ITS | Encounter Summary ---
Author Organization [employer] Address [address] [facility] 7 [place] [address] Care Team Providers Care Spool Worker Name Role Phone Inocencio Cassidy Primary Care Provider [phone] Reason for Visit * Reason Onset Date Comments Med Refill 07/23/2024 Encounter Details Date Type Department Care Team ([facility] st Contact Info) Description 07/23/2024 Telephone [facility] [address] [place], [place] [phone] Inocencio Cassidy ANP [address] [place] [address] Med Refill Social History Tobacco Use Types [...] PM EST Returned call to pt using [employer] manager market intelligence Christine #[phone] to advise amitriptyline 25mg prescription sent to [facility] pharmacy and to call pharmacy directly to ensure ready for picker tender. Pt verbalized understanding, no further questions. * Addendum Note - SHAYAN Menon - 07/23/2024 3:01 PM ESTAddended by: INOCENCIO CASSIDY on: 07/23/2024 03:01 PM Modules accepted: Orders * Telephone Encounter - SHAYAN Menon - 07/23/2024 3:01 PM EST Apologies - all set * Telephone Encounter - Danna Heller RN - 07/23/2024 2:43 PM EST Amitriptyline 10mg discontinued at 07/19/24 visit. Nrbapfq-zckqdlfnmertt-kqoulezi prescribed for same diagnosis. Will message PCP [...] 9:15 AM EDT Office Visit [facility] [address] [place] [phone] Inocencio Cassiyd ANP [address] [place] [address] documented as of this encounter Visit Diagnoses Diagnosis Intractable migraine without aura and without status migrainosus- Primary documented in this encounter Additional Health Concerns Assessment Noted Time PHQ-9 Depression Total Score: 16 07/19/ 025 3:25 PM EST documented as of this encounter Care Teams Spool Worker Relationship Specialty Start Date End Date Inocencio Cassidy ANP [address] [place] [phone] PCP - General Family Medicine 11/08/19 documented as of this encounter
--- OUTSIDE RECORDS SUMMARY | 2024-07-25 19:30 | XMS_ITS | Encounter Summary ---
Author Organization [employer] Address [address] [facility] 7t [place] [address] Care Team Providers Care Firer Locomotive Crane Name Role Phone WillySoha Primary Care Provider [phone] Reason for Visit * Reason Onset Date Comments chart prep 06/27/2024 Encounter Details Date Type Department Care Team ([facility] st Contact Info) Description 06/27/2024 Telephone [facility] [address] [place] [phone] Cherelle Rios MA chart prep Social History [...] Description 10/18/2024 9:15 AM EDT Office Visit [facility] [address] [place] [phone] Soha Aguilera ANP [address] [place] [address] documented as of this encounter Visit Diagnoses Not on filedocumented in this encounter Additional Health Concerns Assessment Noted Time PHQ-9 Depression Total Score: 19 024 10:19 AM EDT documented as of this encounter Care Teams Firer Locomotive Crane Relationship Specialty Start Date End Date Soha Aguilera ANP [address] [place] [phone] PCP - General Family Medicine 11/08/19 documented as of this encounter
--- OUTSIDE RECORDS SUMMARY | 2024-07-25 19:30 | XMS_ITS | Encounter Summary ---
Author Organization [employer] Address [address] [facility] 7 [place] [address] Care Team Providers Care Dedicated Intermodal Truck Driver Name Role Phone Soha Aguilera Primary Care Provider [phone] Reason for Visit * Reason Onset Date Comments Appointment Request 04/05/2023 Encounter Details Date Type Department Care Team ([facility] st Contact Info) Description 04/05/2023 Telephone [facility] [address] [place], [place] [phone] Soha Aguilera ANP [address] [place] [address] Appointment Request Social History Tobacco Use Types [...] Description 10/18/2024 9:15 AM EDT Office Visit [facility] [address] [place] [address] Soha Aguilera ANP [address] [place] [address] documented as of this encounter Visit Diagnoses Not on filedocumented in this encounter Care Teams Dedicated Intermodal Truck Driver Relationship Specialty Start Date End Date Soha Aguilera ANP [address] [place] [address] PCP - General Family Medicine 11/08/19 documented as of this encounter
--- OUTSIDE RECORDS SUMMARY | 2024-07-25 19:30 | XMS_ITS | Encounter Summary ---
Author Organization [employer] Address [address] [facility] [address] [place] [address] Care Team Providers Care Occupational Health Nurse Name Role Phone Willy Soha DOWNEY Primary Care Provider [phone] Encounter Details Date Type Department Care Team [...] Description 10/18/2024 9:15 AM EDT Office Visit [facility] [address] [place] [address] Soha Aguilera ANP [address] [place] [address] documented as of this encounter Visit Diagnoses Not on filedocumented in this encounter Additional Health Concerns Assessment Noted Time PHQ-9 Depression Total Score: 16 025 3:25 PM EST documented as of this encounter Care Teams Occupational Health Nurse Relationship Specialty Start Date End Date Soha Aguilera ANP [address] [place] [address] PCP - General Family Medicine 11/08/19 documented as of this encounter
--- OUTSIDE RECORDS SUMMARY | 2024-07-25 19:30 | XMS_ITS | Clinical Summary ---
Author Organization [email or web address] Address [address] [place] [address] 7[address] [place] [address] Care Team Providers Care Cardiopulmonary Supervisor Name Role Phone Willy Inocencio DOWNEY Primary Care Provider [phone] Allergies No known active allergies Medications * [...] time. Active ergocalciferol (Vitamin D-2) 1.25 MG (18600 UT) capsule take 1 capsule ([id number]) by oral route ONCE A WEEK for [...] Encounters Date Type Department Care Team Description 07/25/2024 11:15 AM EST Office Visit [address] [address] Milagro Pinzon NP Dysuria (Primary Dx); Abnormal urinalysis 07/25/2024 Travel 07/24/[address] [address] Inocencio Cassidy ANP Nurse Triage 07/23/[address] [address] Inocencio Cassidy ANP Med Refill 07/19/2024 2:15 PM EST Office Visit [address] [address] Inocencio Cassidy ANP History of pneumonia (Primary Dx); Shortness of breath; Seborrheic dermatitis of scalp; Easy bruising 07/19/2024 Travel 07/16/[address] [address] Inocencio Cassidy ANP Chart Prep 07/06/2024 Patient Outreach [address] [address] Inocencio Cassidy ANP Pre-visit Planning ([facility] screening was completed on 06/14/2024) 07/03/2024 10:00 AM EST Office Visit [facility] [address] [place] [phone] Carla Ceballos MD Strep pharyngitis (Primary Dx); Sore throat 06/27/[address] [facility] [address] [place] [address] Cherelle Rios MA chart prep 06/15/[address] [facility] [address] [place] [address] Inocencio Cassidy ANP Rash 06/14/2024 Patient Outreach [address] [address] Inocencio Cassidy ANP Care Coordination ([facility] outreach for SDOH PT-1 and food needs- LVM ) 06/14/2024 Patient Outreach [address] [address] Inocencio Cassidy ANP Pre-visit Planning (SDOH Screening positive and Tobacco screening negative) 06/12/2024 1:45 PM EST Office Visit 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 [address] [place] [address] Audrey Honeycutt MA February recall 05/02/2024 10:00 AM EST Office Visit [facility] [address] [place] [address] Keila Rowell, OD Lattice degeneration of left retina (Primary Dx); Regular astigmatism of both eyes 05/02/2024 Travel from Last 3 Months Immunizations Name Administration [...] Sign Reading Time Taken Comments Blood Pressure 129/83 07/25/2024 11:34 AM EST Pulse 72 07/25/2024 11:34 AM EST Temperature 37.1 ??C (98.7 ??F) 07/25/2024 11:[address] Respiratory Rate 18 07/25/2024 11:34 AM EST Oxygen Saturation 98% 07/25/2024 11:34 AM EST Inhaled Oxygen Concentration - - Weight 83.3 kg (183 lb 9.6 oz) 07/25/2024 11:34 AM EST Height 162.6 cm (5' 4 ) 07/25/2024 11:34 AM EST Body Mass Index 31.51 07/25/2024 11:34 AM EST Plan of Treatment Upcoming Encounters Date Type Department Care Team (Late st Contact Info) Description 10/18/2024 9:15 AM EDT Office Visit [facility] [address] [place] [address] Inocencio Cassidy ANP [address] [place] [address] Health Maintenance Due Date Last Done Comments Family Planning (PISQ) 2005 COVID-19 Vaccine ( season) 2024 06/24/2022, 10/01/2020, 09/03/2020 Depression Monitoring (PHQ-9) 01/16/2025 07/19/2024, 07/19/2024 SDOH Screening 06/14/2025 06/14/2024 Alcohol/Substance Use Screening 07/19/2025 07/19/2024 Depression Screening 07/19/2025 07/19/2024, 07/19/19 Tobacco Screening 07/25/2025 07/25/2024 DTaP/Tdap/Td Vaccines (10 - Td or Tdap) [...] Name Priority Date/Time Associated Diagnosis Comments POCT URINALYSIS DIPSTICK Routine 07/25/2024 11:52 AM EST Dysuria XR CHEST 2 VIEWS Routine 07/23/2024 2:10 [...] Relevant to Health Maintenance Results * (ABNORMAL) POCT Urinalysis (07/25/2024 11:52 AM EST) Color, UA Yellow Clarity, UA Clear Glucose, UA Negative Bilirubin, UA Negative Ketones, UA Negative Spec Grav, UA 1.030 Blood, UA Positive(A) Negative, None Detected Comment:trace-lysed pH, UA 6.5 Protein, UA Trace Comment:30mg/dl Urobilinogen, UA 0.2 Leukocytes, UA Trace Negative, Rare, Trace Comment:small Nitrite, UA Negative Negative, None Detected Appearance, UA clear QC Media Lot # [id number] Lot# Expiration Date [id number] Urine 07/25/2024 11:5 2 AM EST us Milagro Pinzon FOOD STOREROOM CLERK POINT OF CARE TEST ENTER/EDIT O RDERABLES Final Result * XR Chest 2 Views (07/23/2024 2:10 PM EST) Anatomical Region Laterality Modality Chest Radiographic Batsheva ging 07/23/2024 2:10 PM EST Narrative 07/23/2024 3:40 PM EST ?[facility] ?[address] ?[place] [address] ?XRay Report ? Signed ? Patient: Nancy Johnson ?MR#: ?? [id number] ? : 1990 ?Acct:[id number] ? Age/Sex: 34 / F ?ADM Date: 07/23/24 ? Loc: HO.HHCX ? Attending Dr: Inocencio Cassidy NP ? Ordering Physician: INOCENCIO CASSIDY NP ?? Date of Service: 07/23/24 ?? Procedure(s): XR chest 2V ?? Accession Number(s): [id number] ? cc: INOCENCIO CASSIDY NP ? EXAMINATION: [...] DD/ 1410 ? TD/TT: 07/23/24 1419 ? Industrial Gas Service Helper: MSM ? Procedure Note Ramo, Image - 07/23/[address] [address] XRay Report Signed Patient: Lamin JohnsonPamela#: [id number] : 1990Acct:[id number] Age/Sex: 34 / FADM Date: 07/23/24 Loc: HO.HHCX Attending Dr: Inocencio Cassidy FOOD STOREROOM CLERK Ordering Physician: INOCENCIO CASSIDY NP Date of Service: 07/23/24 Procedure(s): XR chest 2V Accession Number(s): [id number] cc: INOCENCIO CASSIDY NP EXAMINATION: XR CHEST CLINICAL INFORMATION: h/o PNA 03/2024, ongoing SOB COMPARISON: None available. TECHNIQUE: 2 views of the chest were obtained. FINDINGS: No significant abnormality is noted involving the heart, lungs, mediastinum, bony thorax or soft tissues. XR/XR chest 2V IMPRESSION: Unremarkable chest examination. Electronically signed by: Alfred Carmona MD 07/23/2024 03:37 PM EST RP Dictated By: Alfred Carmona MD Signed By: <Electronically signed by Alfred Carmona MD in OV> 07/23/24 1537 DD/ 1410 TD/TT: 07/23/24 1419 Industrial [employer] Service Helper: DAVEY Inocencio Cassidy ANP IMG XR PROCEDURES Final Result * (ABNORMAL) CBC auto differential (07/19/2024 3:28 PM EST) White Blood Count 5.7 4.8 - 10.8 X10*3/uL [facility] Red Blood Count 4.48 4.20 - 5.50 X10*6/uL [facility] Hemoglobin 13.4 12.0 - 16.0 g/dl [facility] Hematocrit 38.4 37.0 - 47.0 % [facility] Mean Corpuscular Volume 85.7 80.0 - 98.0 fL [facility] Mean Corpuscular Hemoglobin 29.9 27.0 - 33.0 pg [facility] Mean Corpuscular HGB Conc 34.9 31.0 - 35.0 g/dl [facility] Red Cell Distribution Width 12.7 11.0 - 16.0 % [facility] Platelet Count 278 160 - 400 X10*3/uL [facility] Mean Platelet Volume 9.6 9.4 - 12.3 fL [facility] Neutrophils Percent Auto 50.8 45 - 73 % [facility] Imm Gran Pct Auto 0.2 0.0 - 0.4 % [facility] Lymphocytes Percent Auto 35.6 20 - 40 % [facility] Monocytes Percent Auto 7.4 2 - 11 % [facility] Eosinophils Percent Auto 4.9(H) 0 - 4 % [facility] Basophils Percent Auto 1.1 0 - 2 % [facility] NRBC Pct Auto 0.0 0.0 - 0.2 /100WBC [facility] Neutrophils Absolute Auto 2.9 2.0 - 8.3 x10*3/uL [facility] Imm Gran Abs Auto 0.01 0.00 - 0.03 X10*3/uL [facility] Lymphocytes Absolute Auto 2.0 1.2 - 4.9 X10*3/uL [facility] Monocytes Absolute Auto 0.4 0.1 - 1.2 X10*3/uL [facility] Eosinophils Absolute Auto 0.3 0.0 - 0.4 X10*3/uL [facility] Basophils Absolute Auto 0.1 0.0 - 0.2 X10*3/uL [facility] NRBC Abs Auto 0.000 0.0 - 0.012 X10*3/uL [facility] Blood Venous blood specimen / Unknown 07/19/2024 3:28 PM EST 07/19/2024 4:04 PM EST Inocencio Cassidy [facility] LAB BLOOD ORDERABLES Final Resul t [facility] [address] [place] [phone] * Iron And Total Iron Binding Capacity (07/19/2024 3:28 PM EST) Iron 130 30 - 160 mcg/dL [facility] Total Iron Binding Capacity 300 228 - 428 mcg/dL [facility] Percent Iron Saturation 43 15 - 50 % [facility] Unsaturated Iron Binding 170 ug/dL [facility] Blood Venous blood specimen / Unknown 07/19/2024 3:28 PM EST 07/19/2024 4:04 PM EST Inocencio DOWNEY LAB BLOOD ORDERABLES Final Resul t Performing Organization Address [facility] Co de Phone Number [facility] [address] [place] [phone] * Influenza B (ID NOW Rapid Molecular) (07/03/2024 10:28 AM EST) [facility] Influenza B Negative Negative, Indeterminate [facility] Swab 07/03/2024 10:2 8 AM EST Result [facility] Carla Ceballos MD POINT OF CARE TEST ENTER/E DIT ORDERABLES Final Result Performing Organization Address [facility] Co de Phone Number [facility] [address] [place] [phone] * Influenza A (ID NOW Rapid Molecular) (07/03/2024 10:28 AM EST) [facility] Influenza A Negative Negative, Indeterminate [facility] Swab 07/03/2024 10:2 8 AM EST Result [facility] Carla Ceballos MD POINT OF CARE TEST ENTER/E DIT ORDERABLES Final Result Performing Organization Address [facility] Co de Phone Number [facility] [address] [place] [phone] * POCT Rapid COVID Ag (07/03/2024 10:28 AM EST) [facility] Rapid COVID Ag Negative Swab 07/03/2024 10:2 8 AM EST Result [facility] Carla Ceballos MD POINT OF CARE TEST ENTER/E DIT ORDERABLES Final Result * (ABNORMAL) POCT rapid strep A manually resulted (07/03/2024 10:28 AM EST) [facility] Rapid Strep A Screen Positive( A) Negative, None Detected Swab 07/03/2024 10:2 8 AM EST Carla Ceballos MD POINT OF CARE TEST ENTER/E DIT ORDERABLES Final Result * Hepatitis C Antibody with Reflex to HCV, RNA, Quantitative, Real-Time PCR (06/16/2023 10:36 AM EST) [facility] Hepatitis C Antibody Nonreactive Nonreactive [facility] Comment:Antibodies to HCV no t detected; does not exclude early acuteHCV infection. Blood Venous blood specimen / Unknown 06/16/2023 10:36 AM EST 06/16/2023 11:36 AM EST Inocencio DOWNEY LAB BLOOD ORDERABLES Final Resul t [facility] [address] [place] [phone] * HIV-1/2 Antigen and Antibodies, Fourth Generation, with Reflexes (06/16/2023 10:36 AM EST) [facility] HIV AB/AG Nonreactive Nonreactive [facility] Comment:HIV-1 p24 Ag and/or HIV-1/HIV-2 Ab not detected.A test result that is nonreactive does not exclude thepossibility of exposure to or infection with HIV-1 and/orHIV-2. Nonreactive results in this assay for individualswith prior exposure to HIV-1 and/or HIV-2 may be due toantigen and antibody levels that are below the limit ofdetection of this assay.[employer] HIV Ag/Ab Combo assay result andsupplemental assay results should be interpreted inconjunction with the patient's clinical presentation,history and other laboratory results. If the results areinconsistent with clinical evidence, additional testing issuggested to confirm the result. Blood Venous blood specimen / Unknown 06/16/2023 10:36 AM EST 06/16/2023 11:36 AM EST us Inocencio DOWNEY LAB BLOOD ORDERABLES Final Resul t [facility] [address] [place] [address] [phone] from Last 3 Months or Most Recently Relevant to Health Maintenance Insurance [employer] Care Teams Cardiopulmonary Supervisor Relationship Specialty Start Date End Date Inocencio Cassidy ANP [address] [place] [phone] PCP - General Family Medicine 11/08/19
--- OUTSIDE RECORDS SUMMARY | 2024-07-25 19:30 | XMS_ITS | Encounter Summary ---
Author Organization [employer] Address [address] [facility] 7[address] [place] [address] Care Team Providers Care Hot Die Picker Name Role Phone Soha Aguilera Primary Care Provider [phone] Reason for Referral * Imaging (Routine) - Closed Specialty Diagnoses / Procedures Referred By Contashley t Referred To Contact Radiology Diagnoses Abdominal wall mass Procedures US ABDOMINAL WALL, SOFT TISSUE RIGHT Ana Laura Montelongo FNP [address] [place] [address] Phone: tel: fax: [facility] [address] [facility], [address] [place] [address] Phone: tel: fax: Referral ID Status Reason Start Date Expiration Date Visits Re quested Visits Authorized [id number] Closed 09/02/2023 09/01/2024 1 1 Encounter Details Date Type Department Care Team (Late st Contact Info) Description 09/02/2023 Orders Only [facility] [address] [place], [place] [phone] Ana Laura Montelongo FNP [address] [place], [place] [phone] Abdominal wall mass (Primary Dx) Social History [...] Description 10/18/2024 9:15 AM EDT Office Visit [facility] [address] [place] [address] Soha Aguilera ANP [address] [place] [address] Scheduled Orders Name Type Priority Associated Diagnoses Orde r Schedule US ABDOMINAL WALL, SOFT TISSUE RIGHT Imaging Routine Abdominal wall mass Expected: 09/02/2023, Expires: 09/01/2024 documented as of this encounter Visit Diagnoses Diagnosis Abdominal wall mass- Primary Abdominal or pelvic swelling, mass or lump, unspecified site documented in this encounter Care Teams Hot Die Picker Relationship Specialty Start Date End Date Soha Aguilera ANP [address] [place] [phone] PCP - General Family Medicine 11/08/19 documented as of this encounter
--- OUTSIDE RECORDS SUMMARY | 2024-07-25 19:30 | XMS_ITS | Encounter Summary ---
Author Organization [employer] Address [address] [facility] 7[address] [place] [address] Care Team Providers Care Clinical Statistics Manager Name Role Phone Willy Soha DOWNEY Primary Care Provider [phone] Encounter Details Date Type Department Care Team (Latest Contact Info) Description 07/25/2024 Travel Social History Tobacco Use Types Packs/Day [...] Description 10/18/2024 9:15 AM EDT Office Visit [facility] [address] [place] [address] Soha Aguilera ANP [address] [place] [address] documented as of this encounter Visit Diagnoses Not on filedocumented in this encounter Additional Health Concerns Assessment Noted Time PHQ-9 Depression Total Score: 16 025 3:25 PM EST documented as of this encounter Care Teams Clinical Statistics Manager Relationship Specialty Start Date End Date Soha Aguilera ANP [address] [place] [address] PCP - General Family Medicine 11/08/19 documented as of this encounter
--- OUTSIDE RECORDS SUMMARY | 2024-07-25 19:30 | XMS_ITS | Encounter Summary ---
Author Organization [employer] Address [address] [place] [address] 7t [place] [address] Care Team Providers Care Stroke Program Coordinator Name Role Phone Soha Aguilera Primary Care Provider [phone] Reason for Visit * Reason Comments sick onsite Encounter Details Date Type Department Care Team ([facility] st Contact Info) Description 07/25/2024 11:15 AM EST Office Visit [facility] MEDICINE [address] [place], [place] [phone] Milagro Pinzon NP [address] [place], [place] [phone] Dysuria (Primary Dx); Abnormal urinalysis Social History Tobacco Use Types Packs/Day Years [...] Mass Index 31.51 07/25/2024 11:34 AM EST documented in this encounter Progress Notes * Milagro Pinzon NP - 07/25/2024 11:15 AM EST SUBJECTIVE: Nancy Friend is a 34 y.o. female presents for sick visit. Complains of urinary burning HPI: Nancy complains of burning sensation present during urination that lingers for a bit afterwards aswell, increased frequency, and slightly malodorous urine in the morning. She's noticed some pinkishstain on toilet paper after wiping but none visible urine. Denies vaginal discharge, itching, flankpain, or fevers. Has not tried anything for her symptoms. Review of Systems Constitutional: Negative. Negative for chills and fever. Respiratory: Negative for chest tightness and shortness of breath. Cardiovascular: Negative for chest pain. Gastrointestinal: Negative for abdominal pain, constipation, diarrhea and nausea. Genitourinary: Positive for dysuria and frequency. Negative for difficulty urinating, flank pain, hematuria, pelvic pain, vaginal bleeding and vaginal discharge. Musculoskeletal: Negative for arthralgias, back pain, myalgias and neck pain. Skin: Negative. Negative for rash and wound. Neurological: Negative for weakness, light-headedness and headaches. Psychiatric/Behavioral: Negative for behavioral problems, confusion, decreased concentration and suicidal ideas. OBJECTIVE: Visit Vitals BP 129/83 (BP Location: Right arm, Patient Position: Sitting, BP Cuff Size: Adult) Pulse 72 Temp 98.7 ??F (37.1 ??C) (Oral) Resp 18 Ht 5' 4 (1.626 m) Wt 183 lb 9.6 oz (83.3 kg) SpO2 98% BMI 31.51 kg/m?? OB Status Hysterectomy Smoking Status Never BSA 1.94 m?? Patient Active Problem List Diagnosis Atopic dermatitis Chronic constipation Cyst of ovary Chronic gastritis Pain in female pelvis Seborrheic dermatitis of scalp Intractable migraine without aura and without status migrainosus Candidal vulvovaginitis Strep pharyngitis Shortness of breath Current Outpatient Medications: acetaminophen (Tylenol 8 Hour) 650 MG ER tablet, Take 1 tablet by mouth in the morning and 1 tabletat noon and 1 tablet in the evening., Disp: , Rfl: amitriptyline (Elavil) 25 MG tablet, Take 1 tablet (25 mg) by mouth at bedtime., Disp: 90 tablet, Rfl: 0 amoxicillin (Amoxil) 500 MG capsule, Take 1 tab po bid for 10 days, Disp: 20 capsule, Rfl: 0 nlimjlg-nvhgpcdpbrprz-gthzgqfg (Pain Reliever Plus) 250-250-65 MG tablet, TAKE 1 TABLET BY MOUTH EVERY 8 HOURS NEEDED FOR HEADACHE, Disp: 30 tablet, Rfl: 1 baclofen (Lioresal) 10 MG tablet, TAKE 1 TABLET BY MOUTH THREE TIMES DAILY NEEDED FOR MUSCLE SPASMS (NECK), Disp: 30 tablet, Rfl: 1 betamethasone valerate (Valisone) 0.1 % cream, Apply topically 2 times daily., Disp: 30 g, Rfl: 0 budesonide-formoterol (Symbicort) 80-4.5 MCG/ACT inhaler, Inhale 2 puffs every 4-6 hours as needed for cough and wheeezing, Disp: 1 each, Rfl: 11 diphenhydrAMINE (BENADryl) 25 MG capsule, Take 1 capsule (25 mg) by mouth every 4 (four) hours if needed for sleep. (Patient not taking: Reported on 05/02/2024), Disp: 30 capsule, Rfl: 0 docusate sodium (Colace) 100 MG capsule, Take 1 capsule by mouth at bed time., Disp: , Rfl: ergocalciferol (Vitamin D-2) 1.25 MG (64226 UT) capsule, take 1 capsule (58149COIPT) by oral route ONCE A WEEK for 8 weeks, Disp: , Rfl: ferrous sulfate 325 (65 Fe) MG tablet, take 1 tablet by oral every other day, Disp: , Rfl: Fluocinolone Acetonide Scalp 0.01 % oil, Apply in evening, wash off in AM, 3x/wk, Disp: 118.28 mL, Rfl: 2 Ketoconazole (Nizoral A-D) 1 % shampoo, APPLY TO DAMP SCALP, LATHER, AND RINSE EVERY 3 DAYS DIRECTED (Patient not taking: Reported on 06/16/2023), Disp: 200 mL, Rfl: 11 pantoprazole (ProtoNix) 40 MG EC tablet, Take 1 tablet by mouth at bed time., Disp: , Rfl: sennosides (Senokot) 8.6 MG tablet, take 2 tablet by oral route every day as needed for constipation, Disp: , Rfl: triamcinolone (Kenalog) 0.1 % ointment, APPLY TOPICALLY TO AFFECTED AREA(S) TWICE DAILY, Disp: 30 g, Rfl: 1 Office Visit on 07/25/2024 Component Date Value Ref Range Status Color, UA 07/25/2024 Yellow Final Clarity, UA 07/25/2024 Clear Final Glucose, UA 07/25/2024 Negative Final Bilirubin, UA 07/25/2024 Negative Final Ketones, UA 07/25/2024 Negative Final Spec Grav, UA 07/25/2024 1.030 Final Blood, UA 07/25/2024 Positive (A) Negative, None Detected Final trace-lysed pH, UA 07/25/2024 6.5 Final Protein, UA 07/25/2024 Trace Final 30mg/dl Urobilinogen, UA 07/25/2024 0.2 Final Leukocytes, UA 07/25/2024 Trace Negative, Rare, Trace Final small Nitrite, UA 07/25/2024 Negative Negative, None Detected Final Appearance, UA 07/25/2024 clear Final QC Media Lot # 07/25/2024 [id number] Final Lot# Expiration Date 07/25/2024 113,025 Final Physical Exam Vitals reviewed. Constitutional: General: She is not in acute distress. Appearance: Normal appearance. She is not ill-appearing. HENT: Head: Normocephalic and atraumatic. Right Ear: External ear normal. Left Ear: External ear normal. Nose: Nose normal. Eyes: General: No scleral icterus. Extraocular Movements: Extraocular movements intact. Cardiovascular: Rate and Rhythm: Normal rate and regular rhythm. Pulses: Normal pulses. Heart sounds: Normal heart sounds. Pulmonary: Effort: Pulmonary effort is normal. No respiratory distress. Breath sounds: Normal breath sounds. Abdominal: Tenderness: There is no right CVA tenderness or left CVA tenderness. Musculoskeletal: General: Normal range of motion. Cervical back: Normal range of motion. Neurological: General: No focal deficit present. Mental Status: She is alert and oriented to person, place, and time. Gait: Gait normal. Psychiatric: Mood and Affect: Mood normal. Behavior: Behavior normal. Current Outpatient Medications Medication Sig Dispense Refill acetaminophen (Tylenol 8 Hour) 650 MG ER tablet Take 1 tablet by mouth in the morning and 1 tablet at noon and 1 tablet in the evening. amitriptyline (Elavil) 25 MG tablet Take 1 tablet (25 mg) by mouth at bedtime. 90 tablet 0 amoxicillin (Amoxil) 500 MG capsule Take 1 tab po bid for 10 days 20 capsule 0 nmsrwpd-svrigpkfuwzsd-unjdisfs (Pain Reliever Plus) 250-250-65 MG tablet TAKE 1 TABLET BY MOUTH EVERY 8 HOURS NEEDED FOR HEADACHE 30 tablet 1 baclofen (Lioresal) 10 MG tablet TAKE 1 TABLET BY MOUTH THREE TIMES DAILY NEEDED FOR MUSCLE SPASMS (NECK) 30 tablet 1 betamethasone valerate (Valisone) 0.1 % cream Apply topically 2 times daily. 30 g 0 budesonide-formoterol (Symbicort) 80-4.5 MCG/ACT inhaler Inhale 2 puffs every 4- 6 hours as needed for cough and wheeezing 1 each 11 diphenhydrAMINE (BENADryl) 25 MG capsule Take 1 capsule (25 mg) by mouth every 4 (four) hours if needed for sleep. (Patient not taking: Reported on 05/02/2024) 30 capsule 0 docusate sodium (Colace) 100 MG capsule Take 1 capsule by mouth at bed time. ergocalciferol (Vitamin D-2) 1.25 MG (93221 UT) capsule take 1 capsule (78692ZFZUG) by oral route ONCE A WEEK for 8 weeks ferrous sulfate 325 (65 Fe) MG tablet take 1 tablet by oral every other day Fluocinolone Acetonide Scalp 0.01 % oil Apply in evening, wash off in AM, 3x/wk 118.28 mL 2 Ketoconazole (Nizoral A-D) 1 % shampoo APPLY TO DAMP SCALP, LATHER, AND RINSE EVERY 3 DAYS DIRECTED (Patient not taking: Reported on 06/16/2023) 200 mL 11 pantoprazole (ProtoNix) 40 MG EC tablet Take 1 tablet by mouth at bed time. sennosides (Senokot) 8.6 MG tablet take 2 tablet by oral route every day as needed for constipation triamcinolone (Kenalog) 0.1 % ointment APPLY TOPICALLY TO AFFECTED AREA(S) TWICE DAILY 30 g 1 No current facility-administered medications for this visit. Assessment/Plan Diagnoses and all orders for this visit: Dysuria Comments: -POCT urinalysis negative for nitrites, trace leukocytes, increased specific gravity -urine sent out for culture -Discussed symptomatic management while awaiting culture results: which includes increase water intake, and pure cranberry juice consumption, take Tylenol for pain -patient re-educated on feminine cleansing techniques -Return and emergency precautions reviewed -Will call with results Orders: - POCT Urinalysis - Culture, Urine, Routine; Future Abnormal urinalysis Comments: -Results as noted above -Likely related to acute symptoms -Repeat testing and workup as necessary at follow-up with PCP Visit Conducted in: Slovak Translation by: Provided by [facility] staff member Bruno Schmitt , documented in this encounter Plan of Treatment Upcoming Encounters Date Type Department Care Team (Late st Contact Info) Description 10/18/2024 9:15 AM EDT Office Visit [facility] MED[facility]INE [address] [place] [address] Soha Aguilera ANP [address] [place] [address] Scheduled Orders Name Type Priority Associated Diagnoses Orde r Schedule Culture, Urine, Routine Microbiology Routine Dysuria Expected: 07/25/2024 (Approximate), Expires: 07/25/2025 documented as of this encounter Procedures Procedure Name Priority Date/Time Associated Diagnosis Comments POCT URINALYSIS DIPSTICK Routine 07/25/2024 11:52 AM EST Dysuria documented in this encounter Results * (ABNORMAL) POCT Urinalysis (07/25/2024 11:52 [...] Media Lot # [id number] Lot# Expiration Date 113 Urine 07/25/2024 11:5 2 AM EST Milagro Pinzon NP POINT OF CARE TEST ENTER/EDIT O RDERABLES Final Result documented in this encounter Visit Diagnoses Diagnosis Dysuria- Primary Abnormal urinalysis Other nonspecific finding on examination of urine documented in this encounter Additional Health Concerns Assessment Noted Time PHQ-9 Depression Total Score: 16 07/19/ 025 3:25 PM EST documented as of this encounter Care Teams Stroke Program Coordinator Relationship Specialty Start Date End Date Soha Aguilera ANP [address] [place] [address] PCP - General Family Medicine 11/08/19 documented as of this encounter
--- OUTSIDE RECORDS SUMMARY | 2024-07-25 19:30 | XMS_ITS | Encounter Summary ---
Author Organization [employer] Address [address] [facility] 7 [place] [address] Care Team Providers Care Senior Account Manager Name Role Phone Soha Aguilera Primary Care Provider [phone] Reason for Visit * Reason Onset Date Comments Chart Prep 07/16/2024 Encounter Details Date Type Department Care Team ([facility] st Contact Info) Description 07/16/2024 Telephone [facility] MEDICINE [address] [place], [place] [phone] Soha Aguilera ANP [address] [place] [address] Chart Prep Social History Tobacco Use Types [...] Description 10/18/2024 9:15 AM EDT Office Visit [facility] [address] [place] [address] Soha Aguilera ANP [address] [place] [address] documented as of this encounter Visit Diagnoses Not on filedocumented in this encounter Additional Health Concerns Assessment Noted Time PHQ-9 Depression Total Score: 19 024 10:19 AM EDT documented as of this encounter Care Teams Senior Account Manager Relationship Specialty Start Date End Date Soha Aguilera ANP [address] [place] [address] PCP - General Family Medicine 11/08/19 documented as of this encounter
--- OUTSIDE RECORDS SUMMARY | 2024-07-25 19:30 | XMS_ITS | Encounter Summary ---
Author Organization [employer] Address [address] [facility] 7t [place] [address] Care Team Providers Care Distributed Generation Project Manager Name Role Phone Soha Aguilera Primary Care Provider [phone] Reason for Visit * Reason Onset Date Comments [facility] 08/31/2023 Encounter Details Date Type Department Care Team ([facility] st Contact Info) Description 08/31/[address] [facility] MEDICINE [address] [place], [place] [phone] Soha Aguilera ANP [address] [place] [address] [facility] Social History Tobacco Use Types [...] AM EDT Walk in from Jorge Rodriguez Flexo Operator with [facility] [phone] stating order for US ABD complete needs [...] Description 10/18/2024 9:15 AM EDT Office Visit [facility] MED[facility]INE [address] [place] [address] Soha Aguilera ANP [address] [place] [address] documented as of this encounter Visit Diagnoses Not on filedocumented in this encounter Care Teams Distributed Generation Project Manager Relationship Specialty Start Date End Date Soha Aguilera ANP [address] [place] [address] PCP - General Family Medicine 11/08/19 documented as of this encounter
--- OUTSIDE RECORDS SUMMARY | 2024-07-25 19:30 | XMS_ITS | Encounter Summary ---
Author Organization [employer] [facility] Address [address] [place] [address] [address]t [place] [address] Care Team Providers Care Speech Writer Name Role Phone Soha Aguilera Primary Care Provider [phone] Encounter Details Date Type Department Care Team (Late st Contact Info) Description 06/11/2022 Orders Only [facility] MEDICINE [address] [place] [phone] Mary Ellen Ordaz LPN Social History Tobacco [...] Office Visit [facility] MEDICINE [address] [place] [address] Soha Aguilera ANP [address] [place] [address] documented as of this encounter Visit Diagnoses Not on filedocumented in this encounter Care Teams Speech Writer Relationship Specialty Start Date End Date Soha Aguilera ANP [address] [place] [address] PCP - General Family Medicine 11/08/19 documented as of this encounter
--- OUTSIDE RECORDS SUMMARY | 2024-07-25 19:30 | XMS_ITS | Encounter Summary ---
Author Organization [employer] Address [address] [place] [address], [place] [address] Care Team Providers Care Roundhouse Supervisor Name Role Phone Soha Aguilera Primary Care Provider [phone] Reason for Visit * Reason Comments Pre-visit Planning SDOH screening was c ompleted on 06/14/2024 Encounter Details Date Type Department Care Team ([facility] Contact Info) Description 07/06/2024 Patient Outreach [facility] MEDICINE [address] [place], [place] [phone] Soha Aguilera ANP [address] [place] [address] Pre-visit Planning (SDOH screening was completed on [...] Description 10/18/2024 9:15 AM EDT Office Visit [facility] [address] [place] [address] Soha Aguilera ANP [address] [place] [address] documented as of this encounter Visit Diagnoses Not on filedocumented in this encounter Additional Health Concerns Assessment Noted Time PHQ-9 Depression Total Score: 19 024 10:19 AM EDT documented as of this encounter Care Teams Roundhouse Supervisor Relationship Specialty Start Date End Date Soha Aguilera ANP [address] [place] [address] PCP - General Family Medicine 11/08/19 documented as of this encounter
--- OUTSIDE RECORDS SUMMARY | 2024-07-25 19:30 | XMS_ITS | Encounter Summary ---
Author Organization [employer] Address [address] [facility] 7 [place] [address] Care Team Providers Care Medication Nurse Name Role Phone Soha Aguilera Primary Care Provider [phone] Reason for Visit * Reason Onset Date Comments Nurse Triage 07/24/2024 Encounter Details Date Type Department Care Team ([facility] st Contact Info) Description 07/24/2024 Telephone [facility] MEDICINE [address] [place], [place] [phone] Soha Aguilera ANP [address] [place] [address] Nurse Triage Social History Tobacco Use Types Packs/Day Years [...] encounter Miscellaneous Notes * Telephone Encounter - Madison Degroot RN - 07/24/2024 2:32 PM EST called pt to triage, spoke to pt. through [employer]. pt states several days duration of urinary burning, dark yellow urine, mild low back pain, and small drops of blood on paper when wiping. pt denies known fevers, severe bleeding, severe pain, or other associated symptoms. given appt with blue team provider tomorrow at 11:15 for exam. advised home care: rest, fluids, and call back if worsening or new concerns. pt understands and agrees with plan. insurance verified. Protocol Used: Urinary Symptoms (Adult) Protocol-Based Disposition: See in Office or Video Visit Today or Tomorrow Video visit offer not recorded Positive Triage Question: * Patient wants to be seen * All higher-acuity triage questions were negative Care Advice Discussed: * Reasons To Call Back - Fever occurs - Pain or burning with urination - Unable to urinate and bladder feels full - You become worse * Telephone Encounter - Susana Shaw - 07/24/2024 1:56 PM EST Symptom: Urination Pain Outcome: Schedule an urgent appointment (within 1 hour) or talk to a nurse or provider soon Reason: Blood in urine (pt states when cleaning) The caller accepted this outcome. [phone] documented in this encounter Plan of Treatment Upcoming Encounters Date Type Department Care Team (Late st Contact Info) Description 10/18/2024 9:15 AM EDT Office Visit [facility] MEDICINE [address] [place] [address] Soha Aguilera ANP [address] [place] [address] documented as of this encounter Visit Diagnoses Not on filedocumented in this encounter Additional Health Concerns Assessment Noted Time PHQ-9 Depression Total Score: 16 07/19/ 025 3:25 PM EST documented as of this encounter Care Teams Medication Nurse Relationship Specialty Start Date End Date Soha Aguilera ANP [address] [place] [address] PCP - General Family Medicine 11/08/19 documented as of this encounter
--- OUTSIDE RECORDS SUMMARY | 2024-07-25 19:30 | XMS_ITS | Encounter Summary ---
Author Organization [employer] Address [address] [facility] 7t [place] [address] Care Team Providers Care Customer Service Teller Name Role Phone Soha Aguilera Primary Care Provider [phone] Reason for Visit * Reason Onset Date Comments Results 09/26/2023 Encounter Details Date Type Department Care Team ([facility] st Contact Info) Description 09/26/2023 Telephone [facility] MEDICINE [address] [place], [place] [phone] Soha Aguilera ANP [address] [place] [address] Results Social History Tobacco Use Types Packs/Day Years Used Date Smoking Tobacco: Never Passive Smoke Exposure: Never Smokeless Tobacco: Never Alcohol Use Standard Drinks/Week Comments Yes 0 (1 standard drink = 0.6 oz pur e alcohol) Occasionnally Housing Stability Answer Date Recorded What is your housing situation today? I have marisabel bradhsaw 03/21/[address] you li [...] 10/18/2024 9:15 AM EDT Office Visit [facility] MEDICINE [address] [place] [address] Soha Aguilera ANP [address] [place] [address] documented as of this encounter Visit Diagnoses Not on filedocumented in this encounter Care Teams Customer Service Teller Relationship Specialty Start Date End Date Soha Aguilera ANP [address] [place] [address] PCP - General Family Medicine 11/08/19 documented as of this encounter
== END 2024-07-25 17:27 | disposition home or self-care (01) ==
LOC: HO.HHCLNP 17:26
PROVIDERS: Visit Provider Nurse Practitioner
DX: R30.0 Dysuria (principal)
CPT/HCPCS: 87086; 87088; 87186

== ENCOUNTER 2024-10-04 09:17 | Outpatient (REF) | payer MEDICAID, SELFPAY ==
--- OUTSIDE RECORDS SUMMARY | 2024-10-04 09:53 | XMS_ITS | Encounter Summary ---
Author Organization [employer] Address [address] [place] [address] 7t [place] [address] Care Team Providers Care Filler Feeder Name Role Phone Soha Aguilera Primary Care Provider [phone] Encounter Details Date Type Department Care Team (Late st Contact Info) Description 06/11/2022 Orders Only [facility] MEDICINE [address] [place] [phone] Mary Ellen Ordaz LPN Social History Tobacco [...] 10/18/2024 9:15 AM EDT Office Visit [facility] MEDICINE [address] [place] [address] Soha Aguilera ANP [address] [place] [address] documented as of this encounter Visit Diagnoses Not on filedocumented in this encounter Care Teams Filler Feeder Relationship Specialty Start Date End Date Soha Aguilera ANP [address] [place] [address] PCP - General Family Medicine 11/08/19 documented as of this encounter
--- OUTSIDE RECORDS SUMMARY | 2024-10-04 09:53 | XMS_ITS | Encounter Summary ---
Author Organization [employer] Address [address] [facility] 7t [place] [address] Care Team Providers Care Cattle Trader Name Role Phone Soha Aguilera Primary Care Provider [phone] Reason for Visit * Reason Onset Date Comments [facility] 08/31/2023 Encounter Details Date Type Department Care Team ([facility] st Contact Info) Description 08/31/2023 Telephone [facility] MEDICINE [address] [place], [place] [phone] Soha Aguilera ANP [address] [place] [address] [facility] Social History Tobacco Use Types [...] Miscellaneous Notes * Telephone Encounter - Beti Maritnez RN - 09/01/2023 10:21 AM EDT Walk in from Jorge Rodriguez Post Hole Digging Machine Operator with [facility] [phone] stating order for US ABD complete needs [...] Description 10/18/2024 9:15 AM EDT Office Visit [facility] MEDICINE [address] [place] [address] Soha Aguilera ANP [address] [place] [address] documented as of this encounter Visit Diagnoses Not on filedocumented in this encounter Care Teams Cattle Trader Relationship Specialty Start Date End Date Soha Aguilera ANP [address] [place] [address] PCP - General Family Medicine 11/08/19 documented as of this encounter
--- OUTSIDE RECORDS SUMMARY | 2024-10-04 09:53 | XMS_ITS | Encounter Summary ---
Author Organization [employer] Address [address] [facility] 7t [place] [address] Care Team Providers Care Drywall Metal Stud Worker Name Role Phone Soha Aguilera Primary Care Provider [phone] Reason for Visit * Reason Onset Date Comments Appointment Request 04/05/2023 Encounter Details Date Type Department Care Team ([facility] st Contact Info) Description 04/05/[address] [facility] MEDICINE [address] [place], [place] [phone] Soha Aguilera ANP [address] [place] [address] Appointment Request Social History Tobacco Use Types [...] 10/18/2024 9:15 AM EDT Office Visit [facility] MEDICINE [address] [place] [address] Soha Aguilera ANP [address] [place] [address] documented as of this encounter Visit Diagnoses Not on filedocumented in this encounter Care Teams Drywall Metal Stud Worker Relationship Specialty Start Date End Date Soha Aguilera ANP [address] [place] [address] PCP - General Family Medicine 11/08/19 documented as of this encounter
--- OUTSIDE RECORDS SUMMARY | 2024-10-04 09:53 | XMS_ITS | Encounter Summary ---
Author Organization [employer] Address [address] [facility] 7t [place] [address] Care Team Providers Care Ichthyology Teacher Name Role Phone AguileraSoha Primary Care Provider [phone] Encounter Details Date Type Department Care Team (Late st Contact Info) Description 09/02/2023 Orders Only [facility]S [address] [place], [place] [phone] Ana Laura Montelongo FNP [address] [place] [address] Abdominal wall mass (Primary Dx) Social History [...] [facility] MEDICINE [address] [place] [address] Soha Aguilera ANP [address] [place] [address] documented as of this encounter Visit Diagnoses Diagnosis Abdominal wall mass- Primary Abdominal or pelvic swelling, mass or lump, unspecified site documented in this encounter Care Teams Ichthyology Teacher Relationship Specialty Start Date End Date Soha Aguilera ANP [address] [place] [address] PCP - General Family Medicine 11/08/19 documented as of this encounter
--- OUTSIDE RECORDS SUMMARY | 2024-10-04 09:53 | XMS_ITS | Encounter Summary ---
Author Organization [employer] Address [address] [facility] 7t [place] [address] Care Team Providers Care Tableau Lead Name Role Phone Soha Aguilera Primary Care Provider [phone] Reason for Visit * Reason Onset Date Comments Results 09/26/2023 Encounter Details Date Type Department Care Team ([facility] st Contact Info) Description 09/26/2023 Telephone [facility] [address] [place], [place] [phone] Soha Aguilera ANP [address] [place] [address] Results Social History Tobacco Use Types Packs/Day [...] t he electric, gas, oil or water [employer] threatened to shut off services in your [...] Description 10/18/2024 9:15 AM EDT Office Visit [facility] [address] [place] [address] Soha Aguilera ANP [address] [place] [address] documented as of this encounter Visit Diagnoses Not on filedocumented in this encounter Care Teams Tableau Lead Relationship Specialty Start Date End Date Soha Aguilera ANP [address] [place] [address] PCP - General Family Medicine 11/08/19 documented as of this encounter
--- OUTSIDE RECORDS SUMMARY | 2024-10-04 09:53 | XMS_ITS | Clinical Summary ---
Author Organization [employer] Address [address] [facility] 7t [place] [address] Care Team Providers Care Well Point Pumping Supervisor Name Role Phone Willy Inocencio DOWNEY Primary Care Provider [phone] Allergies No known active allergies Medications * This document contains information received from the source organization and may not represent a complete record from that organization. acetaminophen (Tylenol 8 Hour) 650 MG ER tablet Take 1 tablet by mouth in the morning and 1 tablet at noon and 1 tablet in the evening. 9 Active docusate sodium (Colace) 100 MG capsule Take 1 capsule by mouth at bed time. Active ergocalciferol (Vitamin D-2) 1.25 MG (63800 UT) capsule take 1 capsule ([id number]) by oral route ONCE A WEEK for 8 weeks 1 Active ferrous sulfate 325 (65 Fe) MG tablet take 1 tablet by oral every other day 1 Active pantoprazole (ProtoNix) 40 MG EC tablet Take 1 tablet by mouth at bed time. Active sennosides (Senokot) 8.6 MG tablet take 2 tablet by oral route every day as needed for constipation Active Ketoconazole (Nizoral A-D) 1 % shampooIndicati ons:Scalp itch APPLY TO DAMP SCALP, LATHER, AND RINSE EVERY 3 DAYS DIRECTED 200 mL 11 3 Active Additional Information Patient not taking.Reported on 06/16/2023 diphenhydrAMINE (BENADryl) 25 MG capsule Take 1 capsule (25 mg) by mouth every 4 (four) hours if needed for sleep. 30 capsule 4 Active Additional Information Patient not taking.Reported on 05/02/2024 betamethasone valerate (Valisone) 0.1 % cream Apply topically 2 times daily. 30 g 4 Active baclofen (Lioresal) 10 MG tabletIndicatio ns:Acute non intractable tension-type headache TAKE 1 TABLET BY MOUTH THREE TIMES DAILY NEEDED FOR MUSCLE SPASMS (NECK) 30 tablet 1 4 Active aspirin-acetami nophen-caffeine (Pain Reliever Plus) 250-250-65 MG tabletIndicatio ns:Intractable migraine without aura and without status migrainosus TAKE 1 TABLET BY MOUTH EVERY 8 HOURS NEEDED FOR HEADACHE 30 tablet 1 4 Active budesonide-form oterol (Symbicort) 80-4.5 MCG/ACT inhalerIndicati ons:Wheezing Inhale 2 puffs every 4-6 hours as needed for cough and wheeezing 1 each 11 4 Active triamcinolone (Kenalog) 0.1 % ointmentIndicat ions:Rash APPLY TOPICALLY TO AFFECTED AREA(S) TWICE DAILY 30 g 1 5 Active amoxicillin (Amoxil) 500 MG capsuleIndicati ons:Strep pharyngitis Take 1 tab po bid for 10 days 20 capsule 5 Active Fluocinolone Acetonide Scalp 0.01 % oilIndications: Seborrheic dermatitis of scalp Apply in evening, wash off in AM, 3x/wk 118.28 mL 2 5 Active amitriptyline (Elavil) 25 MG tabletIndicatio ns:Intractable migraine without aura and without status migrainosus Take 1 tablet (25 mg) by mouth at bedtime. 90 tablet 5 10/22/19 25 Active Active Problems Problem Noted Date Diagnosed Date [...] Encounters Date Type Department Care Team Description 08/10/2024 Telephone [facility] [place] [address] Inocencio Cassidy ANP Results 08/03/2024 Population Health Risk Score [facility] () Department [address] [place] [phone] Provider, Population Health Generic 08/01/2024 Telephone [facility] [place] [address] Inocencio Cassidy ANP 07/27/2024 Orders Only [address] [address] Milagro Pinzon NP Acute cystitis without hematuria (Primary Dx) 07/25/2024 11:15 AM EST Office Visit [address] [address] Milagro Pinzon NP Dysuria (Primary Dx); Abnormal urinalysis 07/25/2024 Travel 07/24/[address] [address] Inocencio Cassidy ANP Nurse Triage 07/23/[address] [address] Inocencio Cassidy ANP Med Refill 07/19/2024 2:15 PM EST Office Visit [address] [address] Inocencio Cassidy ANP Shortness of breath (Primary Dx); History of pneumonia; Seborrheic dermatitis of scalp; Easy bruising 07/19/2024 Travel 07/16/[address] [address] Inocencio Cassidy ANP Chart Prep from Last 3 Months Immunizations Immunization Administration Dates Next Due DTaP 02/18/2012, 5,07/01/1993,11/10,1990,1990 [...] Description 10/18/2024 9:15 AM EDT Office Visit [facility] [address] [place], [place] [phone] Inocencio Cassidy ANP [address] [place], [place] [phone] Health Maintenance Due Date Last Done Comments Family Planning (PISQ) 2005 COVID-19 Vaccine ( season) 2024 06/24/2022, 10/01/2020, 09/03/2020 SDOH Screening 06/14/2025 06/14/2024 Alcohol/Substance Use Screening [...] on patient's age to complete this topic Meningococcal B Vaccine Aged Out No l onger eligible based on patient's age to complete [...] DIPSTICK Routine 07/25/2024 11:52 AM EST Dysuria CULTURE, URINE, ROUTINE Routine 07/25/2024 12:00 AM EST Dysuria XR CHEST 2 VIEWS Routine 07/23/2024 2:10 PM EST History of pneumonia Shortness of breath IRON AND TOTAL IRON BINDING CAPACITY Routine 07/19/2024 3:28 PM EST Easy bruising CBC WITH AUTO DIFFERENTIAL Routine 07/19/2024 3:28 PM EST Shortness of breath Easy bruising HEPATITIS C AB W/REFL TO HCV RNA, [...] Media Lot # [id number] Lot# Expiration Date , Urine 07/25/2024 11:5 2 AM EST us Milagro Pinzon NP POINT OF CARE TEST ENTER/EDIT O RDERABLES Final Result * Culture, Urine, Routine (07/25/2024 12:00 AM EST) Urine Urine specimen obtained by clean catch procedure / Unknown 07/25/2024 07/25/2024 Comment:UACC Narrative [facility] - 07/28/2024 8:04 AM EST Escherichia coli Quant > 100,000 cfu/mL Escherichia coli: Ampicillin >=32(R) Escherichia coli: Cefazolin (Urine) 2(S) Escherichia coli: Cefepime <=0.12(S) Escherichia coli: Ceftriaxone <=0.25(S) Escherichia coli: Ciprofloxacin <=0.06(S) Escherichia coli: Gentamicin <=1(S) Escherichia coli: Nitrofurantoin <=16(S) Escherichia coli: Trimethoprim/Sulfamethoxazole <=20(S) Specimen Source: Urine clean catch us Milagro Pinzon NP LAB MICROBIOLOGY - GENERAL JUAN KEEN Final Result [facility] [address] [place] [address] [phone] * XR Chest 2 Views (07/23/2024 2:10 PM EST) Anatomical Region Laterality Modality Chest Radiographic Batsheva ging 07/23/2024 2:10 PM EST Narrative 07/23/2024 3:40 PM EST ?[facility] ?[address] ?[place] [address] ?XRay Report ? Signed ? Patient: Lamin Johnsonn ?MR#: ?? [id number] ? : 1990 ?Acct:[id number] ? Age/Sex: 34 / F ?ADM Date: 07/23/24 ? Loc: HO.HHCX ? Attending Dr: Inocencio Cassidy [employer]NATIONAL BANKER ? Ordering Physician: INOCENCIO CASSIDY NP ?? Date of Service: 07/23/24 ?? Procedure(s): XR chest 2V ?? Accession Number(s): [id number] ? cc: INOCENCIO CASSIDY NP ? EXAMINATION: [...] DD/ 1410 ? TD/TT: 07/23/24 1419 ? Auto Finance Sales Rep: MSM ? Procedure Note Donotlisater, Image - 07/23/2024 [facility] [address] [place] [address] XRay Report Signed Patient: Lamin JohnsonnMR#: [id number] : 1990Acct:[id number] Age/Sex: 34 / FADM Date: 07/23/24 Loc: HO.HHCX Attending Dr: Inocencio Cassidy NP Ordering Physician: INOCENCIO CASSIDY NP Date of Service: 07/23/24 Procedure(s): XR chest 2V Accession Number(s): [id number] cc: INOCENCIO CASSIDY NP EXAMINATION: XR CHEST [...] 07/23/24 1537 DD/ 1410 TD/TT: 07/23/24 1419 [employer] Sales Rep: MSM Inocencio DOWNEY IM XR PROCEDURES Final Result * (ABNORMAL) CBC auto differential (07/19/2024 3:28 PM EST) White Blood Count 5.7 4.8 - 10.8 X10*3/uL [facility] Red Blood Count 4.48 4.20 - 5.50 X10*6/uL [facility] Hemoglobin 13.4 12.0 - 16.0 g/dl [facility] Hematocrit 38.4 37.0 - 47.0 % [facility] Mean Corpuscular Volume 85.7 80.0 - 98.0 fL [facility] Mean Corpuscular Hemoglobin 29.9 27.0 - 33.0 pg [facility] Mean Corpuscular HGB Conc 34.9 31.0 - 35.0 g/dl [facility] Red Cell Distribution Width 12.7 11.0 - 16.0 % [facility] Platelet Count 278 160 - 400 X10*3/uL [facility] Mean Platelet Volume 9.6 9.4 - 12.3 fL [facility] Neutrophils Percent Auto 50.8 45 - 73 % [facility] Imm Gran Pct Auto 0.2 0.0 - 0.4 % [facility] Lymphocytes Percent Auto 35.6 20 - 40 % [facility] Monocytes Percent Auto 7.4 2 - 11 % [facility] Eosinophils Percent Auto 4.9(H) 0 - 4 % [facility] Basophils Percent Auto 1.1 0 - 2 % [facility] NRBC Pct Auto 0.0 0.0 - 0.2 /100WBC [facility] Neutrophils Absolute Auto 2.9 2.0 - 8.3 x10*3/uL [facility] Imm Gran Abs Auto 0.01 0.00 - 0.03 X10*3/uL [facility] Lymphocytes Absolute Auto 2.0 1.2 - 4.9 X10*3/uL [facility] Monocytes Absolute Auto 0.4 0.1 - 1.2 X10*3/uL [facility] Eosinophils Absolute Auto 0.3 0.0 - 0.4 X10*3/uL [facility] Basophils Absolute Auto 0.1 0.0 - 0.2 X10*3/uL [facility] NRBC Abs Auto 0.000 0.0 - 0.012 X10*3/uL [facility] Blood Venous blood specimen / Unknown 07/19/2024 3:28 PM EST 07/19/2024 4:04 PM EST Inocencio Cassidy [facility] LAB BLOOD ORDERABLES Final Resul t Performing Organization Address [facility] Phone Number [facility] [address] [place] [phone] * Iron And Total Iron Binding Capacity (07/19/2024 3:28 PM EST) Iron 130 30 - 160 mcg/dL [facility] Total Iron Binding Capacity 300 228 - 428 mcg/dL [facility] Percent Iron Saturation 43 15 - 50 % [facility] Unsaturated Iron Binding 170 ug/dL [facility] Blood Venous blood specimen / Unknown 07/19/2024 3:28 PM EST 07/19/2024 4:04 PM EST Inocencio Cassidy [facility] LAB BLOOD ORDERABLES Final Resul t Performing Organization Address [facility] Phone Number [facility] [address] [place] [phone] * Hepatitis C Antibody with Reflex to HCV, RNA, Quantitative, Real-Time PCR (06/16/2023 10:36 AM EST) Pathologist [facility] Hepatitis C Antibody Nonreactive Nonreactive [facility] Comment:Antibodies to HCV no t detected; does not exclude early acuteHCV infection. Blood Venous blood specimen / Unknown 06/16/2023 10:36 AM EST 06/16/2023 11:36 AM EST Inocencio Cassidy [facility] LAB BLOOD ORDERABLES Final Resul t Performing Organization Address [facility] Phone Number [facility] [address] [place] [phone] * HIV-1/2 Antigen and Antibodies, Fourth Generation, with Reflexes (06/16/2023 10:36 AM EST) Pathologist [facility] HIV AB/AG Nonreactive Nonreactive [facility] Comment:HIV-1 p24 Ag and/or HIV-1/HIV-2 Ab not detected.A test result that is nonreactive does not exclude thepossibility of exposure to or infection with HIV-1 and/orHIV-2. Nonreactive results in this assay for individualswith prior exposure to HIV-1 and/or HIV-2 may be due toantigen and antibody levels that are below the limit ofdetection of this assay.The V Wave HIV Ag/Ab Combo assay result andsupplemental assay results should be interpreted inconjunction with the patient's clinical presentation,history and other laboratory results. If the results areinconsistent with clinical evidence, additional testing issuggested to confirm the result. Blood Venous blood specimen / Unknown 06/16/2023 10:36 AM EST 06/16/2023 11:36 AM EST Inocencio [facility] LAB BLOOD ORDERABLES Final Resul t [facility] [address] [place] [phone] from Last 3 Months or Most Recently Relevant to Health Maintenance Insurance C3 Care Teams Well Point Pumping Supervisor Relationship Specialty Start Date End Date Inocencio Cassidy ANP [address] [place] [phone] PCP - General Family Medicine 11/08/19
--- NOTE | 2024-10-04 09:58 | PFT_ITS ---
Spirometry [] Lung Volumes [] Diffusion Capacity [] Methacholine Challenge [] Flow Volume Loops [] MVV [] MIP/MEP(Max inspiratory pressure/Max expiratory pressure) [] 6 Minute Walk Test [] ABG [] Interpretation [] MTDD
[2024-10-04 10:31] VITALS: PULSE 87; O2SAT 100
== END 2024-10-04 09:18 | disposition home or self-care (01) ==
LOC: HO.RESP 09:17
PROVIDERS: PCP Nurse Practitioner Primary Care; Visit Provider Nurse Practitioner Primary Care
DX: R06.02 Shortness of breath (principal)
CPT/HCPCS: 94010; 94640; 94727; 94729

== ENCOUNTER → 2024-10-04 09:58 | Outpatient (BNV) | payer MEDICAID, SELFPAY | PROVIDERS: PCP Nurse Practitioner Primary Care; Visit Provider Internal Medicine Pulmonary Disease | DX: R94.2 Abnormal results of pulmonary function studies (principal) | CPT/HCPCS: 94060; 94727; 94729 ==

== ENCOUNTER 2024-12-20 12:59 | Outpatient (REF) | payer MEDICAID, SELFPAY ==
--- OUTSIDE RECORDS SUMMARY | 2024-12-20 13:08 | XMS_ITS | Encounter Summary ---
Author Organization [employer] Address [address] [facility] [address] [place] [address] Care Team Providers Care Weight And Balance Control Agent Name Role Phone Soha Aguilera Primary Care Provider [phone] Reason for Visit * Reason Onset Date Comments Results 09/26/2023 Encounter Details Date Type Department Care Team ([facility] st Contact Info) Description 09/26/2023 Telephone [facility] [address] [place], [place] [phone] Soha Aguilera ANP [address] [place] [address] Results Social History Tobacco Use Types Packs/Day [...] Care Team (Late st Contact Info) Description 02/21/2025 9:00 AM EDT Office Visit [facility] [address] [place] [address] Soha Aguilera ANP [address] [place] [address] documented as of this encounter Visit Diagnoses Not on filedocumented in this encounter Care Teams Weight And Balance Control Agent Relationship Specialty Start Date End Date Soha Aguilera ANP [address] [place] [address] PCP - General Family Medicine 11/08/19 documented as of this encounter
[2024-12-20 15:29] LABS: CT PCR Urine NOT DETECTED (Not Detect.); NG PCR Urine NOT DETECTED (Not Detect.)
== END 2024-12-20 13:00 | disposition home or self-care (01) ==
LOC: HO.HHCLNP 12:59
PROVIDERS: Visit Provider Family Medicine
DX: R39.9 Unspecified symptoms and signs involving the genitourinary system (principal); Z11.8 Encounter for screening for other infectious and parasitic diseases
CPT/HCPCS: 36415; 87491; 87591

== ENCOUNTER 2025-01-10 09:25 | Outpatient (REF) | payer MEDICAID, SELFPAY ==
--- OUTSIDE RECORDS SUMMARY | 2025-01-10 10:34 | XMS_ITS | Encounter Summary ---
Author Organization [employer] Address [address] [facility] [address]t [place] [address] Care Team Providers Care Auto Apprentice Mechanic Name Role Phone Soha Aguilera Primary Care Provider [phone] Reason for Visit * Reason Onset Date Comments Results 09/26/2023 Encounter Details Date Type Department Care Team ([facility] st Contact Info) Description 09/26/2023 Telephone [facility] [address] [place], [place] [phone] Soha Aguilera ANP [address] [place] [address] Results Social History Tobacco Use Types Packs/Day [...] Care Team (Late st Contact Info) Description 03/01/2025 9:00 AM EDT Office Visit [facility] [address] [place] [address] Soha Aguilera ANP [address] [place] [address] documented as of this encounter Visit Diagnoses Not on filedocumented in this encounter Care Teams Auto Apprentice Mechanic Relationship Specialty Start Date End Date Soha Aguilera ANP [address] [place] [address] PCP - General Family Medicine 11/08/19 documented as of this encounter
[2025-01-10 11:25] LABS: MANUAL DIFF FLAG NO
[2025-01-10 11:40] LABS: Hematocrit 38.5 % (37.0-47.0); Hemoglobin 12.8 g/dl (12.0-16.0); Imm Gran Abs Auto 0.01 X10*3/uL (0.00-0.03); Imm Gran Pct Auto 0.2 % (0.0-0.4); Lymphocytes Absolute Auto 1.9 X10*3/uL (1.2-4.9); Mean Corpuscular HGB Conc 33.2 g/dl (31.0-35.0); Mean Corpuscular Hemoglobin 29.8 pg (27.0-33.0); Mean Corpuscular Volume 89.5 fL (80.0-98.0); NRBC Abs Auto 0.000 X10*3/uL (0.0-0.012); NRBC Pct Auto 0.0 /100WBC (0.0-0.2); Platelet Count 302 X10*3/uL (160-400); Red Blood Count 4.30 X10*6/uL (4.20-5.50); White Blood Count 5.5 X10*3/uL (4.8-10.8)
[2025-01-10 12:13] LABS: Alanine Aminotransferase 27 U/L (0-31); Albumin Level 4.5 g/dL (3.5-5.0); Alkaline Phosphatase 47 U/L (39-117); Anion Gap 10 (12-20); Aspartate Amino Transferase 22 U/L (5-31); Blood Urea Nitrogen 13 mg/dL (9-16); Calcium 9.1 mg/dL (8.4-10.2); Carbon Dioxide 28 mmol/L (22-29); Chloride 107 mmol/L (96-108); Estimated Glomerular Filt Rate > 60; Potassium 4.2 mmol/L (3.3-5.1); Sodium 141 mmol/L (135-145); Total Protein 6.8 g/dL (6.5-8.0)
[2025-01-10 12:32] LABS: Folate 4.4 ng/mL (> or = 4.0); Vitamin B12 325 pg/mL (200-900)
[2025-01-11 11:10] LABS: Bacterial Vaginosis PCR POSITIVE (Negative); Candida Group PCR NOT DETECTED (Not Detect); Candida glab krusei PCR NOT DETECTED (Not Detect); Trichomonas vaginalis PCR NOT DETECTED (Not Detect)
[2025-01-11 11:42] LABS: CT PCR NOT DETECTED (Not Detect.); NG PCR NOT DETECTED (Not Detect.)
== END 2025-01-10 09:26 | disposition home or self-care (01) ==
LOC: HO.HHCL 09:25
PROVIDERS: PCP Nurse Practitioner Primary Care; Visit Provider Family Medicine
DX: Z11.8 Encounter for screening for other infectious and parasitic diseases (principal); Z11.3 Encounter for screening for infections with a predominantly sexual mode of transmission; R53.83 Other fatigue; R42 Dizziness and giddiness; B37.31 Acute candidiasis of vulva and vagina
CPT/HCPCS: 36415; 80053; 81515; 82306; 82607; 82746; 84443; 85025; 87491; 87591

== ENCOUNTER 2025-03-01 16:20 | Outpatient (REF) | payer MEDICAID, SELFPAY ==
[2025-03-02 02:46] LABS: Bacterial Vaginosis PCR POSITIVE (Negative); Candida Group PCR NOT DETECTED (Not Detect); Candida glab krusei PCR NOT DETECTED (Not Detect); Trichomonas vaginalis PCR NOT DETECTED (Not Detect)
== END 2025-03-01 16:21 | disposition home or self-care (01) ==
LOC: HO.HHCLNP 16:20
PROVIDERS: Visit Provider Nurse Practitioner Primary Care
DX: N89.8 Other specified noninflammatory disorders of vagina (principal); Z20.2 Contact with and (suspected) exposure to infections with a predominantly sexual mode of transmission
CPT/HCPCS: 81515